=== PATIENT | female | born 1985 | race Caucasian/White ===

== ENCOUNTER 2017-05-03 11:55 | Emergency (ER) | payer MEDICAID ==
--- NOTE | 2017-05-03 12:57 | EDM.PDOC ---
ED HPI GENERAL MEDICAL PROBLEM - General Chief Complaint: ENT Problem Stated Complaint: ABCESS TOOTH Time Seen by Provider: 05/03/17 13:02 Source of Information: Reports: Patient History Limitations: Reports: No Limitations - History of Present Illness INITIAL COMMENTS - FREE TEXT/NARRATIVE: pt arrived with facial swelling and a probable abcessd tooth. She has a fair amount of discomfort and she has used more of her pain meds then she should. Onset: Gradual, Other ( last 2-3 days. ) Duration: Hour(s):, Getting Worse Location: Reports: Face Associated Symptoms: Reports: Headaches, Other (pt has a history of migraine headaCHES. sHE DOES HAVE A UPCOMING APPT WITH dR Schmidt.) Left Tooth/Teeth Pain Score (Numeric/FACES): 6 - Related Data Allergies Allergy/AdvReac Type Severity Reaction Status Date / Time No Known Allergies Allergy Verified 05/03/17 12:24 Home Meds: Home Meds ClonazePAM [KlonoPIN] 1 tab PO ASDIRECTED 05/03/17 [History] FLUoxetine HCl [Fluoxetine HCl] 1 tab PO DAILY 05/03/17 [History] Hydrocodone/Acetaminophen [Hydrocodon-Acetaminophen 5-325] 1 tab PO BID PRN [History] Meloxicam 1 tab PO DAILY 05/03/17 [History] OLANZapine [Olanzapine] 1 tab PO DAILY 05/03/17 [History] Prazosin [Minpress] 1 tab PO DAILY 05/03/17 [History] Past Medical History Cardiovascular History: Reports: Hypertension, Other (See Below) Other Cardiovascular History: "small heart", tachycardia Respiratory History: Reports: Other (See Below) Other Respiratory History: chest tube for collapsed lung 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 Musculoskeletal History: Reports: Fracture, Osteoarthritis, Other (See Below) Other Musculoskeletal History: degenerative osteoarthritis Neurological History: Reports: Head Trauma, Migraines Psychiatric History: Reports: Anxiety, Bipolar, Depression, PTSD Oncologic (Cancer) History: Reports: Cervix - Past Surgical History HEENT Surgical History: Reports: Myringotomy w Tube(s) GI Surgical History: Reports: Other (See Below) Other GI Surgeries/Procedures: "bowel surgery after pole went through side", Musculoskeletal Surgical History: Reports: Other (See Below) Other Musculoskeletal Surgeries/Procedures:: right foot and right elbow surgery for bone fragment removal Social & Family History - Tobacco Use Smoking Status *Q: Light Tobacco Smoker Years of Tobacco use: 17 Packs/Tins Daily: 0.4 - Recreational Drug Use Recreational Drug Use: No ED ROS ENT - Review of Systems Review Of Systems: See Below Constitutional: Reports: No Symptoms, Chills HEENT: Reports: No Symptoms, Dental Pain Respiratory: Reports: No Symptoms Cardiovascular: Reports: No Symptoms Endocrine: Reports: No Symptoms GI/Abdominal: Reports: No Symptoms : Reports: No Symptoms ED EXAM, ENT - Physical Exam Exam: See Below Text/Narrative:: T ARRIVED WITH INCREASED PAIN IN THE LEFT UPPER DENTALAREA. sHE HAS A HISTORY OF MULTIPLE CARRIOUS TEETH. Exam Limited By: No Limitations General Appearance: Alert, Anxious, Mild Distress Ears: Normal TMs Nose: Normal Inspection Mouth/Throat: Dental Pain, Dental Tenderness, Gum Swelling, Other (PT HAS LEFT FACIAL SWELLING. ) Head: Atraumatic Neck: Lymphadenopathy (L) Respiratory/Chest: No Respiratory Distress Cardiovascular: Regular Rate, Rhythm GI/Abdominal: Soft, Non-Tender Course - Vital Signs Last Recorded V/S: Last Vital Signs Temp 36.4 C 05/03/17 12:21 Pulse 105 H 05/03/17 12:21 Resp 16 05/03/17 12:21 BP 97/73 05/03/17 12:21 Pulse Ox 97 05/03/17 12:21 - Orders/Labs/Meds Meds: Medications Discontinued Medications Generic Name Dose Route Start Last Admin Trade Name Freq PRN Reason Stop Dose Admin Ceftriaxone Sodium 1 gm/ 0 gm 05/03/17 12:54 Lidocaine HCl 2.1 ml IM 05/03/17 12:55 ONETIME ONE - Re-Assessments/Exams Free Text/Narrative Re-Assessment/Exam: 05/03/17 13:12 PT WAS GIVEN ROCEPHEN 1 GM IM. a REFERAL FOR THE DENTAL CLINIC WAS SET UP FOR NEXT Sunday. Departure - Departure Time of Disposition: 12:54 Disposition: Home, Self-Care 01 Condition: Fair Clinical Impression: Dental abscess - Discharge Information Referrals: Nelida Holden MD [Primary Care Provider] - Forms: ED Department Discharge Care Plan Goals: push fluids, irrigate mouth with saline, clindomycin 300mg tid, norco 5/325 q6h prn for pain dental appt next sunday.
[2017-05-03] MEDS: cefTRIAXone 1 GM, Lidocaine 1% 2.1 ML IM ONE ×2 (13:20)
== END 2017-05-03 13:54 | disposition home or self-care (01) ==
LOC: JP.ED 11:55
DX: K04.7 Periapical abscess without sinus (principal); I10 Essential (primary) hypertension; F41.9 Anxiety disorder, unspecified; F32.9 Major depressive disorder, single episode, unspecified; F17.210 Nicotine dependence, cigarettes, uncomplicated; Z79.899 Other long term (current) drug therapy
CPT/HCPCS: 96372; 99283-25; J0696

== ENCOUNTER 2017-05-27 17:59 | Emergency (ER) | payer MEDICAID ==
[2017-05-27] MEDS ORDERED: Acetaminophen/oxyCODONE 325-10 MG Tab PO ONE (19:00)
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
== END 2017-05-27 19:32 | disposition home or self-care (01) ==
LOC: JP.ED 17:59
DX: G89.29 Other chronic pain (principal); M25.551 Pain in right hip; Z79.899 Other long term (current) drug therapy; F17.210 Nicotine dependence, cigarettes, uncomplicated
CPT/HCPCS: 99283; A9270

== ENCOUNTER 2018-08-24 16:27 | Emergency (ER) | payer MEDICAID ==
[2018-08-24] MEDS ORDERED: Ketorolac 30 MG/ML SDV IVPUSH ONE (17:35)
[2018-08-24] MEDS ORDERED: Ondansetron 4 MG/2 ML SDV IVPUSH ONE (17:36)
[2018-08-24] MEDS ORDERED: Morphine 2 MG/ML Syringe IVPUSH ONE (17:37)
[2018-08-24] MEDS ORDERED: Cyclobenzaprine 10 MG Tab PO ONE (17:38)
--- NOTE | 2018-08-24 17:44 | EDM.PDOC ---
ED HPI GENERAL MEDICAL PROBLEM - General Chief Complaint: Back Pain or Injury Stated Complaint: BACK PAIN Time Seen by Provider: 08/24/18 17:07 Source of Information: Reports: Patient History Limitations: Reports: No Limitations - History of Present Illness INITIAL COMMENTS - FREE TEXT/NARRATIVE: 32 yo female presents with radiating right sided lumbar back pain. She had a MRI 4 days ago and found L3-L4, L4-L5 protruding disc with impingement. radiating pain into right leg. She does have appt with neuro/surgery. She has been taking Gabapentin and methocarbamol, last took medication this AM. no new injury but she did note that this AM she was lifting cases of chicken. low back Pain Score (Numeric/FACES): 10 - Related Data Allergies Allergy/AdvReac Type Severity Reaction Status Date / Time No Known Allergies Allergy Verified 05/27/17 18:29 Home Meds: Home Meds OLANZapine [Olanzapine] 20 mg PO DAILY 05/03/17 [History] Dextroamphetamine/Amphetamine [Adderall 20 mg Tablet] 20 mg PO BID 08/24/18 [ History] Gabapentin [Neurontin] 300 mg PO BID 08/24/18 [History] Methocarbamol 500 mg PO TID PRN 08/24/18 [History] Omeprazole 40 mg PO ACBREAKFAST 08/24/18 [History] lamoTRIgine [Lamictal] 300 mg PO DAILY 08/24/18 [History] Past Medical History Cardiovascular History: Reports: Hypertension, Other (See Below) Other Cardiovascular History: "small heart", tachycardia Respiratory History: Reports: Other (See Below) Other Respiratory History: chest tube for collapsed lung Gastrointestinal History: Reports: GERD 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 Musculoskeletal History: Reports: Fracture, Osteoarthritis, Other (See Below) Other Musculoskeletal History: degenerative osteoarthritis Neurological History: Reports: Head Trauma, Migraines Psychiatric History: Reports: Anxiety, Bipolar, Depression, PTSD Oncologic (Cancer) History: Reports: Cervix - Past Surgical History HEENT Surgical History: Reports: Myringotomy w Tube(s) GI Surgical History: Reports: Other (See Below) Other GI Surgeries/Procedures: "bowel surgery after pole went through side", Musculoskeletal Surgical History: Reports: Hip Replacement, Other (See Below) Other Musculoskeletal Surgeries/Procedures:: right foot and right elbow surgery for bone fragment removal, right hip replacement Social & Family History - Tobacco Use Smoking Status *Q: Current Every Day Smoker Years of Tobacco use: 15 Packs/Tins Daily: 0.5 - Recreational Drug Use Recreational Drug Use: No ED ROS GENERAL - Review of Systems Review Of Systems: See Below Constitutional: Denies: Fever, Chills Respiratory: Denies: Shortness of Breath, Wheezing Cardiovascular: Denies: Chest Pain GI/Abdominal: Denies: Abdominal Pain ED EXAM,LOWER BACK PAIN/INJURY - Physical Exam Exam: See Below Exam Limited By: No Limitations General Appearance: Alert, WD/WN, No Apparent Distress Head: Atraumatic, Normocephalic Respiratory/Chest: No Respiratory Distress, Lungs Clear, Normal Breath Sounds, No Accessory Muscle Use, Chest Non-Tender. No: Crackles, Rhonchi, Wheezing Cardiovascular: Regular Rate, Rhythm, No Murmur Back Exam: Decreased Range of Motion (pain), Paraspinal Tenderness (right lumbar ). No: CVA Tenderness (R), CVA Tenderness (L) Neurological: Alert, Normal Mood/Affect Skin Exam: Warm, Dry, Intact Course - Vital Signs Last Recorded V/S: Last Vital Signs Temp 37.5 C 08/24/18 16:48 Pulse 60 08/24/18 18:38 Resp 12 08/24/18 18:38 BP 139/89 08/24/18 18:38 Pulse Ox 100 08/24/18 18:38 - Orders/Labs/Meds Meds: Medications Discontinued Medications Generic Name Dose Route Start Last Admin Trade Name Freq PRN Reason Stop Dose Admin Cyclobenzaprine HCl 10 mg 08/24/18 17:38 08/24/18 18:18 Flexeril PO 08/24/18 17:39 10 mg ONETIME ONE Administration Diphenhydramine HCl 25 mg 08/24/18 18:29 08/24/18 18:32 Benadryl IVPUSH 08/24/18 18:30 25 mg ONETIME ONE Administration Ketorolac Tromethamine 30 mg 08/24/18 17:35 08/24/18 18:24 Toradol IVPUSH 08/24/18 17:36 30 mg ONETIME ONE Administration Morphine Sulfate 1 mg 08/24/18 17:37 08/24/18 18:22 Morphine IVPUSH 08/24/18 17:38 1 mg ONETIME ONE Administration Ondansetron HCl 4 mg 08/24/18 17:36 08/24/18 18:19 Zofran IVPUSH 08/24/18 17:37 4 mg ONETIME ONE Administration Departure - Departure Time of Disposition: 18:57 Disposition: Home, Self-Care 01 Condition: Good Clinical Impression: Lumbar radicular pain - Discharge Information *PRESCRIPTION DRUG MONITORING PROGRAM REVIEWED*: Not Applicable *COPY OF PRESCRIPTION DRUG MONITORING REPORT IN PATIENT SAVANNA: Not Applicable Instructions: Muscle Strain, [id number] Referrals: Nelida Holden MD [Primary Care Provider] - Forms: ED Department Discharge Additional Instructions: prednisone burst - at the completion of the burst then naproxen (Aleve) twice daily until you see neurosurgery continue with your muscle relaxer as needed ice and heat alternating
[2018-08-24] MEDS ORDERED: diphenhydrAMINE 50 MG/ML SDV IVPUSH ONE (18:29)
== END 2018-08-24 19:29 | disposition home or self-care (01) ==
LOC: JP.ED 16:27
DX: M54.16 Radiculopathy, lumbar region (principal); I10 Essential (primary) hypertension; F41.9 Anxiety disorder, unspecified; F17.210 Nicotine dependence, cigarettes, uncomplicated; Z79.899 Other long term (current) drug therapy
CPT/HCPCS: 96374; 96375; 99283; A9270; J1200; J1885; J2270; J2405

== ENCOUNTER 2018-09-28 19:52 | Emergency (ER) | payer MEDICAID ==
[2018-09-28] MEDS ORDERED: LORazepam 1 MG Tab PO ONE (20:41)
[2018-09-28] MEDS ORDERED: Ketorolac 60 MG/2 ML SDV IM ONE (21:09)
--- NOTE | 2018-09-28 21:18 | EDM.PDOC ---
ED HPI GENERAL MEDICAL PROBLEM - General Chief Complaint: Neurological Problem Stated Complaint: DIZZY, CAN'T USE LEGS/FALLS Time Seen by Provider: 09/28/18 21:00 Source of Information: Reports: Patient, Old Records, RN History Limitations: Reports: No Limitations - History of Present Illness INITIAL COMMENTS - FREE TEXT/NARRATIVE: 32 yo female with known lumbar disc herniations presents with a hx of her legs giving out 3 times today. Has had this happen in the past. Was to the clinic for this recently and they didn't know what was wrong, her sx's had resolved then before she presented. Patient comes now to the ER due to the increasing frequency of this problem. No urinary or bowel incontinence. Had an MRI of her lumbar spine about 6 weeks ago and has seen a neurosurgeon. This neurosurgeon mentioned she may need an epidural injection in her low back. Fell in our waiting room due to her leg weakness and a concurrent panic attack that she also is prone to. Did take Ativan 1 mg po at home before arrival that didn't not resolve her attack. Onset: Today Onset Date: 09/28/18 Duration: Week(s):, Getting Worse, Intermittent Location: Reports: Lower Extremity, Left (Right leg is worse than L. ), Lower Extremity, Right Quality: Reports: Ache Severity: Moderate Improves with: Reports: Medication Worsens with: Reports: Other (? time) Context: Reports: Other (see HPI) Associated Symptoms: Reports: Headaches (has one now.), Weakness (both legs intermittently). Denies: Fever/Chills, Syncope Treatments DIRECTOR STRATEGY: Reports: Other (see below) (Usual meds + Ativan 1 mg po) low back Pain Score (Numeric/FACES): 7 - Related Data Allergies Allergy/AdvReac Type Severity Reaction Status Date / Time No Known Allergies Allergy Verified 09/28/18 20:48 Home Meds: Home Meds OLANZapine [Olanzapine] 20 mg PO BEDTIME 05/03/17 [History] Dextroamphetamine/Amphetamine [Adderall 20 mg Tablet] 20 mg PO BID 08/24/18 [ History] Gabapentin [Neurontin] 600 mg PO QID 08/24/18 [History] Methocarbamol 500 mg PO TID 08/24/18 [History] Omeprazole 40 mg PO ACBREAKFAST 08/24/18 [History] lamoTRIgine [Lamictal] 300 mg PO DAILY 08/24/18 [History] Albuterol [Ventolin HFA] 1 puff INH QID PRN 09/28/18 [History] Formoterol/Mometasone [Dulera 100 MCG/5 MCG] 2 puff INH BID 09/28/18 [History] LORazepam 1 mg PO QID 09/28/18 [History] busPIRone [Buspar] 10 mg PO TID 09/28/18 [History] carBAMazepine [Carbamazepine] 1 tab PO BEDTIME 09/28/18 [History] Past Medical History Cardiovascular History: Reports: Arrhythmia, Hypertension, Other (See Below) Other Cardiovascular History: "small heart", tachycardia Respiratory History: Reports: Asthma, Other (See Below) Other Respiratory History: chest tube for collapsed lung Gastrointestinal History: Reports: GERD 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 Musculoskeletal History: Reports: Fracture, Osteoarthritis, Other (See Below) Other Musculoskeletal History: degenerative osteoarthritis Neurological History: Reports: Brain Injury, Concussion, Head Trauma, Migraines Psychiatric History: Reports: Anxiety, Bipolar, Depression, PTSD Hematologic History: Reports: Blood Transfusion(s) Oncologic (Cancer) History: Reports: Cervix - Infectious Disease History Infectious Disease History: Reports: Chicken Pox - Past Surgical History HEENT Surgical History: Reports: Myringotomy w Tube(s) GI Surgical History: Reports: Colon, Small Bowel, Other (See Below) Other GI Surgeries/Procedures: "bowel surgery after pole went through side", Female Surgical History: Reports: Section, Cervical Cryotherapy, Tubal Ligation Musculoskeletal Surgical History: Reports: Hip Replacement, Other (See Below) Other Musculoskeletal Surgeries/Procedures:: right foot and right elbow surgery for bone fragment removal, right hip replacement Social & Family History - Tobacco Use Smoking Status *Q: Current Every Day Smoker Years of Tobacco use: 18 Packs/Tins Daily: 0.7 - Caffeine Use Caffeine Use: Reports: Coffee, Energy Drinks, Soda - Alcohol Use Days Per Week of Alcohol Use: 3 Number of Drinks Per Day: 2 Total Drinks Per Week: 6 - Recreational Drug Use Recreational Drug Use: No ED ROS GENERAL - Review of Systems Review Of Systems: See Below Constitutional: Reports: No Symptoms HEENT: Reports: No Symptoms Respiratory: Reports: No Symptoms Cardiovascular: Reports: No Symptoms GI/Abdominal: Reports: No Symptoms : Reports: No Symptoms. Denies: Incontinence Musculoskeletal: Reports: Back Pain (chronic) ED EXAM, NEURO - Physical Exam Exam: See Below Exam Limited By: No Limitations General Appearance: Alert, WD/WN, Mild Distress, Other (hyperventilating initially) Eye Exam: Bilateral Eye: Normal Inspection Ears: Normal External Exam, Normal Canal, Hearing Grossly Normal, Normal TMs Nose: Normal Inspection, No Blood Throat/Mouth: Normal Inspection, Normal Lips, Normal Oropharynx, Normal Voice, No Airway Compromise Head Exam: Atraumatic, Normocephalic Neck: Normal Inspection Respiratory/Chest: No Respiratory Distress, Lungs Clear, Normal Breath Sounds, No Accessory Muscle Use Cardiovascular: Regular Rate, Rhythm, No Edema GI/Abdominal: Normal Bowel Sounds, Soft, Non-Tender, No Distention Neurological: Alert, Normal Mood/Affect, Normal Dorsiflexion, CN II-XII Intact, Normal Plantar Flexion, No Motor/Sensory Deficits, Oriented x 3 DTR: 2+: Patella (R), Patella (L), Achilles (R), Achilles (L) Back Exam: Normal Inspection. No: CVA Tenderness (R), CVA Tenderness (L) Extremities: Normal Range of Motion, Non-Tender, No Pedal Edema Psychiatric: Normal Affect, Normal Mood Skin Exam: Warm, Dry, Normal Color, No Rash, Other (superficial abrasion R patellar area. ) Course - Vital Signs Last Recorded V/S: Last Vital Signs Temp 35.4 C 09/28/18 20:55 Pulse 83 09/28/18 21:42 Resp 18 09/28/18 21:42 BP 141/75 H 09/28/18 21:42 Pulse Ox 97 09/28/18 21:42 - Orders/Labs/Meds Meds: Medications Discontinued Medications Generic Name Dose Route Start Last Admin Trade Name Freq PRN Reason Stop Dose Admin Ketorolac Tromethamine 60 mg 09/28/18 21:09 09/28/18 21:23 Toradol IM 09/28/18 21:10 60 mg ONETIME ONE Administration Lorazepam 2 mg 09/28/18 20:41 09/28/18 20:52 Ativan PO 09/28/18 20:42 2 mg ONETIME ONE Administration Oxycodone/Acetaminophen 1 tab 09/28/18 21:56 09/28/18 22:01 Percocet 325-5 Mg PO 09/28/18 21:57 1 tab ONETIME ONE Administration Departure - Departure Time of Disposition: 22:30 Disposition: Home, Self-Care 01 Condition: Fair Clinical Impression: Lumbar disc disease with radiculopathy Headache Qualifiers: Headache type: unspecified Headache chronicity pattern: acute headache Intractability: not intractable Qualified Code(s): R51 - Headache - Discharge Information *PRESCRIPTION DRUG MONITORING PROGRAM REVIEWED*: No *COPY OF PRESCRIPTION DRUG MONITORING REPORT IN PATIENT SAVANNA: No Instructions: Herniated Disk, [id number] Referrals: Nelida Holden MD [Primary Care Provider] - Forms: ED Department Discharge Additional Instructions: F/U as discussed regarding your back issues. Consider using a walker to protect you from falls when your legs give out. Take Percocet as needed for pain.
[2018-09-28] MEDS ORDERED: Acetaminophen/oxyCODONE 325-5 MG Tab PO ONE (21:56)
== END 2018-09-28 22:33 | disposition home or self-care (01) ==
LOC: JP.ED 19:52
DX: S80.211A Abrasion, right knee, initial encounter (principal); M51.16 Intervertebral disc disorders with radiculopathy, lumbar region; R51 Headache; I10 Essential (primary) hypertension; J45.909 Unspecified asthma, uncomplicated; F31.9 Bipolar disorder, unspecified; F41.9 Anxiety disorder, unspecified; F17.210 Nicotine dependence, cigarettes, uncomplicated; Z79.899 Other long term (current) drug therapy; W18.39XA Other fall on same level, initial encounter
CPT/HCPCS: 96372; 99283; A9270; J1885

== ENCOUNTER 2018-11-07 17:56 | Emergency (ER) | payer MEDICAID ==
[2018-11-07] MEDS ORDERED: HYDROmorphone 1 MG/ML Syringe IM ONE (18:43)
--- NOTE | 2018-11-07 18:47 | EDM.PDOC ---
ED HPI GENERAL MEDICAL PROBLEM - General Chief Complaint: Lower Extremity Injury/Pain Stated Complaint: RIGHT HIP/RIGHT LEG PAIN Time Seen by Provider: 11/07/18 18:45 Source of Information: Reports: Patient History Limitations: Reports: No Limitations - History of Present Illness INITIAL COMMENTS - FREE TEXT/NARRATIVE: pt arrived with pain in the rt hip. She kessler not had a injuury. She has been much worse the last 2 days. She works on her feet alot in the [employer] at [employer]. Onset: Gradual, Other (last 2 days. ) Duration: Hour(s): Location: Reports: Lower Extremity, Right Associated Symptoms: Reports: Other ( severe rt hip pain. ) Right Hip Pain Score (Numeric/FACES): 10 - Related Data Allergies Allergy/AdvReac Type Severity Reaction Status Date / Time No Known Allergies Allergy Verified 11/07/18 18:29 Home Meds: Home Meds OLANZapine [Olanzapine] 20 mg PO BEDTIME 05/03/17 [History] Dextroamphetamine/Amphetamine [Adderall 20 mg Tablet] 20 mg PO TID 08/24/18 [ History] Gabapentin [Neurontin] 600 mg PO QID 08/24/18 [History] Omeprazole 40 mg PO ACBREAKFAST 08/24/18 [History] lamoTRIgine [Lamictal] 300 mg PO DAILY 08/24/18 [History] Albuterol [Ventolin HFA] 1 puff INH QID PRN 09/28/18 [History] Formoterol/Mometasone [Dulera 100 MCG/5 MCG] 2 puff INH BID 09/28/18 [History] busPIRone [Buspar] 10 mg PO TID 09/28/18 [History] carBAMazepine [Carbamazepine] 1 tab PO BEDTIME 09/28/18 [History] ALPRAZolam [Alprazolam] 1 tab PO QID PRN 11/07/18 [History] Cyproheptadine HCl 1 - 2 tab PO BEDTIME 11/07/18 [History] tiZANidine [Zanaflex] 1 tab PO DAILY 11/07/18 [History] Past Medical History HEENT History: Reports: Impaired Vision Cardiovascular History: Reports: Arrhythmia, Hypertension, Other (See Below) Other Cardiovascular History: "small heart", tachycardia Respiratory History: Reports: Asthma, Other (See Below) Other Respiratory History: chest tube for collapsed lung Gastrointestinal History: Reports: GERD PERIPHERAL VASCULAR TECH History: Reports: , Other (See Below) Other PERIPHERAL VASCULAR TECH 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 Musculoskeletal History: Reports: Fracture, Osteoarthritis, Other (See Below) Other Musculoskeletal History: degenerative osteoarthritis Neurological History: Reports: Brain Injury, Concussion, Head Trauma, Migraines Psychiatric History: Reports: Anxiety, Bipolar, Depression, PTSD Hematologic History: Reports: Blood Transfusion(s) Oncologic (Cancer) History: Reports: Cervix - Infectious Disease History Infectious Disease History: Reports: Chicken Pox - Past Surgical History HEENT Surgical History: Reports: Myringotomy w Tube(s) GI Surgical History: Reports: Colon, Small Bowel, Other (See Below) Other GI Surgeries/Procedures: "bowel surgery after pole went through side", Female Surgical History: Reports: Section, Cervical Cryotherapy, Tubal Ligation Musculoskeletal Surgical History: Reports: Hip Replacement, Other (See Below) Other Musculoskeletal Surgeries/Procedures:: right foot and right elbow surgery for bone fragment removal, right hip replacement Social & Family History - Tobacco Use Smoking Status *Q: Heavy Tobacco Smoker Years of Tobacco use: 15 Packs/Tins Daily: 1 - Caffeine Use Caffeine Use: Reports: Coffee, Energy Drinks, Soda - Recreational Drug Use Recreational Drug Use: No Review of Systems - Review of Systems Review Of Systems: See Below Constitutional: Reports: No Symptoms Eyes: Reports: No Symptoms Ears: Reports: No Symptoms Nose: Reports: No Symptoms Mouth/Throat: Reports: No Symptoms Respiratory: Reports: No Symptoms Cardiovascular: Reports: No Symptoms GI/Abdominal: Reports: No Symptoms Genitourinary: Reports: No Symptoms Musculoskeletal: Reports: Other (pain in the rt hip) Skin: Reports: No Symptoms ED EXAM, GENERAL - Physical Exam Exam: See Below Free Text/Narrative:: pt arrived with alot of pain in her hip. She is not having pain going down the back of her leg. Exam Limited By: No Limitations General Appearance: Alert, Anxious, Moderate Distress Ears: Normal TMs Nose: Normal Inspection Throat/Mouth: Normal Inspection Head: Atraumatic Neck: Normal Inspection Respiratory/Chest: No Respiratory Distress Cardiovascular: Normal Peripheral Pulses GI/Abdominal: Soft, Non-Tender (Female) Exam: Deferred Rectal (Female) Exam: Deferred Back Exam: Normal Inspection Extremities: Other (ptis having severe pain in the rt hip. She is very tender to palpate. ) Neurological: Alert, Oriented, Normal Cognition Course - Vital Signs Last Recorded V/S: Last Vital Signs Temp 36.7 C 11/07/18 18:25 Pulse 119 H 11/07/18 18:25 Resp 18 11/07/18 18:25 BP 154/90 H 11/07/18 18:25 Pulse Ox 97 11/07/18 18:25 - Orders/Labs/Meds Meds: Medications Discontinued Medications Generic Name Dose Route Start Last Admin Trade Name Freq PRN Reason Stop Dose Admin Hydromorphone HCl 1 mg 11/07/18 18:43 11/07/18 18:47 Dilaudid IM 11/07/18 18:44 1 mg ONETIME ONE Administration - Re-Assessments/Exams Free Text/Narrative Re-Assessment/Exam: 11/07/18 19:59 xray does not show a dislocation or any changes on the total hip. Departure - Departure Time of Disposition: 20:00 Disposition: Home, Self-Care 01 Condition: Fair Clinical Impression: Hip pain, right - Discharge Information Referrals: Nelida Holden MD [Primary Care Provider] - Forms: ED Department Discharge Care Plan Goals: cool pack to the rt hip. percocet 5/325 q6h prn for pain, minimal wt bearing, ortho appt at [facility] tomorrow.
--- NOTE | 2018-11-07 19:54 | CRLCR ---
INDICATION: Pain without injury. TECHNIQUE: AP and frog-leg lateral projections. FINDINGS: No acute fractures or dislocations identified. Ossified densities are seen projecting along the proximal superior aspect of the arthroplasty which may represent heterotopic bone or old posttraumatic changes. Enthesophyte or postsurgical change at the right iliac wing. Metallic coils of the right lower quadrant may be related to prior herniorrhaphy. IMPRESSION: Intact right hip arthroplasty with no definite acute osseous finding. Dictated by Mark Abdullahi MD @ Nov 07 2018 7:52PM Signed by Dr. Mark Abdullahi @ Nov 07 2018 7:53PM
== END 2018-11-07 20:11 | disposition home or self-care (01) ==
LOC: JP.ED 17:56
DX: M25.551 Pain in right hip (principal); I10 Essential (primary) hypertension; J45.909 Unspecified asthma, uncomplicated; K21.9 Gastro-esophageal reflux disease without esophagitis; F41.9 Anxiety disorder, unspecified; F32.9 Major depressive disorder, single episode, unspecified; Z98.51 Tubal ligation status; F17.210 Nicotine dependence, cigarettes, uncomplicated; Z79.899 Other long term (current) drug therapy
CPT/HCPCS: 73502; 96372; 99283; J1170

== ENCOUNTER 2018-11-16 19:33 | Emergency (ER) | payer MEDICAID ==
[2018-11-16] MEDS ORDERED: diphenhydrAMINE 50 MG/ML SDV IVPUSH ONE (20:22)
[2018-11-16] MEDS ORDERED: Ketorolac 30 MG/ML SDV IVPUSH ONE (20:22)
[2018-11-16] MEDS ORDERED: Prochlorperazine 10 MG/2 ML SDV IVPUSH ONE ×2 (20:22→22:38)
[2018-11-16] MEDS ORDERED: Sodium Chloride 0.9% 1,000 ML IV SCH (20:30)
--- NOTE | 2018-11-16 21:03 | EDM.PDOC ---
ED HPI GENERAL MEDICAL PROBLEM - General Chief Complaint: Abdominal Pain Stated Complaint: NAUSEA,VOMITING Time Seen by Provider: 11/16/18 20:40 Source of Information: Reports: Patient, Family (signficiant other) History Limitations: Reports: No Limitations - History of Present Illness INITIAL COMMENTS - FREE TEXT/NARRATIVE: Alert 33 year old female present to ER with vomiting and dry heaving for the last 4 days. Patient started vomiting on and attempted to use ODT Zofran she had at home with minimal improvement of her symptoms. Patient took Zofran yesterday am and dry heaved. Patient last ate around 5 pm yesterday. She attempted to try Zofran again today but dry heaving within 30 minutes which has continued all day. Patient was evaluated in the clinic and given IM Zofran with minimal improvement of nausea and dry heaving. Patient has diffuse abdominal pain which started the last 2 days. Patient believe abdominal pain is due to forceful vomiting. Patient is adamant she is not due to tubal ligation and significant other had vasectomy. Patient does not recall her last period. Patient had looser brown stool this am. No others at home are ill. Patient denies illegal or illicit drug use or marijuana use. Patient has a slight headache but not severe enough to take medications. She has a history of migraine headaches but not this week. She denies sore throat cough or URI symptoms. No urinary symptoms. No rashes or sore to skin. abd Pain Score (Numeric/FACES): 5 - Related Data Allergies Allergy/AdvReac Type Severity Reaction Status Date / Time No Known Allergies Allergy Verified 11/07/18 18:29 Home Meds: Home Meds OLANZapine [Olanzapine] 20 mg PO BEDTIME 05/03/17 [History] Dextroamphetamine/Amphetamine [Adderall 20 mg Tablet] 20 mg PO TID 08/24/18 [ History] Gabapentin [Neurontin] 600 mg PO QID 08/24/18 [History] Omeprazole 40 mg PO ACBREAKFAST 08/24/18 [History] lamoTRIgine [Lamictal] 300 mg PO DAILY 08/24/18 [History] Albuterol [Ventolin HFA] 1 puff INH QID PRN 09/28/18 [History] Formoterol/Mometasone [Dulera 100 MCG/5 MCG] 2 puff INH BID 09/28/18 [History] busPIRone [Buspar] 10 mg PO TID 09/28/18 [History] carBAMazepine [Carbamazepine] 1 tab PO BEDTIME 09/28/18 [History] ALPRAZolam [Alprazolam] 1 tab PO QID PRN 11/07/18 [History] Cyproheptadine HCl 1 - 2 tab PO BEDTIME 11/07/18 [History] tiZANidine [Zanaflex] 1 tab PO DAILY 11/07/18 [History] Metoclopramide HCl [Reglan] 10 mg PO TIDAC 5 Days #20 tablet 11/16/18 [Rx] Promethazine HCl [Phenergan] 12.5 mg RC BID PRN 5 Days #5 supp.rect 11/16/18 [Rx ] diphenhydrAMINE [Diphenhist] 50 mg PO Q6HR PRN 5 Days #1 bottle 11/16/18 [Rx] Past Medical History HEENT History: Reports: Impaired Vision Cardiovascular History: Reports: Arrhythmia, Hypertension, Other (See Below) Other Cardiovascular History: "small heart", tachycardia Respiratory History: Reports: Asthma, Other (See Below) Other Respiratory History: chest tube for collapsed lung Gastrointestinal History: Reports: GERD MEDIA SENIOR RECRUITER History: Reports: , Other (See Below) Other MEDIA SENIOR RECRUITER 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 Musculoskeletal History: Reports: Fracture, Osteoarthritis, Other (See Below) Other Musculoskeletal History: degenerative osteoarthritis Neurological History: Reports: Brain Injury, Concussion, Head Trauma, Migraines Psychiatric History: Reports: Anxiety, Bipolar, Depression, PTSD Hematologic History: Reports: Blood Transfusion(s) Oncologic (Cancer) History: Reports: Cervix - Infectious Disease History Infectious Disease History: Reports: Chicken Pox - Past Surgical History HEENT Surgical History: Reports: Myringotomy w Tube(s) GI Surgical History: Reports: Colon, Small Bowel, Other (See Below) Other GI Surgeries/Procedures: "bowel surgery after pole went through side", Female Surgical History: Reports: Section, Cervical Cryotherapy, Tubal Ligation Musculoskeletal Surgical History: Reports: Hip Replacement, Other (See Below) Other Musculoskeletal Surgeries/Procedures:: right foot and right elbow surgery for bone fragment removal, right hip replacement Social & Family History - Family History Family Medical History: Noncontributory - Tobacco Use Smoking Status *Q: Current Every Day Smoker Years of Tobacco use: 20 Packs/Tins Daily: 1 - Caffeine Use Caffeine Use: Reports: Coffee, Energy Drinks, Soda Caffeine Use Comment: 2 cups of coffee per day, 1 monster energy drink daily, a pepsi a day. - Alcohol Use Days Per Week of Alcohol Use: 3 Number of Drinks Per Day: 2 Total Drinks Per Week: 6 - Recreational Drug Use Recreational Drug Use: No ED ROS GENERAL - Review of Systems Review Of Systems: ROS reveals no pertinent complaints other than HPI. ED EXAM, GI/ABD - Physical Exam Exam: See Below Exam Limited By: No Limitations General Appearance: Alert, WD/WN, Moderate Distress Eyes: Bilateral: Normal Appearance, EOMI Ears: Normal External Exam, Normal Canal, Hearing Grossly Normal Nose: Normal Inspection, Normal Mucosa, Other (nose rings/piercings) Throat/Mouth: Normal Inspection, Normal Lips, Normal Teeth, Normal Voice, Other (mutiple mouth/lip piercings) Head: Normocephalic Neck: Normal Inspection, Supple, Non-Tender, Full Range of Motion Respiratory/Chest: No Respiratory Distress, Lungs Clear, Normal Breath Sounds, No Accessory Muscle Use, Chest Non-Tender Cardiovascular: Normal Peripheral Pulses, Regular Rate, Rhythm, No Edema, No Gallop, No JVD, No Murmur, No Rub GI/Abdominal Exam: Normal Bowel Sounds, Soft, No Distention, No Abnormal Bruit, Tender (periumbilical msucel pain worse with muscle contraction and palpation), Other (obvious vetricle midline abdomina incision). No: Distended, Guarding, Rigid, Rebound Course - Vital Signs Last Recorded V/S: Last Vital Signs Temp 37.4 C 11/16/18 20:08 Pulse 93 11/16/18 22:38 Resp 16 11/16/18 20:08 BP 113/81 11/16/18 22:38 Pulse Ox 96 11/16/18 22:38 - Orders/Labs/Meds Orders: Active Orders 24 hr Category Date Time Status Vital Signs [RC] PFP Care 11/16/18 22:48 Active Sodium Chloride 0.9% [Normal Saline] 1,000 ml Med 11/16/18 20:30 Active IV ASDIRECTED Medication Orders Sodium Chloride (Normal Saline) 1,000 mls @ 500 mls/hr IV ASDIRECTED JAY Last Admin: 11/16/18 20:51 Dose: 500 mls/hr Labs: Laboratory Tests 11/16/18 11/16/18 11/16/18 Range/Units 20:25 20:25 20:45 WBC 8.0 (4.5-11.0) K/uL RBC 4.37 (3.30-5.50) M/uL Hgb 13.8 (12.0-15.0) g/dL Hct 41.1 (36.0-48.0) % MCV 94 (80-98) fL MCH 32 H (27-31) pg MCHC 34 (32-36) % Plt Count 404 H (150-400) K/uL Neut % (Auto) 50 (36-66) % Lymph % (Auto) 38 (24-44) % [place] % (Auto) 9 H (2-6) % Eos % (Auto) 2 (2-4) % Baso % (Auto) 1 (0-1) % Sodium (140-148) mmol/L Potassium (3.6-5.2) mmol/L Chloride (100-108) mmol/L Carbon Dioxide (21-32) mmol/L Anion Gap (5.0-14.0) mmol/L BUN (7-18) mg/dL Creatinine (0.6-1.0) mg/dL Est Cr Clr Drug Dosing mL/min Estimated GFR (MDRD) (>60) Glucose (74-106) mg/dL Calcium (8.5-10.1) mg/dL Magnesium (1.8-2.4) mg/dL Total Bilirubin (0.2-1.0) mg/dL Direct Bilirubin (0.0-0.2) mg/dL Indirect Bilirubin AST (15-37) U/L ALT (12-78) U/L Alkaline Phosphatase (46-116) U/L Total Protein (6.4-8.2) g/dL Albumin (3.4-5.0) g/dL Globulin (2.3-3.5) g/dL Albumin/Globulin Ratio (1.2-2.2) Lipase (73-393) U/L HCG, Qual Urine Color Yellow (YELLOW) Urine Appearance Clear (CLEAR) Urine pH 8.5 H (5.0-8.0) Ur Specific Salome 1.020 (1.008-1.030) Urine Protein Negative (NEGATIVE) mg/dL Urine Glucose (UA) Negative (NEGATIVE) mg/dL Urine Ketones Negative (NEGATIVE) mg/dL Urine Occult Blood Trace-intact H (NEGATIVE) Urine Nitrite Negative (NEGATIVE) Urine Bilirubin Negative (NEGATIVE) Urine Urobilinogen 2.0 H (0.2-1.0) EU/dL Ur Leukocyte Esterase Negative (NEGATIVE) Urine RBC 10-20 H (0-5) Urine WBC 0-5 (0-5) Ur Epithelial Cells Many Amorphous Sediment Few Urine Bacteria Few Urine Mucus Not seen Urine HCG, Qual Negative 11/16/18 11/16/18 11/16/18 Range/Units 20:45 20:45 20:45 WBC (4.5-11.0) K/uL RBC (3.30-5.50) M/uL Hgb (12.0-15.0) g/dL Hct (36.0-48.0) % MCV (80-98) fL MCH (27-31) pg MCHC (32-36) % Plt Count (150-400) K/uL Neut % (Auto) (36-66) % Lymph % (Auto) (24-44) % [place] % (Auto) (2-6) % Eos % (Auto) (2-4) % Baso % (Auto) (0-1) % Sodium 134 L (140-148) mmol/L Potassium 3.8 (3.6-5.2) mmol/L Chloride 98 L (100-108) mmol/L Carbon Dioxide 27 (21-32) mmol/L Anion Gap 12.8 (5.0-14.0) mmol/L BUN 6 L (7-18) mg/dL Creatinine 0.7 (0.6-1.0) mg/dL Est Cr Clr Drug Dosing 94.83 mL/min Estimated GFR (MDRD) > 60 (>60) Glucose 87 (74-106) mg/dL Calcium 9.1 (8.5-10.1) mg/dL Magnesium 1.8 (1.8-2.4) mg/dL Total Bilirubin 0.3 (0.2-1.0) mg/dL Direct Bilirubin 0.11 (0.0-0.2) mg/dL Indirect Bilirubin 0.19 AST 15 (15-37) U/L ALT 16 (12-78) U/L Alkaline Phosphatase 90 (46-116) U/L Total Protein 7.5 (6.4-8.2) g/dL Albumin 3.6 (3.4-5.0) g/dL Globulin 3.9 H (2.3-3.5) g/dL Albumin/Globulin Ratio 0.9 L (1.2-2.2) Lipase 85 (73-393) U/L HCG, Qual Negative Urine Color (YELLOW) Urine Appearance (CLEAR) Urine pH (5.0-8.0) Ur Specific Sal[place] (1.008-1.030) Urine Protein (NEGATIVE) mg/dL Urine Glucose (UA) (NEGATIVE) mg/dL Urine Ketones (NEGATIVE) mg/dL Urine Occult Blood (NEGATIVE) Urine Nitrite (NEGATIVE) Urine Bilirubin (NEGATIVE) Urine Urobilinogen (0.2-1.0) EU/dL Ur Leukocyte Esterase (NEGATIVE) Urine RBC (0-5) Urine WBC (0-5) Ur Epithelial Cells Amorphous Sediment Urine Bacteria Urine Mucus Urine HCG, Qual Meds: Medications Generic Name Dose Route Start Last Admin Trade Name Freq PRN Reason Stop Dose Admin Sodium Chloride 1,000 mls @ 500 mls/hr 11/16/18 20:30 11/16/18 20:51 Normal Saline IV 500 mls/hr ASDIRECTED JAY Administration Discontinued Medications Generic Name Dose Route Start Last Admin Trade Name Freq PRN Reason Stop Dose Admin Diphenhydramine HCl 50 mg 11/16/18 20:22 11/16/18 20:53 Benadryl IVPUSH 11/16/18 20:23 50 mg ONETIME ONE Administration Ketorolac Tromethamine 30 mg 11/16/18 20:22 11/16/18 21:28 Toradol IVPUSH 11/16/18 20:23 30 mg ONETIME ONE Administration Prochlorperazine Edisylate 5 mg 11/16/18 20:22 11/16/18 21:29 Compazine IVPUSH 11/16/18 20:23 5 mg ONETIME ONE Administration Prochlorperazine Edisylate 5 mg 11/16/18 22:38 11/16/18 23:15 Compazine IVPUSH 11/16/18 22:39 5 mg ONETIME ONE Administration - Re-Assessments/Exams Free Text/Narrative Re-Assessment/Exam: IVF infusing and nausea is improving after Benadryl, Compazine and Toradol Blood work shows no acute concerning findings. Urine is contaminated but not obvious signs of infection. IVF infusion is slow due to small vein in right forearm was the only accessible site. Patient is will given repeat dose of Compazine 5 mg and attempt to eat. Patient will be prescribed numerous medication to help control nausea and dry heaving and recommend she take for the next 48 hours to ensure to nausea under control. 11/16/18 22:51 Patient feeling improved but not 100% and was able to eat a few bites of her [employer] but the last three bites was too much. Patient is anxious to go to sleep at home. Patient would like the IVF stopped and head home at this time. 11/16/18 23:50 Departure - Departure Time of Disposition: 23:52 Disposition: Home, Self-Care 01 Clinical Impression: Nausea & vomiting, Dehydration - Discharge Information Prescriptions: diphenhydrAMINE [Diphenhist] 50 mg PO Q6HR PRN 5 Days #1 bottle PRN Reason: Nausea Metoclopramide HCl [Reglan] 10 mg PO TIDAC 5 Days #20 tablet Promethazine HCl [Phenergan] 12.5 mg RC BID PRN 5 Days #5 supp.rect PRN Reason: Vomiting Instructions: Nausea, Adult, Tardive Dyskinesia, Dehydration, Adult Referrals: Nelida Holden MD [Primary Care Provider] - 3 Days (recheck with PCP if not improving) Forms: ED Department Discharge Additional Instructions: 1. Increase fluid intake. 2. Continue zofran ODT as needed for nausea and vomiting First 3. Take 3 time tomorrow then as needed Reglan 5-10 mg 30 minutes before meals to help control nausea. Caution use with mental health medications. 4. Take Benadryl 25-50mg at night to help with continued nausea and sleep. 5. Phenergan 12.5 rectal suppository if needed for severe nausea and dry heaving. Caution with mental health medications. 6. Call PCP on Sunday for recheck this week if symptoms not improving or nearly completely resolved. 7. Return to ER if new worsening symptoms or concerns. Caution with nausea medications and mental health medication with tardive dyskinesia. - Problem List & Annotations (1) Dehydration SNOMED Code(s): 51168891 Code(s): E86.0 - DEHYDRATION Status: Acute Current Visit: Yes (2) Nausea & vomiting SNOMED Code(s): 49216760 Code(s): R11.2 - NAUSEA WITH VOMITING, UNSPECIFIED Status: Acute Current Visit: Yes - My Orders Last 24 Hours: My Active Orders 11/16/18 20:30 Sodium Chloride 0.9% [Normal Saline] 1,000 ml IV ASDIRECTED 11/16/18 22:48 Vital Signs [RC] PFP - Assessment/Plan Last 24 Hours: My Active Orders 11/16/18 20:30 Sodium Chloride 0.9% [Normal Saline] 1,000 ml IV ASDIRECTED 11/16/18 22:48 Vital Signs [RC] PFP
== END 2018-11-17 00:01 | disposition home or self-care (01) ==
LOC: JP.ED 19:33
DX: E86.0 Dehydration (principal); R11.2 Nausea with vomiting, unspecified; I10 Essential (primary) hypertension; J45.909 Unspecified asthma, uncomplicated; K21.9 Gastro-esophageal reflux disease without esophagitis; F41.9 Anxiety disorder, unspecified; F17.210 Nicotine dependence, cigarettes, uncomplicated; Z79.899 Other long term (current) drug therapy
CPT/HCPCS: 36415; 80048; 80076; 81001; 81025; 83690; 83735; 84703; 85025; 96361; 96374; 96375; 96376; 99284; J0780; J1200; J1885; J7030

== ENCOUNTER 2018-12-05 15:11 | Emergency (ER) | payer MEDICAID ==
--- NOTE | 2018-12-05 16:10 | EDM.PDOC ---
ED HPI GENERAL MEDICAL PROBLEM - General Chief Complaint: Neurological Problem Stated Complaint: POSSIBLE STROKE Time Seen by Provider: 12/05/18 15:36 Source of Information: Reports: Patient - History of Present Illness INITIAL COMMENTS - FREE TEXT/NARRATIVE: Patient presents for evaluation of a recent 2 episodes of dizziness and generalized weakness in the context of being up and around. She was at work this morning and shortly after arriving at work felt dizzy and then felt as though she was having trouble getting words out of her mouth. She knew what she wanted to say but she felt as though she couldn't produce the words. She felt that her right leg was weak and that she might not be able to stand up. 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 Symptoms continued through the day and she contacted her doctor's office. After describing symptoms , they contacted the patient's as the patient was not answering her phone while working, and told him that she should be brought to the emergency department. He eventually arrived at work and brought her for further evaluation. She states that yesterday, Sunday, 04 December, she was walking down some stairs at home and felt dizzy and then both legs "gave out." She had no loss of consciousness. She has no concerning injuries from that episode that in its overall nature it was similar to the one today. She states that these episodes always happen in the morning. She was seen in this department several months ago but her symptoms were not felt to be related to anything in the brain at that time. At some point, an MRI of the brain was ordered earlier this year and that was reported to her as being normal, meaning no evidence of mass or circulation/ischemic change. She is on multiple medications and this summer was started on alprazolam which she takes 4 times a day. She otherwise has had no adjustments to other medications. In addition to symptoms described above, she feels some tightness to her chest although no trouble breathing. Her legs feel as though they are back to normal. She is not dizzy at this time but still feels as though she is having trouble getting thoughts out. Onset: Today Duration: Minutes: (20) Location: Reports: Generalized (Dizzy and not herself) Improves with: Reports: None Worsens with: Reports: None Associated Symptoms: Reports: Other (Maybe trouble getting words out.) Chest Pain Score (Numeric/FACES): 1 - Related Data Allergies Allergy/AdvReac Type Severity Reaction Status Date / Time No Known Allergies Allergy Verified 12/05/18 15:33 Home Meds: Home Meds OLANZapine [Olanzapine] 20 mg PO BEDTIME 05/03/17 [History] Dextroamphetamine/Amphetamine [Adderall 20 mg Tablet] 60 mg PO TID 08/24/18 [ History] Gabapentin [Neurontin] 600 mg PO QID 08/24/18 [History] Omeprazole 40 mg PO ACBREAKFAST 08/24/18 [History] lamoTRIgine [Lamictal] 300 mg PO DAILY 08/24/18 [History] Albuterol [Ventolin HFA] 1 puff INH QID PRN 09/28/18 [History] Formoterol/Mometasone [Dulera 100 MCG/5 MCG] 2 puff INH BID 09/28/18 [History] carBAMazepine [Carbamazepine] 1 tab PO BEDTIME 09/28/18 [History] ALPRAZolam [Alprazolam] 1 tab PO QID 11/07/18 [History] Cyproheptadine HCl 1 - 2 tab PO BEDTIME 11/07/18 [History] Metoclopramide HCl [Reglan] 10 mg PO TIDAC 5 Days #20 tablet 11/16/18 [Rx] Promethazine HCl [Phenergan] 12.5 mg RC BID PRN 5 Days #5 supp.rect 11/16/18 [Rx ] diphenhydrAMINE [Diphenhist] 50 mg PO Q6HR PRN 5 Days #1 bottle 11/16/18 [Rx] Past Medical History HEENT History: Reports: Impaired Vision Cardiovascular History: Reports: Arrhythmia, Hypertension, Other (See Below) Other Cardiovascular History: "small heart", tachycardia Respiratory History: Reports: Asthma, Other (See Below) Other Respiratory History: chest tube for collapsed lung Gastrointestinal History: Reports: GERD Genitourinary History: Reports: None 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 Musculoskeletal History: Reports: Fracture, Osteoarthritis, Other (See Below) Other Musculoskeletal History: degenerative osteoarthritis Neurological History: Reports: Brain Injury, Concussion, Head Trauma, Migraines Psychiatric History: Reports: Anxiety, Bipolar, Depression, PTSD Hematologic History: Reports: Blood Transfusion(s) Oncologic (Cancer) History: Reports: Cervix - Infectious Disease History Infectious Disease History: Reports: Chicken Pox - Past Surgical History Head Surgeries/Procedures: Reports: None HEENT Surgical History: Reports: Myringotomy w Tube(s) Cardiovascular Surgical History: Reports: None Respiratory Surgical History: Reports: None GI Surgical History: Reports: Colon, Small Bowel, Other (See Below) Other GI Surgeries/Procedures: "bowel surgery after pole went through side", Female Surgical History: Reports: Section, Cervical Cryotherapy, Tubal Ligation Neurological Surgical History: Reports: None Musculoskeletal Surgical History: Reports: Hip Replacement, Other (See Below) Other Musculoskeletal Surgeries/Procedures:: right foot and right elbow surgery for bone fragment removal, right hip replacement Oncologic Surgical History: Reports: None Dermatological Surgical History: Reports: None Social & Family History - Family History Family Medical History: Noncontributory - Tobacco Use Smoking Status *Q: Current Every Day Smoker Years of Tobacco use: 15 Packs/Tins Daily: 1 Used Tobacco, but Quit: No - Caffeine Use Caffeine Use: Reports: Coffee, Energy Drinks, Soda Caffeine Use Comment: 2 cups of coffee per day, 1 monster energy drink daily, a pepsi a day. - Recreational Drug Use Recreational Drug Use: No ED ROS GENERAL - Review of Systems Review Of Systems: See Below - Physical Exam Exam: See Below Exam Limited By: No Limitations Course - Vital Signs Last Recorded V/S: Last Vital Signs Temp 35.9 C 12/05/18 15:38 Pulse 102 H 12/05/18 18:26 Resp 18 12/05/18 15:38 BP 120/73 12/05/18 18:26 Pulse Ox 96 12/05/18 18:26 - Orders/Labs/Meds Orders: Active Orders 24 hr Category Date Time Status EKG Documentation Completion [RC] ASDIRECTED Care 12/05/18 16:22 Active EKG 12 Lead [EK] Routine Ther 12/05/18 16:21 Ordered Labs: Laboratory Tests 12/05/18 12/05/18 12/05/18 Range/Units 16:29 16:29 16:29 WBC 8.5 (4.5-11.0) K/uL RBC 3.73 (3.30-5.50) M/uL Hgb 11.9 L (12.0-15.0) g/dL Hct 35.1 L (36.0-48.0) % MCV 94 (80-98) fL MCH 32 H (27-31) pg MCHC 34 (32-36) % Plt Count 349 (150-400) K/uL Neut % (Auto) 60 (36-66) % Lymph % (Auto) 31 (24-44) % [place] % (Auto) 8 H (2-6) % Eos % (Auto) 2 (2-4) % Baso % (Auto) 0 (0-1) % Sodium 129 L (140-148) mmol/L Potassium 3.6 (3.6-5.2) mmol/L Chloride 93 L (100-108) mmol/L Carbon Dioxide 26 (21-32) mmol/L Anion Gap 13.6 (5.0-14.0) mmol/L BUN 3 L (7-18) mg/dL Creatinine 0.7 (0.6-1.0) mg/dL Est Cr Clr Drug Dosing 94.83 mL/min Estimated GFR (MDRD) > 60 (>60) Glucose 77 (74-106) mg/dL Calcium 8.2 L (8.5-10.1) mg/dL Total Bilirubin 0.2 (0.2-1.0) mg/dL AST 14 L (15-37) U/L ALT 14 (12-78) U/L Alkaline Phosphatase 84 (46-116) U/L Total Protein 6.6 (6.4-8.2) g/dL Albumin 3.2 L (3.4-5.0) g/dL Globulin 3.4 (2.3-3.5) g/dL Albumin/Globulin Ratio 0.9 L (1.2-2.2) HCG, Qual Negative - Re-Assessments/Exams Free Text/Narrative Re-Assessment/Exam: 12/05/18 16:28 I discussed with the patient that sudden changes in dizziness and off-balance feelings are often cardiovascular in nature. The fact that she had a normal MRI earlier this summer and had had these episodes previously is reassuring. Given the medications she currently takes and the fact that many of them are dosed in the morning, she may be feeling off from the combination of medicines getting into her system first thing in the morning. She states she does not eat breakfast and never has. She does not understand why if this is related to medication that it doesn't happen every day. 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 Departure - Departure Time of Disposition: 18:41 Disposition: Home, Self-Care 01 Condition: Good Clinical Impression: Dizziness, Vasovagal near-syncope - Discharge Information *PRESCRIPTION DRUG MONITORING PROGRAM REVIEWED*: Not Applicable *COPY OF PRESCRIPTION DRUG MONITORING REPORT IN PATIENT SAVANNA: Not Applicable Instructions: Dizziness Referrals: Treva Painter PA-C [Primary Care Provider] - Forms: ED Department Discharge Additional Instructions: Avoid sudden changes in position. Continue current medications but I am concerned that you're taking too many medicines that could affect your alertness and balance, in particular the Xanax. Coordinate medications and dosing and any other investigations with your primary care as it sounds like you 've had quite a bit of testing performed already. I do not see anything new tonight that looks or sounds like stroke. - My Orders Last 24 Hours: My Active Orders 12/05/18 16:21 EKG 12 Lead [EK] Routine 12/05/18 16:22 EKG Documentation Completion [RC] ASDIRECTED - Assessment/Plan Last 24 Hours: My Active Orders 12/05/18 16:21 EKG 12 Lead [EK] Routine 12/05/18 16:22 EKG Documentation Completion [RC] ASDIRECTED
--- NOTE | 2018-12-05 17:11 | CRLCT ---
INDICATION: Dizziness, loss of coordination TECHNIQUE: CT head without contrast. COMPARISON: MR brain October 09, 2018. FINDINGS: CSF spaces: Within normal limits for age. Brain parenchyma: The valencia-white differentiation is normal. No sign of mass, hemorrhage, or midline shift. Skull base and calvarium: The visualized paranasal sinuses and mastoid air cells demonstrate no acute or significant findings. The visualized orbits are grossly unremarkable. No skull fractures. IMPRESSION: Unremarkable noncontrast head CT. Please note that all CT scans at this facility use dose modulation, iterative reconstruction, and/or weight-based dosing when appropriate to reduce radiation dose to as low as reasonably achievable. Dictated by Latisha Christian MD @ Dec 05 2018 5:09PM Signed by Dr. Latisha Christian @ Dec 05 2018 5:11PM
== END 2018-12-05 18:48 | disposition home or self-care (01) ==
LOC: JP.ED 15:11
DX: R42 Dizziness and giddiness (principal); R55 Syncope and collapse; I10 Essential (primary) hypertension; K21.9 Gastro-esophageal reflux disease without esophagitis; F41.9 Anxiety disorder, unspecified; F31.9 Bipolar disorder, unspecified; F17.210 Nicotine dependence, cigarettes, uncomplicated; J45.909 Unspecified asthma, uncomplicated; Z79.899 Other long term (current) drug therapy; Z79.51 Long term (current) use of inhaled steroids
CPT/HCPCS: 36415; 70450; 80053; 84703; 85025; 93005; 99285-25

== ENCOUNTER 2018-12-06 07:38 | Emergency (ER) | payer MEDICAID ==
--- NOTE | 2018-12-06 08:48 | EDM.PDOCBH ---
ED HPI GENERAL MEDICAL PROBLEM - General Chief Complaint: Neurological Problem Stated Complaint: TALKING NOT CLEAR Time Seen by Provider: 12/06/18 08:10 Source of Information: Reports: Patient, Family History Limitations: Reports: No Limitations - History of Present Illness INITIAL COMMENTS - FREE TEXT/NARRATIVE: 33-year-old female presents with one half hour of dysarthria. She presented with similar symptoms yesterday, CT of the head was negative. It was felt that she likely is having some type of medication side effect. She has no headache. No peripheral symptoms, however earlier this year she had several episodes of sudden paralysis of her lower extremities. She has had a brain MRI, head CT, cervical spine MRI, lumbar MRI, hip x-ray with bone scan and orthopedic consultation. Onset: Sudden Duration: Hour(s): (1 hour ago) Associated Symptoms: Reports: No Other Symptoms - Related Data Allergies Allergy/AdvReac Type Severity Reaction Status Date / Time No Known Allergies Allergy Verified 12/06/18 07:50 Home Meds: Home Meds OLANZapine [Olanzapine] 20 mg PO BEDTIME 05/03/17 [History] Dextroamphetamine/Amphetamine [Adderall 20 mg Tablet] 60 mg PO TID 08/24/18 [ History] Gabapentin [Neurontin] 600 mg PO QID 08/24/18 [History] Omeprazole 40 mg PO ACBREAKFAST 08/24/18 [History] lamoTRIgine [Lamictal] 300 mg PO DAILY 08/24/18 [History] Albuterol [Ventolin HFA] 1 puff INH QID PRN 09/28/18 [History] Formoterol/Mometasone [Dulera 100 MCG/5 MCG] 2 puff INH BID 09/28/18 [History] carBAMazepine [Carbamazepine] 1 tab PO BEDTIME 09/28/18 [History] ALPRAZolam [Alprazolam] 1 tab PO QID 11/07/18 [History] Cyproheptadine HCl 1 - 2 tab PO BEDTIME 11/07/18 [History] Metoclopramide HCl [Reglan] 10 mg PO TIDAC 5 Days #20 tablet 11/16/18 [Rx] Promethazine HCl [Phenergan] 12.5 mg RC BID PRN 5 Days #5 supp.rect 11/16/18 [Rx ] diphenhydrAMINE [Diphenhist] 50 mg PO Q6HR PRN 5 Days #1 bottle 11/16/18 [Rx] Past Medical History HEENT History: Reports: Impaired Vision Cardiovascular History: Reports: Arrhythmia, Hypertension, Other (See Below) Other Cardiovascular History: "small heart", tachycardia Respiratory History: Reports: Asthma, Other (See Below) Other Respiratory History: chest tube for collapsed lung Gastrointestinal History: Reports: GERD Genitourinary History: Reports: None 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 Musculoskeletal History: Reports: Fracture, Osteoarthritis, Other (See Below) Other Musculoskeletal History: degenerative osteoarthritis Neurological History: Reports: Brain Injury, Concussion, Head Trauma, Migraines Psychiatric History: Reports: Anxiety, Bipolar, Depression, PTSD Hematologic History: Reports: Blood Transfusion(s) Oncologic (Cancer) History: Reports: Cervix - Infectious Disease History Infectious Disease History: Reports: Chicken Pox - Past Surgical History Head Surgeries/Procedures: Reports: None HEENT Surgical History: Reports: Myringotomy w Tube(s) Cardiovascular Surgical History: Reports: None Respiratory Surgical History: Reports: None GI Surgical History: Reports: Colon, Small Bowel, Other (See Below) Other GI Surgeries/Procedures: "bowel surgery after pole went through side", Female Surgical History: Reports: Section, Cervical Cryotherapy, Tubal Ligation Neurological Surgical History: Reports: None Musculoskeletal Surgical History: Reports: Hip Replacement, Other (See Below) Other Musculoskeletal Surgeries/Procedures:: right foot and right elbow surgery for bone fragment removal, right hip replacement Oncologic Surgical History: Reports: None Social & Family History - Family History Family Medical History: Noncontributory - Tobacco Use Smoking Status *Q: Current Every Day Smoker Years of Tobacco use: 17 Packs/Tins Daily: 1 - Caffeine Use Caffeine Use: Reports: Coffee, Energy Drinks, Soda Caffeine Use Comment: 2 cups of coffee per day, 1 monster energy drink daily, a pepsi a day. - Alcohol Use Days Per Week of Alcohol Use: 7 Number of Drinks Per Day: 2 Total Drinks Per Week: 14 Date of Last Drink: 12/04/18 - Recreational Drug Use Recreational Drug Use: No ED ROS GENERAL - Review of Systems Review Of Systems: See Below Constitutional: Denies: Fever, Chills, Malaise HEENT: Denies: Vision Change Respiratory: Denies: Shortness of Breath, Cough Cardiovascular: Denies: Chest Pain GI/Abdominal: Denies: Nausea, Vomiting Skin: Reports: No Symptoms Neurological: Denies: Dizziness, Headache ED EXAM, BEHAVIORAL HEALTH - Physical Exam Exam: See Below Exam Limited By: No Limitations General Appearance: Alert, No Apparent Distress (Appears concerned but not distressed) Eye Exam: Bilateral Eye: Normal Inspection Throat/Mouth: Normal Inspection Head: Atraumatic Respiratory/Chest: No Respiratory Distress, Lungs Clear Cardiovascular: Regular Rate, Rhythm Neurological: Other (Other than the objective dysarthria and slow speech which is intermittent and waxing and waning, this patient has no objective neurologic deficits. She is texting on her phone normally and efficiently with both hands, ambulates without difficulty) COURSE, BEHAVIORAL HEALTH COMP - Course Vital Signs: Last Vital Signs Temp 98.0 F 12/06/18 07:58 Pulse 113 H 12/06/18 07:58 Resp 24 H 12/06/18 07:58 BP 149/93 H 12/06/18 07:58 Pulse Ox 97 12/06/18 07:58 Re-Assessment/Re-Exam: I read through the last 6 months of physical findings, testing, and consults. It 's very obvious that this patient is having some kind of psychiatric reaction to stress like conversion disorder. It's also compounded possibly by her many medications. They would like a second opinion on her treatment for her conditions, this was set up through [facility] here in [facility] but she is also going to contact her primary psychiatric provider and discuss any medication changes possible in the near future. Departure - Departure Time of Disposition: 09:01 Disposition: Home, Self-Care 01 Clinical Impression: Dysarthria, Conversion disorder - Discharge Information Instructions: Conversion Disorder Referrals: Nelida Holden MD [Primary Care Provider] - Forms: ED Department Discharge Additional Instructions: Appointment on December 30, 2018 at 3:00 pm at [facility]. Appointment on January 13, 2019 at 10:00 am at [facility]. Care Plan Goals: Call your primary psychiatric provider today for any near-term changes possible or other advice. Otherwise keep your new consultation with [facility] psychiatry as scheduled, possibly sooner if on a work in list. No work today. Increase activity as tolerated.
== END 2018-12-06 09:01 | disposition home or self-care (01) ==
LOC: JP.ED 07:38
DX: R47.1 Dysarthria and anarthria (principal); I10 Essential (primary) hypertension; J45.909 Unspecified asthma, uncomplicated; F41.9 Anxiety disorder, unspecified; F32.9 Major depressive disorder, single episode, unspecified; F17.210 Nicotine dependence, cigarettes, uncomplicated; Z79.899 Other long term (current) drug therapy; Z79.51 Long term (current) use of inhaled steroids
CPT/HCPCS: 99284

== ENCOUNTER 2019-04-13 13:29 | Emergency (ER) | payer MEDICAID ==
--- NOTE | 2019-04-13 13:59 | EDM.PDOC ---
ED HPI GENERAL MEDICAL PROBLEM - General Chief Complaint: Laceration Stated Complaint: CUT LT MIDDLE FINGER Time Seen by Provider: 04/13/19 13:59 Source of Information: Reports: RN Notes Reviewed - History of Present Illness INITIAL COMMENTS - FREE TEXT/NARRATIVE: 33 years old female patient presented with chief complaint of cut of her left middle finger. She was cutting some meat and injured her finger. Started losing blood. No other injury. And she is up-to-date for her tetanus. - Related Data Allergies Allergy/AdvReac Type Severity Reaction Status Date / Time No Known Allergies Allergy Verified 04/13/19 13:50 Home Meds: Home Meds OLANZapine [Olanzapine] 20 mg PO BEDTIME 05/03/17 [History] Dextroamphetamine/Amphetamine [Adderall 20 mg Tablet] 60 mg PO TID 08/24/18 [ History] Gabapentin [Neurontin] 600 mg PO QID 08/24/18 [History] Omeprazole 40 mg PO ACBREAKFAST 08/24/18 [History] lamoTRIgine [Lamictal] 300 mg PO DAILY 08/24/18 [History] Albuterol [Ventolin HFA] 1 puff INH QID PRN 09/28/18 [History] Formoterol/Mometasone [Dulera 100 MCG/5 MCG] 2 puff INH BID 09/28/18 [History] carBAMazepine [Carbamazepine] 1 tab PO BEDTIME 09/28/18 [History] ALPRAZolam [Alprazolam] 1 tab PO QID 11/07/18 [History] Cyproheptadine HCl 1 - 2 tab PO BEDTIME 11/07/18 [History] Metoclopramide HCl [Reglan] 10 mg PO TIDAC 5 Days #20 tablet 11/16/18 [Rx] Promethazine HCl [Phenergan] 12.5 mg RC BID PRN 5 Days #5 supp.rect 11/16/18 [Rx ] diphenhydrAMINE [Diphenhist] 50 mg PO Q6HR PRN 5 Days #1 bottle 11/16/18 [Rx] Past Medical History HEENT History: Reports: Impaired Vision Cardiovascular History: Reports: Arrhythmia, Hypertension, Other (See Below) Other Cardiovascular History: "small heart", tachycardia Respiratory History: Reports: Asthma, Other (See Below) Other Respiratory History: chest tube for collapsed lung Gastrointestinal History: Reports: GERD Genitourinary History: Reports: None 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 Musculoskeletal History: Reports: Fracture, Osteoarthritis, Other (See Below) Other Musculoskeletal History: degenerative osteoarthritis Neurological History: Reports: Brain Injury, Concussion, Head Trauma, Migraines Psychiatric History: Reports: Anxiety, Bipolar, Depression, PTSD Endocrine/Metabolic History: Reports: None Hematologic History: Reports: Blood Transfusion(s) Immunologic History: Reports: None Oncologic (Cancer) History: Reports: Cervix Dermatologic History: Reports: None - Infectious Disease History Infectious Disease History: Reports: Chicken Pox - Past Surgical History Head Surgeries/Procedures: Reports: None HEENT Surgical History: Reports: Myringotomy w Tube(s) Cardiovascular Surgical History: Reports: None Respiratory Surgical History: Reports: None GI Surgical History: Reports: Colon, Small Bowel, Other (See Below) Other GI Surgeries/Procedures: "bowel surgery after pole went through side", Female Surgical History: Reports: Section, Cervical Cryotherapy, Tubal Ligation Neurological Surgical History: Reports: None Musculoskeletal Surgical History: Reports: Hip Replacement, Other (See Below) Other Musculoskeletal Surgeries/Procedures:: right foot and right elbow surgery for bone fragment removal, right hip replacement Oncologic Surgical History: Reports: None Dermatological Surgical History: Reports: None Social & Family History - Family History Family Medical History: Noncontributory - Caffeine Use Caffeine Use: Reports: None Caffeine Use Comment: 2 cups of coffee per day, 1 monster energy drink daily, a pepsi a day. ED ROS GENERAL - Review of Systems Review Of Systems: See Below ED EXAM, SKIN/RASH Exam: See Below Exam Limited By: No Limitations General Appearance: Alert, WD/WN, No Apparent Distress Head: Atraumatic, Normocephalic Neck: Normal Inspection, Supple, Non-Tender, Full Range of Motion Respiratory/Chest: No Respiratory Distress, Lungs Clear, Normal Breath Sounds, No Accessory Muscle Use, Chest Non-Tender Cardiovascular: Normal Peripheral Pulses, Regular Rate, Rhythm, No Edema, No Gallop, No JVD, No Murmur, No Rub GI/Abdominal: Normal Bowel Sounds, Soft, Non-Tender, No Organomegaly, No Distention, No Abnormal Bruit, No Mass Extremities: Normal Inspection, Normal Range of Motion, Non-Tender, No Pedal Edema, Normal Capillary Refill, Other (Skin tear of the palmar surface of the left middle finger distal phalanx. Very superficial minimal oozing. CMS intact. No foreign body) Course - Vital Signs Last Recorded V/S: Last Vital Signs Temp 36.9 C 04/13/19 13:49 Pulse 97 04/13/19 13:49 Resp 16 04/13/19 13:49 BP 142/87 H 04/13/19 13:49 Pulse Ox 98 04/13/19 13:49 - Re-Assessments/Exams Free Text/Narrative Re-Assessment/Exam: 04/13/19 14:02 Patient was seen and examined shortly after arrival. Stable. She is up-to-date for her tetanus. Very superficial skin tear. Washed and irrigated with normal saline. Bacitracin applied and pressure dressing. No need for stitches at this point. Advised to keep it dry and clean, daily bacitracin, dressing changes, close follow-up with PCP in one week, sooner if symptom worsen. Come back for any concern or any worsening symptom. Patient agrees with the plan. Stable for discharge. Departure - Departure Time of Disposition: 14:04 Disposition: Home, Self-Care 01 Condition: Good Clinical Impression: Skin tear - Discharge Information *PRESCRIPTION DRUG MONITORING PROGRAM REVIEWED*: Not Applicable *COPY OF PRESCRIPTION DRUG MONITORING REPORT IN PATIENT SAVANNA: Not Applicable Instructions: Skin Tear Care, Laceration Care, Adult, [id number] Referrals: PCP,None [Primary Care Provider] - Additional Instructions: Advised to keep it dry and clean, daily bacitracin, dressing changes, close follow-up with PCP in one week, sooner if symptom worsen. Come back for any concern or any worsening symptom Sepsis Event Note - Focused Exam Vital Signs: Vital Signs Temp Pulse Resp BP Pulse Ox 04/13/19 13:49 36.9 C 97 16 142/87 H 98 Date Exam was Performed: 04/13/19 Time Exam was Performed: 13:52 - Assessment/Plan Plan: Advised to keep it dry and clean, daily bacitracin, dressing changes, close follow-up with PCP in one week, sooner if symptom worsen. Come back for any concern or any worsening symptom
[2019-04-13] MEDS ORDERED: Bacitracin Oint 1 GM U/D Packet ONE (14:00)
[2019-04-13] MEDS ORDERED: Bacitracin Oint 1 GM U/D Packet TOP SCH (14:15)
[2019-04-13] MEDS ORDERED: Bacitracin Oint 28.35 GM Tube TOP SCH (21:00)
== END 2019-04-13 14:15 | disposition home or self-care (01) ==
LOC: JP.ED 13:29
DX: S61.213A Laceration without foreign body of left middle finger without damage to nail, initial encounter (principal); I10 Essential (primary) hypertension; Z79.899 Other long term (current) drug therapy; W26.0XXA Contact with knife, initial encounter
CPT/HCPCS: 99282

== ENCOUNTER 2019-05-07 05:50 | Inpatient (IN) | payer MEDICAID ==
[~2019-05-07 05:50] MED LIST: Lactated Ringers 1,000 ML IV SCH
[2019-05-07] MEDS ORDERED: Nozin Nasal Sanitizer NASBOTH SCH (06:20)
[2019-05-07] MEDS ORDERED: Povidone-Iodine 10% Soln 118.25 ML Bottle ONE (06:39)
[2019-05-07] MEDS ORDERED: ceFAZolin 2 GM in Premix Bag 1 BAG IV ONE (06:44)
[2019-05-07] MEDS ORDERED: Midazolam 1 MG/ML 2 ML SDV ONE ×2 (07:27→07:59)
[2019-05-07] MEDS ORDERED: fentaNYL 100 MCG/2 ML SDV ONE ×2 (07:27→09:29)
[2019-05-07] MEDS ORDERED: Propofol 200 MG/20 ML SDV ONE ×5 (07:28→09:34)
[2019-05-07] MEDS ORDERED: SODIUM CHLORIDE 0.9% IV ONE (07:45)
[2019-05-07] MEDS ORDERED: TRANEXAMIC ACID IV ONE (07:45)
[2019-05-07] MEDS ORDERED: Lactated Ringers 1,000 ML ONE (08:43)
[2019-05-07] MEDS ORDERED: SODIUM CHLORIDE 0.9% IV PRN (09:45)
[2019-05-07] MEDS ORDERED: TRANEXAMIC ACID IV PRN (09:45)
[2019-05-07] MEDS ORDERED: Acetaminophen 325 MG Tab PO PRN (10:19)
[2019-05-07] MEDS ORDERED: Magnesium Hydroxide 400 MG/5 ML Susp 30 ML Cup PO PRN ×2 (10:19→11:19)
[2019-05-07] MEDS ORDERED: Morphine 2 MG/ML SYRINGE IVPUSH PRN (10:19)
[2019-05-07] MEDS ORDERED: Ondansetron 4 MG Tab.DIS PO PRN ×2 (10:19→11:19)
[2019-05-07] MEDS ORDERED: Albuterol 8 GM Inhaler INH PRN (10:29)
--- NOTE | 2019-05-07 11:09 | CR ---
Hip Min 1V Rt CLINICAL HISTORY: Postop FINDINGS: Single AP view of the right hip shows a revised right total hip arthroplasty in place.. There is subcutaneous and intra-articular air. IMPRESSION: Postop right hip arthroplasty revision
[2019-05-07] MEDS: Sodium Chloride 0.9% 1,000 ML IV SCH ×2 (12:04→19:47)
[2019-05-07] MEDS: Morphine 2 MG/ML SYRINGE IVPUSH PRN ×5 (12:19→21:53)
[2019-05-07] MEDS: Acetaminophen/oxyCODONE 325-5 MG Tab PO PRN ×2 (12:50→23:38)
[2019-05-07] MEDS: busPIRone 10 MG Tab PO SCH ×2 (14:00→20:10)
[2019-05-07] MEDS ORDERED: busPIRone 10 MG Tab PO SCH (14:00)
[2019-05-07] MEDS: Amphetamine/Dextroamphetamine Salts 10 MG Tab PO SCH ×2 (14:00→16:37)
[2019-05-07] MEDS: ceFAZolin 1 GM in Premix Bag 1 BAG IV SCH ×2 (15:16→21:51)
[2019-05-07] MEDS: Gabapentin 300 MG Cap PO SCH ×2 (15:17→21:51)
[2019-05-07] MEDS: ALPRAZolam 0.5 MG Tab PO SCH ×2 (15:17→21:51)
[2019-05-07] MEDS ORDERED: ALPRAZOLAM PO SCH (16:00)
[2019-05-07] MEDS ORDERED: Gabapentin 300 MG Cap PO SCH (16:00)
[2019-05-07] MEDS: Acetaminophen/HYDROcodone 325-5 MG Tab PO PRN ×2 (16:38→20:27)
[2019-05-07] MEDS ORDERED: Calcium Carbonate 500 MG Tab.Chew PO PRN (16:53)
[2019-05-07] MEDS: Nozin Nasal Sanitizer NASBOTH SCH (20:09)
[2019-05-07] MEDS: Docusate Sodium 100 MG Cap PO SCH (20:10)
[2019-05-07] MEDS: CYPROHEPTADINE HCL 4 MG PO SCH (20:11)
[2019-05-07] MEDS: carBAMazepine 200 MG Tab PO SCH (20:11)
[2019-05-07] MEDS: OLANZapine 5 MG Tab PO SCH (20:12)
[2019-05-07] MEDS ORDERED: Non-Formulary Medication 1 Each (Olanzapine [Olanzapine] 20 MG) PO SCH (21:00)
[2019-05-07] MEDS ORDERED: carBAMazepine 200 MG Tab PO SCH (21:00)
[2019-05-07] MEDS ORDERED: Docusate Sodium 100 MG Cap PO SCH (21:00)
[2019-05-07] MEDS ORDERED: CYPROHEPTADINE HCL PO SCH (21:00)
[2019-05-08] MEDS: Acetaminophen/oxyCODONE 325-5 MG Tab PO PRN ×4 (03:49→19:53)
[2019-05-08] MEDS: ceFAZolin 1 GM in Premix Bag 1 BAG IV SCH (05:34)
[2019-05-08] MEDS: Gabapentin 300 MG Cap PO SCH ×4 (05:34→21:46)
[2019-05-08] MEDS: ALPRAZolam 0.5 MG Tab PO SCH ×4 (05:34→21:53)
[2019-05-08] MEDS ORDERED: Non-Formulary Medication 1 Each (Omeprazole [Omeprazole] 40 MG) PO SCH (07:30)
[2019-05-08] MEDS: Amphetamine/Dextroamphetamine Salts 10 MG Tab PO SCH ×4 (07:56→15:43)
[2019-05-08] MEDS: Pantoprazole 40 MG Tab.CR PO SCH (07:57)
[2019-05-08] MEDS: busPIRone 10 MG Tab PO SCH ×3 (07:59→21:45)
[2019-05-08] MEDS: Nozin Nasal Sanitizer NASBOTH SCH ×2 (08:00→21:43)
[2019-05-08] MEDS: Docusate Sodium 100 MG Cap PO SCH ×2 (08:00→21:45)
[2019-05-08] MEDS: lamoTRIgine 300 MG, lamoTRIgine 50 MG PO SCH ×2 (08:00)
[2019-05-08] MEDS ORDERED: lamoTRIgine 100 MG Tab PO SCH ×2 (09:00)
[2019-05-08] MEDS: Acetaminophen/HYDROcodone 325-5 MG Tab PO PRN (18:02)
[2019-05-08] MEDS: CYPROHEPTADINE HCL 4 MG PO SCH (21:45)
[2019-05-08] MEDS: carBAMazepine 200 MG Tab PO SCH (21:45)
[2019-05-08] MEDS: OLANZapine 5 MG Tab PO SCH (21:46)
[2019-05-09] MEDS: Acetaminophen/oxyCODONE 325-5 MG Tab PO PRN ×3 (01:34→10:07)
[2019-05-09] MEDS: ALPRAZolam 0.5 MG Tab PO SCH (05:45)
[2019-05-09] MEDS: Gabapentin 300 MG Cap PO SCH (05:45)
[2019-05-09] MEDS: lamoTRIgine 300 MG, lamoTRIgine 50 MG PO SCH ×2 (08:05)
[2019-05-09] MEDS: Amphetamine/Dextroamphetamine Salts 10 MG Tab PO SCH (08:05)
[2019-05-09] MEDS: Docusate Sodium 100 MG Cap PO SCH (08:05)
[2019-05-09] MEDS: Pantoprazole 40 MG Tab.CR PO SCH (08:05)
[2019-05-09] MEDS: busPIRone 10 MG Tab PO SCH (08:05)
[2019-05-09] MEDS: Nozin Nasal Sanitizer NASBOTH SCH (08:07)
--- NOTE | 2019-05-09 10:24 | PCM.SURGPN ---
- General Info Date of Service: 05/08/19 Date of Surgery/Procedure: 05/07/19 POD#: 1 Functional Status: Reports: Pain Controlled, Tolerating Diet, Ambulating, Urinating - Review of Systems General: Reports: No Symptoms HEENT: Reports: No Symptoms Pulmonary: Reports: No Symptoms Cardiovascular: Reports: No Symptoms Gastrointestinal: Reports: No Symptoms Genitourinary: Reports: No Symptoms Musculoskeletal: Reports: Leg Pain Skin: Reports: No Symptoms Neurological: Reports: No Symptoms Psychiatric: Reports: No Symptoms - Patient Data Vitals - Most Recent: Last Vital Signs Temp 36.8 C 05/09/19 08:53 Pulse 111 H 05/09/19 08:53 Resp 16 05/09/19 08:53 BP 118/72 05/09/19 08:53 Pulse Ox 96 05/09/19 08:53 Weight - Most Recent: 69.264 kg I&O - Last 24 Hours: Intake & Output 05/08/19 05/09/19 05/09/19 22:59 06:59 14:59 Intake Total 480 Output Total 900 500 Balance -420 -500 Miguel Results Last 24 Hrs: Microbiology 05/07/19 08:23 Anaerobic Culture - Preliminary Hip, Right NO GROWTH AFTER 2 DAYS 05/07/19 08:23 Gram Stain - Final Hip, Right Wound Culture - Preliminary NO GROWTH AFTER 2 DAYS Med Orders - Current: Current Medications Acetaminophen (Tylenol) 650 mg PO Q4H PRN PRN Reason: Pain/Fever Hydrocodone Bitart/Acetaminophen ([place] 325-5 Mg) 2 tab PO Q3H PRN PRN Reason: Pain (mild 1-3) Last Admin: 05/08/19 18:02 Dose: 1 tab Albuterol (Ventolin Hfa) 0 gm INH QID PRN PRN Reason: Wheezing Alprazolam (Xanax) 1 mg PO QID [facility] Last Admin: 05/09/19 05:45 Dose: 1 mg Amphetamine/Dextroamphetamine (Adderall) 15 mg PO 0700,1000,1300,1600 [facility] Last Admin: 05/09/19 08:05 Dose: 15 mg Bandage/Support Products ( Nasal Buffing Wheel Former Machine) 1 applic NASBOTH BID [facility] Stop: 05/14/19 21:01 Last Admin: 05/09/19 08:07 Dose: 1 dose Buspirone HCl (Buspar) 10 mg PO TID [facility] Last Admin: 05/09/19 08:05 Dose: 10 mg Calcium Carbonate/Glycine (Tums) 1,000 mg PO Q2H PRN PRN Reason: Indigestion Last Admin: 05/07/19 18:17 Dose: 1,000 mg Carbamazepine (Tegretol Tab) 400 mg PO BEDTIME [facility] Last Admin: 05/08/19 21:45 Dose: 400 mg Docusate Sodium (Colace) 100 mg PO BID [facility] Last Admin: 05/09/19 08:05 Dose: 100 mg Gabapentin (Neurontin) 600 mg PO QID [facility] Last Admin: 05/09/19 05:45 Dose: 600 mg Sodium Chloride (Normal Saline) 1,000 mls @ 125 mls/hr IV ASDIRECTED [facility] Last Admin: 05/07/19 19:47 Dose: 125 mls/hr Lamotrigine 300 mg/ (Lamotrigine 50 mg) 350 mg PO DAILY [facility] Last Admin: 05/09/19 08:05 Dose: 350 mg Magnesium Hydroxide (Milk Of Magnesia) 30 ml PO Q6H PRN PRN Reason: Stool Softener Morphine Sulfate (Morphine) 2 mg IVPUSH Q1H PRN PRN Reason: Breakthrough Pain Last Admin: 05/07/19 21:53 Dose: 2 mg Cyproheptadine Hcl (4mg *Pom*) 1 tab PO BEDTIME [facility] Last Admin: 05/08/19 21:45 Dose: 2 tab Olanzapine (Zyprexa) 20 mg PO BEDTIME [facility] Last Admin: 05/08/19 21:46 Dose: 20 mg Ondansetron HCl (Zofran Odt) 4 mg PO Q6H PRN PRN Reason: Nausea/Vomiting Oxycodone/Acetaminophen (Percocet 325-5 Mg) 0 tab PO Q4H PRN PRN Reason: Pain (moderate 4-6) Last Admin: 05/09/19 10:07 Dose: 2 tab Pantoprazole Sodium (Protonix) 40 mg PO ACBREAKFAST [facility] Last Admin: 05/09/19 08:05 Dose: 40 mg Discontinued Medications Bandage/Support Products ( Nasal Buffing Wheel Former Machine) 1 applic NASBOTH BID [facility] Last Admin: 05/07/19 06:12 Dose: 1 applic Buspirone HCl (Buspar) 10 mg PO TID [facility] Carbamazepine (Tegretol Tab) 400 mg PO BEDTIME [facility] Docusate Sodium (Colace) 100 mg PO BID [facility] Fentanyl (Sublimaze) Confirm Administered Dose 100 mcg .ROUTE .STK-MED ONE Stop: 05/07/19 07:28 Fentanyl (Sublimaze) Confirm Administered Dose 100 mcg .ROUTE .STK-MED ONE Stop: 05/07/19 09:30 Gabapentin (Neurontin) 600 mg PO QID [facility] Cefazolin Sodium/Dextrose 2 gm (/ Premix) 50 mls @ 100 mls/hr IV ONETIME ONE Stop: 05/07/19 07:13 Last Admin: 05/07/19 08:29 Dose: 100 mls/hr Lactated Ringer's (Ringers, Lactated) 1,000 mls @ 75 mls/hr IV ASDIRECTED [facility] Last Admin: 05/07/19 06:11 Dose: 75 mls/hr Tranexamic Acid 710 mg/ Sodium (Chloride) 57.1 mls @ 228.4 mls/hr IV ONETIME ONE Stop: 05/07/19 07:59 Last Admin: 05/07/19 12:22 Dose: 228.4 mls/hr Tranexamic Acid 710 mg/ Sodium (Chloride) 57.1 mls @ 228.4 mls/hr IV ONETIME PRN PRN Reason: 2ND DOSE IF PROVIDER REQUESTS Last Admin: 05/07/19 08:29 Dose: 228.4 mls/hr Lactated Ringer's (Ringers, Lactated) Confirm Administered Dose 1,000 mls @ as directed .ROUTE .STK-MED ONE Stop: 05/07/19 08:44 Cefazolin Sodium/Dextrose 1 gm (/ Premix) 50 mls @ 200 mls/hr IV Q8H [facility] Stop: 05/08/19 06:14 Last Admin: 05/08/19 05:34 Dose: 200 mls/hr Lamotrigine (Lamotrigine) 350 mg PO DAILY [facility] Lamotrigine (Lamotrigine) 350 mg PO DAILY [facility] Magnesium Hydroxide (Milk Of Magnesia) 30 ml PO Q6H PRN PRN Reason: Stool Softener Midazolam HCl (Versed 1 Mg/Ml) Confirm Administered Dose 2 mg .ROUTE .STK-MED ONE Stop: 05/07/19 07:28 Midazolam HCl (Versed 1 Mg/Ml) Confirm Administered Dose 2 mg .ROUTE .STK-MED ONE Stop: 05/07/19 08:00 Morphine Sulfate (Morphine) 2 mg IVPUSH Q1H PRN PRN Reason: Breakthrough Pain Non-Formulary Medication (Alprazolam [Alprazolam]) 1 tab PO QID [facility] Non-Formulary Medication (Cyproheptadine Hcl [Cyproheptadine Hcl]) 1 tab PO BEDTIME [facility] Non-Formulary Medication (Dextroamphetamine/Amphetamine [Adderall 20 Mg Tablet] ) 15 mg PO ASDIRECTED [facility] Non-Formulary Medication (Olanzapine [Olanzapine]) 20 mg PO BEDTIME [facility] Non-Formulary Medication (Omeprazole [Omeprazole]) 40 mg PO ACBREAKFAST [facility] Non-Formulary Medication (Dextroamphetamine/Amphetamine [Adderall 20 Mg Tablet] ) 15 mg PO ASDIRECTED [facility] Ondansetron HCl (Zofran Odt) 4 mg PO Q6H PRN PRN Reason: Nausea/Vomiting Povidone Iodine (Betadine 10% Soln) Confirm Administered Dose 1 ml .ROUTE .STK- MED ONE Stop: 05/07/19 06:40 Last Admin: 05/07/19 09:50 Dose: 25 ml Propofol (Diprivan 20 Ml) Confirm Administered Dose 200 mg .ROUTE .STK-MED ONE Stop: 05/07/19 07:29 Propofol (Diprivan 20 Ml) Confirm Administered Dose 200 mg .ROUTE .STK-MED ONE Stop: 05/07/19 08:10 Propofol (Diprivan 20 Ml) Confirm Administered Dose 200 mg .ROUTE .STK-MED ONE Stop: 05/07/19 08:36 Propofol (Diprivan 20 Ml) Confirm Administered Dose 200 mg .ROUTE .STK-MED ONE Stop: 05/07/19 09:04 Propofol (Diprivan 20 Ml) Confirm Administered Dose 200 mg .ROUTE .STK-MED ONE Stop: 05/07/19 09:35 - Exam Wound/Incisions: Dressing Dry and Intact, No Drainage General: Alert, Oriented HEENT: Pupils Equal Neck: Supple Lungs: Clear to Auscultation, Normal Respiratory Effort Cardiovascular: Regular Rate, Regular Rhythm GI/Abdominal Exam: Normal Bowel Sounds, Soft, Non-Tender, No Distention Extremities: Limited Range of Motion Skin: Warm, Dry Neurological: No New Focal Deficit Psy/Mental Status: Alert, Normal Affect, Normal Mood Sepsis Event Note - Evaluation Sepsis Screening Result: No Definite Risk - Focused Exam Vital Signs: Vital Signs Temp Temp Pulse Resp BP Pulse Ox 05/09/19 08:53 36.8 C 111 H 16 118/72 96 05/09/19 04:28 37 C 95 18 120/72 95 05/08/19 22:40 37.3 C 108 H 18 125/73 94 L Date Exam was Performed: 05/09/19 Time Exam was Performed: 10:19 - Problem List & Annotations (1) S/P revision of total hip SNOMED Code(s): 903236966, 709579963, 031120060, 511728086 Code(s): Z96.649 - PRESENCE OF UNSPECIFIED ARTIFICIAL HIP JOINT Status: Acute Current Visit: Yes (2) Aseptic loosening of prosthetic hip SNOMED Code(s): 250708074 Code(s): T84.038A - MECHANICAL LOOSENING OF OTH INTERNAL PROSTHETIC JOINT, INIT; Z96.649 - PRESENCE OF UNSPECIFIED ARTIFICIAL HIP JOINT Status: Acute Current Visit: No Qualifiers: Encounter type: sequela Qualified Code(s): T84.038S - Mechanical loosening of other internal prosthetic joint, sequela; Z96.649 - Presence of unspecified artificial hip joint (3) Heterotopic calcification, postoperative SNOMED Code(s): 11678372 Code(s): M96.89 - OTH INTRAOP AND POSTPROC COMP AND DISORDERS OF THE MS SYS; M61.40 - OTHER CALCIFICATION OF MUSCLE, UNSPECIFIED SITE Status: Acute Current Visit: No (4) S/P total hip arthroplasty SNOMED Code(s): 465436488678, 820132830186 Code(s): Z96.649 - PRESENCE OF UNSPECIFIED ARTIFICIAL HIP JOINT Status: Acute Current Visit: No Qualifiers: Laterality: right - Problem List Review Problem List Initiated/Reviewed/Updated: Yes - My Orders Last 24 Hours: Active Orders 24 hr Category Date Time Status Ready for Discharge [RC] PER UNIT ROUTINE Care 05/09/19 10:18 Ordered Medication Orders Acetaminophen (Tylenol) 650 mg PO Q4H PRN PRN Reason: Pain/Fever Hydrocodone Bitart/Acetaminophen ([place] 325-5 Mg) 2 tab PO Q3H PRN PRN Reason: Pain (mild 1-3) Last Admin: 05/08/19 18:02 Dose: 1 tab Admin: 05/07/19 20:27 Dose: 2 tab Admin: 05/07/19 16:38 Dose: 2 tab Albuterol (Ventolin Hfa) 0 gm INH QID PRN PRN Reason: Wheezing Alprazolam (Xanax) 1 mg PO QID [facility] Last Admin: 05/09/19 05:45 Dose: 1 mg Admin: 05/08/19 21:53 Dose: 1 mg Admin: 05/08/19 15:43 Dose: 1 mg Admin: 05/08/19 10:17 Dose: 1 mg Admin: 05/08/19 05:34 Dose: 1 mg Admin: 05/07/19 21:51 Dose: 1 mg Admin: 05/07/19 15:17 Dose: 1 mg Amphetamine/Dextroamphetamine (Adderall) 15 mg PO 0700,1000,1300,1600 [facility] Last Admin: 05/09/19 08:05 Dose: 15 mg Admin: 05/08/19 15:43 Dose: 15 mg Admin: 05/08/19 14:00 Dose: 15 mg Admin: 05/08/19 10:11 Dose: 15 mg Admin: 05/08/19 07:56 Dose: 15 mg Admin: 05/07/19 16:37 Dose: 15 mg Admin: 05/07/19 14:00 Dose: 15 mg Bandage/Support Products ( Nasal Buffing Wheel Former Machine) 1 applic NASBOTH BID [facility] Stop: 05/14/19 21:01 Last Admin: 05/09/19 08:07 Dose: 1 dose Admin: 05/08/19 21:43 Dose: 1 dose Admin: 05/08/19 08:00 Dose: 1 dose Admin: 05/07/19 20:09 Dose: 1 dose Buspirone HCl (Buspar) 10 mg PO TID [facility] Last Admin: 05/09/19 08:05 Dose: 10 mg Admin: 05/08/19 21:45 Dose: 10 mg Admin: 05/08/19 14:00 Dose: 10 mg Admin: 05/08/19 07:59 Dose: 10 mg Admin: 05/07/19 20:10 Dose: 10 mg Admin: 05/07/19 14:00 Dose: 10 mg Calcium Carbonate/Glycine (Tums) 1,000 mg PO Q2H PRN PRN Reason: Indigestion Last Admin: 05/07/19 18:17 Dose: 1,000 mg Carbamazepine (Tegretol Tab) 400 mg PO BEDTIME [facility] Last Admin: 05/08/19 21:45 Dose: 400 mg Admin: 05/07/19 20:11 Dose: 400 mg Docusate Sodium (Colace) 100 mg PO BID [facility] Last Admin: 05/09/19 08:05 Dose: 100 mg Admin: 05/08/19 21:45 Dose: 100 mg Admin: 05/08/19 08:00 Dose: 100 mg Admin: 05/07/19 20:10 Dose: 100 mg Gabapentin (Neurontin) 600 mg PO QID [facility] Last Admin: 05/09/19 05:45 Dose: 600 mg Admin: 05/08/19 21:46 Dose: 600 mg Admin: 05/08/19 15:44 Dose: 600 mg Admin: 05/08/19 10:12 Dose: 600 mg Admin: 05/08/19 05:34 Dose: 600 mg Admin: 05/07/19 21:51 Dose: 600 mg Admin: 05/07/19 15:17 Dose: 600 mg Sodium Chloride (Normal Saline) 1,000 mls @ 125 mls/hr IV ASDIRECTED [facility] Last Admin: 05/07/19 19:47 Dose: 125 mls/hr Infusion: 05/07/19 19:47 Dose: 125 mls/hr Admin: 05/07/19 12:04 Dose: 125 mls/hr Lamotrigine 300 mg/ (Lamotrigine 50 mg) 350 mg PO DAILY [facility] Last Admin: 05/09/19 08:05 Dose: 350 mg Admin: 05/08/19 08:00 Dose: 350 mg Magnesium Hydroxide (Milk Of Magnesia) 30 ml PO Q6H PRN PRN Reason: Stool Softener Morphine Sulfate (Morphine) 2 mg IVPUSH Q1H PRN PRN Reason: Breakthrough Pain Last Admin: 05/07/19 21:53 Dose: 2 mg Admin: 05/07/19 20:06 Dose: 2 mg Admin: 05/07/19 18:11 Dose: 2 mg Admin: 05/07/19 14:59 Dose: 2 mg Admin: 05/07/19 12:19 Dose: 2 mg Cyproheptadine Hcl (4mg *Pom*) 1 tab PO BEDTIME [facility] Last Admin: 05/08/19 21:45 Dose: 2 tab Admin: 05/07/19 20:11 Dose: 1 tab Olanzapine (Zyprexa) 20 mg PO BEDTIME [facility] Last Admin: 05/08/19 21:46 Dose: 20 mg Admin: 05/07/19 20:12 Dose: 20 mg Ondansetron HCl (Zofran Odt) 4 mg PO Q6H PRN PRN Reason: Nausea/Vomiting Oxycodone/Acetaminophen (Percocet 325-5 Mg) 0 tab PO Q4H PRN PRN Reason: Pain (moderate 4-6) Last Admin: 05/09/19 10:07 Dose: 2 tab Admin: 05/09/19 05:52 Dose: 2 tab Admin: 05/09/19 01:34 Dose: 2 tab Admin: 05/08/19 19:53 Dose: 2 tab Admin: 05/08/19 15:42 Dose: 2 tab Admin: 05/08/19 10:12 Dose: 2 tab Admin: 05/08/19 03:49 Dose: 2 tab Admin: 05/07/19 23:38 Dose: 2 tab Admin: 05/07/19 12:50 Dose: 2 tab Pantoprazole Sodium (Protonix) 40 mg PO ACBREAKFAST [facility] Last Admin: 05/09/19 08:05 Dose: 40 mg Admin: 05/08/19 07:57 Dose: 40 mg - Assessment Assessment (Free Text/Narrative):: Tolerated surgery without complication, was up out of bed yesterday, doing better today with transfers but not independent, no swelling in operative lower leg, tolerating po meds - Plan Plan (Free Text/Narrative):: Continue current care, saline iv, continue PT. With current progress anticipate discharge to home tomorrow
--- NOTE | 2019-05-09 10:31 | PCM.DCSUM1 ---
Discharge Summary - Hospital Course Free Text/Narrative:: 33 year old with history of hip dysplasia underwent right total hip approx 2 years ago. Has had persistent pain which can be debilitating. Admitted for revision of right acetabular cup. Diagnosis: Stroke: No Modified Glades Scale: No Symptoms at All Modified Glades Scale Score: 0 - Discharge Data Discharge Date: 05/09/19 Discharge Disposition: Home, Self-Care 01 Condition: Good - Referral to Home Health Date of Face to Face Encounter: 05/09/19 Primary Care Physician: PCP None - Discharge Diagnosis/Problem(s) (1) S/P revision of total hip SNOMED Code(s): 819101950, [id number], [id number], 370622132 ICD Code: Z96.649 - PRESENCE OF UNSPECIFIED ARTIFICIAL HIP JOINT Status: Acute Current Visit: Yes (2) Aseptic loosening of prosthetic hip SNOMED Code(s): 697689315 ICD Code: T84.038A - MECHANICAL LOOSENING OF OTH INTERNAL PROSTHETIC JOINT, INIT; Z96.649 - PRESENCE OF UNSPECIFIED ARTIFICIAL HIP JOINT Status: Acute Current Visit: No Qualifiers: Encounter type: sequela Qualified Code(s): T84.038S - Mechanical loosening of other internal prosthetic joint, sequela; Z96.649 - Presence of unspecified artificial hip joint (3) Heterotopic calcification, postoperative SNOMED Code(s): 77384241 ICD Code: M96.89 - OTH INTRAOP AND POSTPROC COMP AND DISORDERS OF THE MS SYS ; M61.40 - OTHER CALCIFICATION OF MUSCLE, UNSPECIFIED SITE Status: Acute Current Visit: No (4) S/P total hip arthroplasty SNOMED Code(s): 293316777797, 195863258055 ICD Code: Z96.649 - PRESENCE OF UNSPECIFIED ARTIFICIAL HIP JOINT Status: Acute Current Visit: No Qualifiers: Laterality: right - Patient Summary/Data Operative Procedure(s) Performed: Revision of right hip acetabular cup and exchange of femoral head Consults: Consultations 05/07/19 10:19 Consult to Case Management/Meal Attendant [CONS] Routine Comment: Physician Instructions: Discharge placement post hip surgery Service(s) to be Consulted: Case Management PT Evaluation and Treatment [CONS] Routine Please Evaluate and Treat. PT Reason for Consult: Ambulation Discharge Disposition: Home w Home Health Special Instructions: posterior hip precautions, WBAT This query below is only for informational purposes and is not editable. PT Evaluation and Treatment [CONS] Routine Please Evaluate and Treat. PT Reason for Consult: Post op Ortho Surgery Hip Pending Discharge: Yes, 2- -3 days Special Instructions: Schedule first outpatient P.T. appointment 3 - 5 days post discharge This query below is only for informational purposes and is not editable. 05/07/19 10:26 OT Evaluation and Treatment [CONS] Routine Please Evaluate and Treat. OT Reason for Consult: ADL's Special Instructions: Status post Hip Surgery This query below is only for informational purposes and is not editable. Hospital Course: Underwent revision without a problem. Was up and tolerating PT well by POD#1 but needed a little work on transfers in and out of bed and chairs. Progressed well with PT. Dressing removed and incision looks great. Plan home today, ASA a day for DVT prophylaxis. Follow up in 2 weeks. - Patient Instructions Diet: Usual Diet as Tolerated Activity: As Tolerated Activity, Other: posterior hip precations Driving: Do Not Drive Showering/Bathing: May Shower Wound/Incision Care: Keep Operative Site/Wound Site Clean and Dry Notify Provider of: Fever, Increased Pain, Swelling and Redness, Drainage, Nausea and/or Vomiting Other/Special Instructions: Aspirin 325 mg daily - Discharge Plan *PRESCRIPTION DRUG MONITORING PROGRAM REVIEWED*: No *COPY OF PRESCRIPTION DRUG MONITORING REPORT IN PATIENT SAVANNA: No Prescriptions/Med Rec: oxyCODONE HCl/Acetaminophen [Percocet 5-325 mg Tablet] 2 each PO Q6HR PRN #50 tablet PRN Reason: Pain Home Medications: Home Meds OLANZapine [Olanzapine] 20 mg PO BEDTIME 05/03/17 [History] Dextroamphetamine/Amphetamine [Adderall 20 mg Tablet] 15 mg PO ASDIRECTED [History] Gabapentin [Neurontin] 600 mg PO QID 08/24/18 [History] Omeprazole 40 mg PO ACBREAKFAST 08/24/18 [History] lamoTRIgine [Lamictal] 350 mg PO DAILY 08/24/18 [History] Albuterol [Ventolin HFA] 1 puff INH QID PRN 09/28/18 [History] carBAMazepine [Carbamazepine] 2 tab PO BEDTIME 09/28/18 [History] ALPRAZolam [Alprazolam] 1 tab PO QID 11/07/18 [History] Cyproheptadine HCl 1 - 2 tab PO BEDTIME 11/07/18 [History] busPIRone [Buspar] 10 mg PO TID 05/07/19 [History] oxyCODONE HCl/Acetaminophen [Percocet 5-325 mg Tablet] 2 each PO Q6HR PRN #50 tablet 05/09/19 [Rx] Oxygen Therapy Mode: Room Air Referrals: Pio Morris MD [Physician] - 05/22/19 11:15 am (Please arrive 15 minutes early to register for your appointment.) - Discharge Summary/Plan Comment DC Time >30 min.: No - General Info Functional Status: Reports: Pain Controlled, Tolerating Diet, Ambulating, Urinating - Review of Systems General: Reports: No Symptoms HEENT: Reports: No Symptoms Pulmonary: Reports: No Symptoms Cardiovascular: Reports: No Symptoms Gastrointestinal: Reports: No Symptoms Genitourinary: Reports: No Symptoms Musculoskeletal: Reports: Leg Pain Skin: Reports: No Symptoms Neurological: Reports: No Symptoms Psychiatric: Reports: No Symptoms - Patient Data Vitals - Most Recent: Last Vital Signs Temp 36.8 C 05/09/19 08:53 Pulse 111 H 05/09/19 08:53 Resp 16 05/09/19 08:53 BP 118/72 05/09/19 08:53 Pulse Ox 96 05/09/19 08:53 Weight - Most Recent: 69.264 kg I&O - Last 24 hours: Intake & Output 05/08/19 05/09/19 05/09/19 22:59 06:59 14:59 Intake Total 480 Output Total 900 500 Balance -420 -500 YOCASTA Results - Last 24 hrs: Microbiology 05/07/19 08:23 Anaerobic Culture - Preliminary Hip, Right NO GROWTH AFTER 2 DAYS 05/07/19 08:23 Gram Stain - Final Hip, Right Wound Culture - Preliminary NO GROWTH AFTER 2 DAYS Med Orders - Current: Current Medications Acetaminophen (Tylenol) 650 mg PO Q4H PRN PRN Reason: Pain/Fever Hydrocodone Bitart/Acetaminophen ([place] 325-5 Mg) 2 tab PO Q3H PRN PRN Reason: Pain (mild 1-3) Last Admin: 05/08/19 18:02 Dose: 1 tab Albuterol (Ventolin Hfa) 0 gm INH QID PRN PRN Reason: Wheezing Alprazolam (Xanax) 1 mg PO QID [facility] Last Admin: 05/09/19 05:45 Dose: 1 mg Amphetamine/Dextroamphetamine (Adderall) 15 mg PO 0700,1000,1300,1600 [facility] Last Admin: 05/09/19 08:05 Dose: 15 mg Bandage/Support Products ( Nasal Web Architect) 1 applic NASBOTH BID [facility] Stop: 05/14/19 21:01 Last Admin: 05/09/19 08:07 Dose: 1 dose Buspirone HCl (Buspar) 10 mg PO TID [facility] Last Admin: 05/09/19 08:05 Dose: 10 mg Calcium Carbonate/Glycine (Tums) 1,000 mg PO Q2H PRN PRN Reason: Indigestion Last Admin: 05/07/19 18:17 Dose: 1,000 mg Carbamazepine (Tegretol Tab) 400 mg PO BEDTIME [facility] Last Admin: 05/08/19 21:45 Dose: 400 mg Docusate Sodium (Colace) 100 mg PO BID [facility] Last Admin: 05/09/19 08:05 Dose: 100 mg Gabapentin (Neurontin) 600 mg PO QID [facility] Last Admin: 05/09/19 05:45 Dose: 600 mg Sodium Chloride (Normal Saline) 1,000 mls @ 125 mls/hr IV ASDIRECTED [facility] Last Admin: 05/07/19 19:47 Dose: 125 mls/hr Lamotrigine 300 mg/ (Lamotrigine 50 mg) 350 mg PO DAILY [facility] Last Admin: 05/09/19 08:05 Dose: 350 mg Magnesium Hydroxide (Milk Of Magnesia) 30 ml PO Q6H PRN PRN Reason: Stool Softener Morphine Sulfate (Morphine) 2 mg IVPUSH Q1H PRN PRN Reason: Breakthrough Pain Last Admin: 05/07/19 21:53 Dose: 2 mg Cyproheptadine Hcl (4mg *Pom*) 1 tab PO BEDTIME [facility] Last Admin: 05/08/19 21:45 Dose: 2 tab Olanzapine (Zyprexa) 20 mg PO BEDTIME [facility] Last Admin: 05/08/19 21:46 Dose: 20 mg Ondansetron HCl (Zofran Odt) 4 mg PO Q6H PRN PRN Reason: Nausea/Vomiting Oxycodone/Acetaminophen (Percocet 325-5 Mg) 0 tab PO Q4H PRN PRN Reason: Pain (moderate 4-6) Last Admin: 05/09/19 10:07 Dose: 2 tab Pantoprazole Sodium (Protonix) 40 mg PO ACBREAKFAST [facility] Last Admin: 05/09/19 08:05 Dose: 40 mg Discontinued Medications Bandage/Support Products ( Nasal Web Architect) 1 applic NASBOTH BID [facility] Last Admin: 05/07/19 06:12 Dose: 1 applic Buspirone HCl (Buspar) 10 mg PO TID [facility] Carbamazepine (Tegretol Tab) 400 mg PO BEDTIME [facility] Docusate Sodium (Colace) 100 mg PO BID [facility] Fentanyl (Sublimaze) Confirm Administered Dose 100 mcg .ROUTE .STK-MED ONE Stop: 05/07/19 07:28 Fentanyl (Sublimaze) Confirm Administered Dose 100 mcg .ROUTE .STK-MED ONE Stop: 05/07/19 09:30 Gabapentin (Neurontin) 600 mg PO QID [facility] Cefazolin Sodium/Dextrose 2 gm (/ Premix) 50 mls @ 100 mls/hr IV ONETIME ONE Stop: 05/07/19 07:13 Last Admin: 05/07/19 08:29 Dose: 100 mls/hr Lactated Ringer's (Ringers, Lactated) 1,000 mls @ 75 mls/hr IV ASDIRECTED [facility] Last Admin: 05/07/19 06:11 Dose: 75 mls/hr Tranexamic Acid 710 mg/ Sodium (Chloride) 57.1 mls @ 228.4 mls/hr IV ONETIME ONE Stop: 05/07/19 07:59 Last Admin: 05/07/19 12:22 Dose: 228.4 mls/hr Tranexamic Acid 710 mg/ Sodium (Chloride) 57.1 mls @ 228.4 mls/hr IV ONETIME PRN PRN Reason: 2ND DOSE IF PROVIDER REQUESTS Last Admin: 05/07/19 08:29 Dose: 228.4 mls/hr Lactated Ringer's (Ringers, Lactated) Confirm Administered Dose 1,000 mls @ as directed .ROUTE .STK-MED ONE Stop: 05/07/19 08:44 Cefazolin Sodium/Dextrose 1 gm (/ Premix) 50 mls @ 200 mls/hr IV Q8H [facility] Stop: 05/08/19 06:14 Last Admin: 05/08/19 05:34 Dose: 200 mls/hr Lamotrigine (Lamotrigine) 350 mg PO DAILY [facility] Lamotrigine (Lamotrigine) 350 mg PO DAILY [facility] Magnesium Hydroxide (Milk Of Magnesia) 30 ml PO Q6H PRN PRN Reason: Stool Softener Midazolam HCl (Versed 1 Mg/Ml) Confirm Administered Dose 2 mg .ROUTE .STK-MED ONE Stop: 05/07/19 07:28 Midazolam HCl (Versed 1 Mg/Ml) Confirm Administered Dose 2 mg .ROUTE .STK-MED ONE Stop: 05/07/19 08:00 Morphine Sulfate (Morphine) 2 mg IVPUSH Q1H PRN PRN Reason: Breakthrough Pain Non-Formulary Medication (Alprazolam [Alprazolam]) 1 tab PO QID [facility] Non-Formulary Medication (Cyproheptadine Hcl [Cyproheptadine Hcl]) 1 tab PO BEDTIME [facility] Non-Formulary Medication (Dextroamphetamine/Amphetamine [Adderall 20 Mg Tablet] ) 15 mg PO ASDIRECTED [facility] Non-Formulary Medication (Olanzapine [Olanzapine]) 20 mg PO BEDTIME [facility] Non-Formulary Medication (Omeprazole [Omeprazole]) 40 mg PO ACBREAKFAST [facility] Non-Formulary Medication (Dextroamphetamine/Amphetamine [Adderall 20 Mg Tablet] ) 15 mg PO ASDIRECTED [facility] Ondansetron HCl (Zofran Odt) 4 mg PO Q6H PRN PRN Reason: Nausea/Vomiting Povidone Iodine (Betadine 10% Soln) Confirm Administered Dose 1 ml .ROUTE .STK- MED ONE Stop: 05/07/19 06:40 Last Admin: 05/07/19 09:50 Dose: 25 ml Propofol (Diprivan 20 Ml) Confirm Administered Dose 200 mg .ROUTE .STK-MED ONE Stop: 05/07/19 07:29 Propofol (Diprivan 20 Ml) Confirm Administered Dose 200 mg .ROUTE .STK-MED ONE Stop: 05/07/19 08:10 Propofol (Diprivan 20 Ml) Confirm Administered Dose 200 mg .ROUTE .STK-MED ONE Stop: 05/07/19 08:36 Propofol (Diprivan 20 Ml) Confirm Administered Dose 200 mg .ROUTE .STK-MED ONE Stop: 05/07/19 09:04 Propofol (Diprivan 20 Ml) Confirm Administered Dose 200 mg .ROUTE .STK-MED ONE Stop: 05/07/19 09:35 - Exam HEENT: Reports: Pupils Equal, Pupils Reactive, EOMI, Mucous Membr. Moist/[place] Neck: Reports: Supple Lungs: Reports: Clear to Auscultation, Normal Respiratory Effort Cardiovascular: Reports: Regular Rate, Regular Rhythm GI/Abdominal Exam: Normal Bowel Sounds, Soft, Non-Tender, No Distention (Female) Exam: Deferred Rectal (Female) Exam: Deferred Back Exam: Reports: Normal Inspection Extremities: Limited Range of Motion Skin: Reports: Warm, Dry Wound/Incisions: Reports: Healing Well, No Drainage Neurological: Reports: No New Focal Deficit Psy/Mental Status: Reports: Alert, Normal Affect, Normal Mood
--- NOTE | 2019-05-09 14:42 | OR ---
DATE OF PROCEDURE: 05/07/2019 SURGEON: Pio Morris MD PREOPERATIVE DIAGNOSES: 1. Aseptic loosening, acetabular component, right hip. 2. Mild heterotopic ossification, right hip. POSTOPERATIVE DIAGNOSES: 1. Aseptic loosening, acetabular component, right hip. 2. Mild heterotopic ossification, right hip. 3. Synovitis, right hip. PROCEDURES: 1. Revision of acetabular component, right total hip. 2. Synovectomy, right hip. 3. Exchange of femoral head of the femoral component. ANESTHESIA: Spinal with sedation. INDICATION: Roslyn is a 33-year-old female who underwent a right total hip arthroplasty at another facility approximately 2 years ago due to degenerative changes from hip dysplasia. She has had persistent and progressive pain over the last year. Workup has included x-rays and bone scan as well as injection. It is my opinion that she has aseptic loosening of the right total hip acetabular component or at most, a very small area of bony ingrowth resulting in persistent pain. She now presents for revision of the right acetabular cup. Risks, benefits, and potential complications of the procedure were discussed. DESCRIPTION OF PROCEDURE: After adequate anesthesia was obtained, the patient was placed in a lateral decubitus position and secured with the hip positioner. The right hip was then prepped and draped in a sterile fashion. Previous incision was utilized and extended slightly proximally and distally. This was carried through the subcutaneous tissues with electrocautery. Tensor fascia was then divided in line with its fibers and a Charnley retractor was placed. Moderate amount of scarring was present between the tensor fascia and the greater trochanter, which was freed up, allowing placement of the retractor. Dissection was then carried out along the posterior aspect of the greater trochanter. Previously placed sutures were identified, cut and removed. Dissection was then carried down to the hip capsule. More fluid was noted than was typical with total hip arthroplasty. Did not appear cloudy or purulent. Cultures were taken and sent for evaluation. On further dissection of the capsule off the acetabular cup and neck of the femur, a hypertrophic mass of synovium was noted at the head-neck junction. This was fairly proliferative and frondlike. It was a potential source of impingement in the dual mobility cup. This was excised. Dissection was then carried out further around the acetabular cup allowing visualization around the rim. The femoral head was dislocated from the cup and the dual mobility portion of the head was removed from the stem. Attention was then turned to removing the metal liner from the cup. Using a combination of osteotomes and chisel device, the edge of the liner was from the cup to allow gripping this with a large needle otr tanker truck driver. While placing traction on this, the edge of the cup was struck with a bone tamp, loosening the liner after several attempts. Acetabular screw was identified, and this was removed. Leone elevator was used to place pressure against the edge of the acetabular liner and the interface between the cup and the underlying acetabular bone was evaluated and a small amount of motion was identified. A trial liner was placed inside the cup and a size 50 small-blade explant instrument was utilized first. There was fairly significant soft tissue ingrowth around the prosthesis, particularly superior and lateral, where it overhung the acetabulum somewhat. This had to be cleared with a combination of electrocautery and a Leone elevator. A small blade was then worked around the cup. Once this had been accomplished, the longer blade was utilized. It should be noted that this advanced up around the superior and lateral aspects of the cup without difficulty. Progress was impeded actually more by soft tissue ingrowth medially and anterior, than by apparent bony ingrowth. Once the explant device could be moved circumferentially around the cup, the edge of the cup was struck with a bone tamp and it from the acetabulum without significant difficulty. A Leone elevator was then used to further strip soft tissues. The cup was evaluated and showed a small area of bony ingrowth around the screw hole that was utilized in an area approximately the size of a postage stamp or slightly larger. No other bony ingrowth was noted. Evaluation of the acetabulum revealed a layer of soft tissue, particularly in a small recess more medially, and this area was approximately 2 mm thick. Good bone was present superior, posterior, and inferior. Medial wall was quite thin. Using a combination of Leone elevator, curette, and a Bovie electrocautery , all the soft tissue was removed from the acetabulum and the rim. With the retractors appropriately placed, the acetabulum was then reamed beginning with a 48-mm reamer and working up to 53 mm. Bleeding bone was accomplished around the periphery. The very central portion of the medial wall had just a very thin layer of bone present. The defect, which was mentioned above, more medial and inferior, was still present. It was felt that trying to ream up to an additional size to completely incorporate this, would risk penetrating the medial wall. Acetabulum was irrigated. The area of defect medially was then roughened with a curette. A trial cup was placed and good bony contact was noted on approximately 75% of the cup. The trial was removed. Reamings from the acetabulum were then utilized as bone graft, and these were packed into the acetabulum, particularly in the medial defect. The cup was then tapped into position with good press-fit of a 54-mm cup. Additional fixation was obtained with 3 acetabular screws, all of which had excellent purchase. Standard liner was then impacted into place. Hip was then reduced with the trial heads with a +7 mm neck length appearing to recreate limb length. It was possible that this was just a couple of millimeters longer than she had, but certainly was not excessively lengthened. It showed excellent stability in flexion, adduction, and internal rotation easily to 45 degrees and beyond. Hip was then irrigated and trial was removed. A ceramic 36 mm diameter head with a +7 neck length was tapped onto the trunnion, and the hip was reduced. It was taken through range of motion, again found to be stable and had full extension and apparent recreation of limb length. It was irrigated once again including dilute solution of Betadine, which was left in place for 2.5 minutes. This was irrigated a final time, and the tensor fascia and fascia nick were then closed in a running fashion with #2 Ethibond. The skin was closed with 2-0 Vicryl and a running 3-0 Monocryl, taking care to reapproximate the lines of the patient's tattoo on the right hip. Steri-Strips were then placed and a sterile dressing was applied. The patient tolerated the procedure well. There were no complications. She was taken from the operating room in stable condition. iPo Morris MD /[id number] RADHA
== END 2019-05-09 11:55 | disposition home or self-care (01) | DRG 467 ==
LOC: JP.SDSSCHI 05:50 → JP.SDS 05:50 → EDSTATUS 07:30 → JP.MS 10:19
PROVIDERS: ADMIT Specialist; ATTEND Specialist
PROC: 0SRR0JZ Replacement of Right Hip Joint, Femoral Surface with Synthetic Substitute, Open Approach (ICD-10-PCS; principal; 2019-05-07)
PROC: 0SPR0JZ Removal of Synthetic Substitute from Right Hip Joint, Femoral Surface, Open Approach (ICD-10-PCS; 2019-05-07)
PROC: 0SB90ZZ Excision of Right Hip Joint, Open Approach (ICD-10-PCS; 2019-05-07)
DX: T84.038A Mechanical loosening of other internal prosthetic joint, initial encounter (principal); M96.89 Other intraoperative and postprocedural complications and disorders of the musculoskeletal system; G40.909 Epilepsy, unspecified, not intractable, without status epilepticus; F17.200 Nicotine dependence, unspecified, uncomplicated; G89.29 Other chronic pain; M54.5 Low back pain; F43.10 Post-traumatic stress disorder, unspecified; I10 Essential (primary) hypertension; M65.9 Synovitis and tenosynovitis, unspecified; F41.8 Other specified anxiety disorders; F90.9 Attention-deficit hyperactivity disorder, unspecified type; Z85.41 Personal history of malignant neoplasm of cervix uteri; Z79.899 Other long term (current) drug therapy
CPT/HCPCS: 36415; 73501-26-RT; 73501-RT; 80053; 81025; 85027; 86850; 86900; 86901; 87070; 87075; 87205; 97110-GP; 97162-GP; 97165-GO; 97530-GP; A9270-GY; C1713; C1776; J0690; J2250; J2270; J2704; J3010; J7030; J7050; J7120

== ENCOUNTER 2019-06-29 12:47 | Emergency (ER) | payer MEDICAID ==
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
[2019-06-29] MEDS ORDERED: LORazepam 1 MG Tab PO ONE (13:38)
[2019-06-29] MEDS ORDERED: oxyCODONE 5 MG Tab PO ONE (14:06)
[2019-06-29] MEDS ORDERED: Lidocaine/EPINEPHrine/Tetracaine Soln 5 ML Each TOP ONE (14:31)
== END 2019-06-29 15:19 | disposition home or self-care (01) ==
LOC: JP.ED 12:47
DX: G40.409 Other generalized epilepsy and epileptic syndromes, not intractable, without status epilepticus (principal); S01.21XA Laceration without foreign body of nose, initial encounter; I10 Essential (primary) hypertension; J45.909 Unspecified asthma, uncomplicated; K21.9 Gastro-esophageal reflux disease without esophagitis; F41.9 Anxiety disorder, unspecified; F31.9 Bipolar disorder, unspecified; F17.210 Nicotine dependence, cigarettes, uncomplicated; Z79.899 Other long term (current) drug therapy; W19.XXXA Unspecified fall, initial encounter
CPT/HCPCS: 12011; 99283; A9270

== ENCOUNTER 2019-07-18 14:23 | Emergency (ER) | payer MEDICAID ==
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
--- NOTE | 2019-07-18 16:08 | CRLCT ---
INDICATION: Concussion TECHNIQUE: CT Head without contrast. COMPARISON: MR brain 06/18/2019. CT 12/05/2018 FINDINGS: CSF spaces: Within normal limits for age. No hydrocephalus. Brain parenchyma: The valencia-white differentiation is normal. No sign of mass, hemorrhage, or midline shift. No extra-axial fluid collection. Skull base and calvarium: No skull fracture. Moderate mucosal thickening with patchy opacification of the left ethmoid air cells. The remainder of the visualized paranasal sinuses and mastoid air cells are clear. IMPRESSION: No acute intracranial abnormality. Dictated by Nikhil Ha MD @ 07/18/2019 4:06:45 PM Please note that all CT scans at this facility use dose modulation, iterative reconstruction, and/or weight-based dosing when appropriate to reduce radiation dose to as low as reasonably achievable. Dictated by: Nikhil Ha MD @ 07/18/2019 16:06:54 (Electronically Signed)
== END 2019-07-18 16:30 | disposition home or self-care (01) ==
LOC: JP.ED 14:23
DX: S06.0X9A Concussion with loss of consciousness of unspecified duration, initial encounter (principal); I10 Essential (primary) hypertension; J45.909 Unspecified asthma, uncomplicated; K21.9 Gastro-esophageal reflux disease without esophagitis; F31.9 Bipolar disorder, unspecified; F17.210 Nicotine dependence, cigarettes, uncomplicated; W22.8XXA Striking against or struck by other objects, initial encounter
CPT/HCPCS: 70450; 99284-25

== ENCOUNTER 2019-08-13 08:46 | Day surgery (SDC) | payer MEDICAID ==
[~2019-08-13 08:46] MED LIST changes: -Lactated Ringers 1,000 ML IV SCH; +Povidone-Iodine 10% Soln 118.25 ML Bottle ONE
[2019-08-13] MEDS ORDERED: Propofol 200 MG/20 ML SDV ONE ×2 (09:10→13:02)
[2019-08-13] MEDS ORDERED: Glycopyrrolate 0.2 MG/ML 5 ML MDV ONE (09:10)
[2019-08-13] MEDS ORDERED: Ondansetron 4 MG/2 ML SDV ONE (09:10)
[2019-08-13] MEDS ORDERED: Rocuronium 50 MG/5 ML Vial ONE (09:10)
[2019-08-13] MEDS ORDERED: Dexamethasone 4 MG/ML SDV ONE (09:10)
[2019-08-13] MEDS ORDERED: Neostigmine Methylsulfate 1 MG/ML 5 ML Syringe ONE (09:10)
[2019-08-13] MEDS ORDERED: fentaNYL 250 MCG/5 ML SDV ONE (09:12)
[2019-08-13] MEDS ORDERED: Lactated Ringers 1,000 ML IV SCH (09:15)
[2019-08-13] MEDS ORDERED: Nozin Nasal Sanitizer NASBOTH ONE (09:30)
[2019-08-13] MEDS ORDERED: ceFAZolin 2 GM in Premix Bag 1 BAG IV ONE (10:00)
[2019-08-13] MEDS ORDERED: Midazolam 1 MG/ML 2 ML SDV ONE ×2 (10:34→13:05)
[2019-08-13] MEDS: Bupivacaine 0.5% 30 ML SDV ONE ×2 (13:44→13:46)
[2019-08-13] MEDS ORDERED: Morphine 2 MG/ML SYRINGE IV PRN (13:57)
[2019-08-13] MEDS ORDERED: Acetaminophen 325 MG Tab PO PRN (13:57)
[2019-08-13] MEDS ORDERED: Magnesium Hydroxide 400 MG/5 ML Susp 30 ML Cup PO PRN (13:57)
[2019-08-13] MEDS ORDERED: Ondansetron 4 MG Tab.DIS PO PRN (13:57)
[2019-08-13] MEDS ORDERED: Albuterol 8 GM Inhaler INH PRN (14:06)
[2019-08-13] MEDS ORDERED: Fluticasone-Salmeterol 55-14 MCG Powder Inhalent INH PRN (14:38)
[2019-08-13] MEDS: Gabapentin 300 MG Cap PO SCH ×2 (15:33→21:13)
[2019-08-13] MEDS: Amphetamine/Dextroamphetamine Salts 10 MG Tab PO SCH ×2 (15:33→17:53)
[2019-08-13] MEDS: ALPRAZolam 0.5 MG Tab PO SCH ×2 (15:34→21:13)
[2019-08-13] MEDS: Ketorolac 30 MG/ML SDV IVPUSH SCH ×2 (15:34→21:15)
[2019-08-13] MEDS: Sodium Chloride 0.9% 1,000 ML IV SCH (16:06)
[2019-08-13] MEDS: ceFAZolin 1 GM in Premix Bag 1 BAG IV SCH (20:11)
[2019-08-13] MEDS: busPIRone 10 MG Tab PO SCH (20:16)
[2019-08-13] MEDS ORDERED: OLANZapine 5 MG Tab PO SCH (21:00)
[2019-08-13] MEDS ORDERED: CYPROHEPTADINE 4 MG PO SCH (21:00)
[2019-08-13] MEDS ORDERED: carBAMazepine 200 MG Tab PO SCH (21:00)
[2019-08-13] MEDS: Acetaminophen/HYDROcodone 325-7.5 MG Tab PO PRN (21:13)
[2019-08-14] MEDS: Sodium Chloride 0.9% 1,000 ML IV SCH (00:54)
[2019-08-14] MEDS: Nozin Nasal Sanitizer NASBOTH SCH ×2 (03:18→08:52)
[2019-08-14] MEDS: Ketorolac 30 MG/ML SDV IVPUSH SCH ×2 (03:26→10:27)
[2019-08-14] MEDS: ceFAZolin 1 GM in Premix Bag 1 BAG IV SCH (03:34)
[2019-08-14] MEDS: ALPRAZolam 0.5 MG Tab PO SCH (05:38)
[2019-08-14] MEDS: Gabapentin 300 MG Cap PO SCH ×2 (05:38→10:23)
[2019-08-14] MEDS ORDERED: Pantoprazole 40 MG Tab.CR PO SCH (07:30)
[2019-08-14] MEDS: Amphetamine/Dextroamphetamine Salts 10 MG Tab PO SCH (08:51)
[2019-08-14] MEDS: busPIRone 10 MG Tab PO SCH (08:52)
[2019-08-14] MEDS ORDERED: Docusate Sodium 100 MG Cap PO SCH (09:00)
[2019-08-14] MEDS: Acetaminophen/HYDROcodone 325-7.5 MG Tab PO PRN (10:23)
--- NOTE | 2019-09-01 08:07 | OR ---
DATE OF PROCEDURE: 08/13/2019 SURGEON: Pio Morris MD PREOPERATIVE DIAGNOSIS: Suspected rupture of iliotibial band from previous revision total hip arthroplasty. POSTOPERATIVE DIAGNOSIS: Adhesions of iliotibial band and tensor fascia to greater trochanter and vastus lateralis, right hip. PROCEDURE: Release of adhesions, iliotibial band and tensor fascia, right hip, with repair of tensor fascia and iliotibial band. ANESTHESIA: General. INDICATIONS: Roslyn is a 33-year-old female who had previously undergone a right total hip arthroplasty and unfortunately had aseptic loosening of the acetabular cup. She underwent revision of the cup a few months ago. She has sustained several falls due to a seizure disorder. She has been having increasing pain and popping over the lateral aspect of the right hip and becoming progressively more disabled by this. This is contributing to additional falls. Popping was suspected to be due to rupture of the suture line of the IT band and tensor fascia incision. She is therefore taken to the operating room for exploration of this and repair as needed. Risks, benefits, potential complications of procedure were discussed. DESCRIPTION OF PROCEDURE: After adequate anesthesia was obtained, the patient was placed in the lateral decubitus position and secured with a hip positioner. Right hip and leg were then prepped and draped in a sterile fashion. Leg was taken through range of motion in this position, and no definitive IT band snapping could be visualized or palpated. Her previous incision was utilized, carried down through the subcutaneous tissues, and hemostasis was obtained with electrocautery. Dissection was taken down carefully to the tensor fascia and IT band. This was actually found to be intact. A small incision was made along the suture line in order to explore just deep to this, and significant adhesions were noted between the tensor fascia, IT band, and the underlying greater trochanter, abductor muscles, and vastus lateralis. Incision was extended to allow further access to this. Using a combination of Bovie electrocautery and a Leone elevator, the plane between the tensor fascia and the abductors and the greater tuberosity was freed superiorly and between the IT band and the greater trochanter and the vastus lateralis distally. Once this was thoroughly mobilized, bleeding was controlled with electrocautery and the tensor fascia IT band was then repaired in a [id number] fashion with good tissue and solid repair. The skin was then closed with 2-0 Vicryl and a running 3-0 Monocryl, and Steri-Strips were applied. Wound was infiltrated with Marcaine prior to application of sterile dressing. The patient tolerated the procedure very well. There were no complications. Taken from the operating room in stable condition. Pio Morris MD /[id number] MTDD
== END 2019-08-14 11:28 | disposition home or self-care (01) ==
LOC: JP.SDS 08:46 → JP.MS 13:57 → JP.SDS 08-14 11:28
PROVIDERS: ATTEND Specialist
DX: M76.31 Iliotibial band syndrome, right leg (principal); I10 Essential (primary) hypertension; R29.6 Repeated falls; G40.909 Epilepsy, unspecified, not intractable, without status epilepticus; Z96.641 Presence of right artificial hip joint
CPT/HCPCS: 27305; 36415; 80053; 81025; 85027; A9270; J0690; J1885; J2250; J2704; J3010; J3490; J7030; J7120; 27025; 27299; J1100; J2405; J2710

== ENCOUNTER 2019-08-21 10:30 | Emergency (ER) | payer MEDICAID ==
[2019-08-21] MEDS ORDERED: Sodium Chloride 0.9% 1,000 ML IV SCH (10:45)
[2019-08-21] MEDS ORDERED: Metoprolol Succinate 25 MG Tab.ER PO ONE (10:51)
--- NOTE | 2019-08-21 10:54 | EDM.PDOC ---
ED HPI GENERAL MEDICAL PROBLEM - General Chief Complaint: Neurological Problem Stated Complaint: SEIZURES Time Seen by Provider: 08/21/19 10:53 Source of Information: Reports: Patient History Limitations: Reports: No Limitations - History of Present Illness INITIAL COMMENTS - FREE TEXT/NARRATIVE: pt arrived after she passed out in the waiting room at the clinic. When she was seen at the [facility] because of her issue she was cleatrly hyperventilating. Onset: Today, Sudden Duration: Hour(s):, Other (ppt is having possible puedoseizures and believes she has had 4 today. Each time there is hyperventilation connected top the episode. ) Location: Reports: Generalized Associated Symptoms: Reports: Shortness of Breath, Other (pt is hyperventilating. ) Bilateral Leg Pain Score (Numeric/FACES): 7 Chest Pain Score (Numeric/FACES): 10 - Related Data Allergies Allergy/AdvReac Type Severity Reaction Status Date / Time No Known Allergies Allergy Verified 08/13/19 09:13 Home Meds: Home Meds OLANZapine [Olanzapine] 20 mg PO BEDTIME 05/03/17 [History] Gabapentin [Neurontin] 600 mg PO QID 08/24/18 [History] Omeprazole 40 mg PO ACBREAKFAST 08/24/18 [History] lamoTRIgine [Lamictal] 350 mg PO DAILY 08/24/18 [History] carBAMazepine [Carbamazepine] 400 mg PO BEDTIME 09/28/18 [History] Cyproheptadine HCl 2 tab PO BEDTIME 11/07/18 [History] ALPRAZolam [Xanax] 1 mg PO QID 08/12/19 [History] Dextroamphetamine/Amphetamine [Adderall 20 mg Tablet] 15 mg PO QID 08/12/19 [History] busPIRone [Buspar] 10 mg PO TID 08/12/19 [History] Indomethacin [Indocin] 75 mg PO BID 30 Days #60 cap 08/14/19 [Rx] oxyCODONE HCl/Acetaminophen [Percocet 5-325 mg Tablet] 1 - 2 each PO Q4HR PRN #50 tablet 08/14/19 [Rx] Past Medical History HEENT History: Reports: Impaired Vision Cardiovascular History: Reports: Arrhythmia, Hypertension, Other (See Below) Other Cardiovascular History: "small heart", tachycardia Respiratory History: Reports: Asthma, Other (See Below) Other Respiratory History: chest tube for collapsed lung Gastrointestinal History: Reports: GERD Genitourinary History: Reports: None MEDICAL ADMINISTRATIVE ASSISTANT History: Reports: , Other (See Below) Other MEDICAL ADMINISTRATIVE ASSISTANT 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 Musculoskeletal History: Reports: Other (See Below) Other Musculoskeletal History: right hip pain Neurological History: Reports: Brain Injury, Concussion, Head Trauma, Migraines, Seizure Psychiatric History: Reports: Anxiety, Bipolar, Depression, PTSD Endocrine/Metabolic History: Reports: None Hematologic History: Reports: Blood Transfusion(s) Immunologic History: Reports: None Oncologic (Cancer) History: Reports: Cervix Dermatologic History: Reports: None - Infectious Disease History Infectious Disease History: Reports: Chicken Pox - Past Surgical History Head Surgeries/Procedures: Reports: None HEENT Surgical History: Reports: Myringotomy w Tube(s), Other (See Below) Other HEENT Surgeries/Procedures: has dentures Cardiovascular Surgical History: Reports: None Respiratory Surgical History: Reports: None GI Surgical History: Reports: Colon, Small Bowel, Other (See Below) Other GI Surgeries/Procedures: "bowel surgery after pole went through side", Female Surgical History: Reports: Section, Cervical Cryotherapy, Tubal Ligation Neurological Surgical History: Reports: None Musculoskeletal Surgical History: Reports: Hip Replacement Other Musculoskeletal Surgeries/Procedures:: right total hip revision 04/17/19 Oncologic Surgical History: Reports: None Social & Family History - Family History Family Medical History: Noncontributory - Caffeine Use Caffeine Use: Reports: Energy Drinks Caffeine Use Comment: 2 cups of coffee per day, 1 monster energy drink daily, a pepsi a day. - Living Situation & Occupation Living situation: Reports: ED ROS GENERAL - Review of Systems Review Of Systems: See Below Constitutional: Reports: Weakness HEENT: Reports: No Symptoms Respiratory: Reports: Shortness of Breath, Other (hyperventilating. ) Cardiovascular: Reports: No Symptoms Endocrine: Reports: No Symptoms GI/Abdominal: Reports: No Symptoms : Reports: No Symptoms Musculoskeletal: Reports: Other (pt is having significant pain in the legs. Her legs have been very swollen. ) Skin: Reports: No Symptoms ED EXAM, NEURO - Physical Exam Exam: See Below Text/Narrative:: pt arrived after passing out in the waiting room. On arrival the pt was clearly hyperventlating. Exam Limited By: No Limitations General Appearance: Alert, Anxious, Moderate Distress, Other (pupils are equal and reactive. ) Ears: Normal TMs Nose: Normal Inspection Throat/Mouth: Normal Inspection Head Exam: Atraumatic Neck: Normal Inspection Respiratory/Chest: Other (pt has a clear sounding chest. Pt is having periods of marked hyperventilation. ) Cardiovascular: Regular Rate, Rhythm, Tachycardia, Other (pt did see cardilogy and felt her rapid sinus rhythm was relaated to the adderal. ) GI/Abdominal: Soft, Non-Tender (Female) Exam: Deferred Rectal (Female) Exam: Deferred Neurological: Alert, Oriented x 3 Extremities: Pedal Edema Psychiatric: Anxious Course - Vital Signs Last Recorded V/S: Last Vital Signs Temp 37.2 C 08/21/19 10:40 Pulse 88 08/21/19 13:11 Resp 15 08/21/19 13:11 BP 125/81 08/21/19 13:11 Pulse Ox 99 08/21/19 13:11 Orthostatic Blood Pressure [ 125/82 Standing] Orthostatic Blood Pressure [ 142/98 Sitting] Orthostatic Blood Pressure [ 144/91 Supine] - Orders/Labs/Meds Orders: Active Orders 24 hr Category Date Time Status Orthostatic Vital Signs [RC] ASDIRECTED Care 08/21/19 11:00 Active GIOVANNA W/REFLEX Stat Lab 08/21/19 11:53 Received CARBAMAZEPINE(TEGRETOL),S Stat Lab 08/21/19 11:53 Received Sodium Chloride 0.9% [Normal Saline] 1,000 ml Med 08/21/19 10:45 Active IV ASDIRECTED Medication Orders Sodium Chloride (Normal Saline) 1,000 mls @ 150 mls/hr IV ASDIRECTED JAY Last Admin: 08/21/19 11:07 Dose: 150 mls/hr Documented by: PREILOR Labs: Laboratory Tests 08/21/19 08/21/19 08/21/19 Range/Units 10:43 10:43 10:43 WBC 8.3 (4.5-11.0) K/uL RBC 3.67 (3.30-5.50) M/uL Hgb 11.5 L (12.0-15.0) g/dL Hct 34.3 L (36.0-48.0) % MCV 94 (80-98) fL MCH 31 (27-31) pg MCHC 34 (32-36) % Plt Count 470 H (150-400) K/uL Neut % (Auto) 60 (36-66) % Lymph % (Auto) 29 (24-44) % Miller % (Auto) 9 H (2-6) % Eos % (Auto) 1 L (2-4) % Baso % (Auto) 1 (0-1) % Puncture Site ABG pH (7.350-7.450) ABG pCO2 (35.0-42.0) mmHg ABG pO2 (75.0-100.0) mmHg ABG HCO3 (22.0-26.0) mmol/L ABG Total CO2 (21.0-25.0) mmol/L ABG O2 Saturation (95.0-98.0) % ABG O2 Content (15.0-23.0) %vol ABG Base Excess mm/L ABG Hemoglobin (12.0-16.0) g/dL ABG Oxyhemoglobin % ABG Carboxyhemoglobin (0.0-1.6) % ABG Methemoglobin % Georgi Test O2 Delivery Device Sodium 134 L (140-148) mmol/L Potassium 4.1 (3.6-5.2) mmol/L Chloride 100 (100-108) mmol/L Carbon Dioxide 23 (21-32) mmol/L Anion Gap 15.1 H (5.0-14.0) mmol/L BUN 9 (7-18) mg/dL Creatinine 0.8 (0.6-1.0) mg/dL Est Cr Clr Drug Dosing 82.97 mL/min Estimated GFR (MDRD) > 60 (>60) Glucose 115 H (74-106) mg/dL Calcium 8.4 L (8.5-10.1) mg/dL Total Bilirubin 0.2 (0.2-1.0) mg/dL AST 16 (15-37) U/L ALT 19 (12-78) U/L Alkaline Phosphatase 118 H (46-116) U/L C-Reactive Protein 1.91 H (0.0-0.3) mg/dL NT-Pro-B Natriuret Pep 265 H (5-125) pg/mL Total Protein 6.3 L (6.4-8.2) g/dL Albumin 2.9 L (3.4-5.0) g/dL Globulin 3.4 (2.3-3.5) g/dL Albumin/Globulin Ratio 0.9 L (1.2-2.2) TSH, Ultra Sensitive (0.358-3.740) uIU/mL Urine Color (YELLOW) Urine Appearance (CLEAR) Urine pH (5.0-8.0) Ur Specific [place] (1.008-1.030) Urine Protein (NEGATIVE) mg/dL Urine Glucose (UA) (NEGATIVE) mg/dL Urine Ketones (NEGATIVE) mg/dL Urine Occult Blood (NEGATIVE) Urine Nitrite (NEGATIVE) Urine Bilirubin (NEGATIVE) Urine Urobilinogen (0.2-1.0) EU/dL Ur Leukocyte Esterase (NEGATIVE) Urine RBC (0-5) Urine WBC (0-5) Ur Epithelial Cells Amorphous Sediment Urine Bacteria Urine Mucus Urine Opiates Screen (NEGATIVE) Ur Oxycodone Screen (NEGATIVE) Urine Methadone Screen (NEGATIVE) Ur Propoxyphene Screen (NEGATIVE) Ur Barbiturates Screen (NEGATIVE) Ur Tricyclics Screen (NEGATIVE) Ur Phencyclidine Scrn (NEGATIVE) Ur Amphetamine Screen (NEGATIVE) U Methamphetamines Scrn (NEGATIVE) Urine MDMA Screen (NEGATIVE) U Benzodiazepines Scrn (NEGATIVE) U Cocaine Metab Screen (NEGATIVE) U Marijuana (THC) Screen (NEGATIVE) 08/21/19 08/21/19 08/21/19 Range/Units 10:45 10:48 11:35 WBC (4.5-11.0) K/uL RBC (3.30-5.50) M/uL Hgb (12.0-15.0) g/dL Hct (36.0-48.0) % MCV (80-98) fL MCH (27-31) pg MCHC (32-36) % Plt Count (150-400) K/uL Neut % (Auto) (36-66) % Lymph % (Auto) (24-44) % Miller % (Auto) (2-6) % Eos % (Auto) (2-4) % Baso % (Auto) (0-1) % Puncture Site Lt radial ABG pH 7.538 H (7.350-7.450) ABG pCO2 27.5 L (35.0-42.0) mmHg ABG pO2 56.5 L (75.0-100.0) mmHg ABG HCO3 23.3 (22.0-26.0) mmol/L ABG Total CO2 20.8 L (21.0-25.0) mmol/L ABG O2 Saturation 92.4 L (95.0-98.0) % ABG O2 Content 13.3 L (15.0-23.0) %vol ABG Base Excess 1.7 mm/L ABG Hemoglobin 11.4 L (12.0-16.0) g/dL ABG Oxyhemoglobin 83.3 % ABG Carboxyhemoglobin 8.7 H (0.0-1.6) % ABG Methemoglobin 1.2 % Georgi Test Pass O2 Delivery Device Room air Sodium (140-148) mmol/L Potassium (3.6-5.2) mmol/L Chloride (100-108) mmol/L Carbon Dioxide (21-32) mmol/L Anion Gap (5.0-14.0) mmol/L BUN (7-18) mg/dL Creatinine (0.6-1.0) mg/dL Est Cr Clr Drug Dosing mL/min Estimated GFR (MDRD) (>60) Glucose (74-106) mg/dL Calcium (8.5-10.1) mg/dL Total Bilirubin (0.2-1.0) mg/dL AST (15-37) U/L ALT (12-78) U/L Alkaline Phosphatase (46-116) U/L C-Reactive Protein (0.0-0.3) mg/dL NT-Pro-B Natriuret Pep (5-125) pg/mL Total Protein (6.4-8.2) g/dL Albumin (3.4-5.0) g/dL Globulin (2.3-3.5) g/dL Albumin/Globulin Ratio (1.2-2.2) TSH, Ultra Sensitive 2.809 (0.358-3.740) uIU/mL Urine Color Yellow (YELLOW) Urine Appearance Slightly cloudy A (CLEAR) Urine pH 7.5 (5.0-8.0) Ur Specific [place] 1.025 (1.008-1.030) Urine Protein Negative (NEGATIVE) mg/dL Urine Glucose (UA) Negative (NEGATIVE) mg/dL Urine Ketones Negative (NEGATIVE) mg/dL Urine Occult Blood Negative (NEGATIVE) Urine Nitrite Negative (NEGATIVE) Urine Bilirubin Negative (NEGATIVE) Urine Urobilinogen 0.2 (0.2-1.0) EU/dL Ur Leukocyte Esterase Negative (NEGATIVE) Urine RBC Not seen (0-5) Urine WBC 0-5 (0-5) Ur Epithelial Cells Rare Amorphous Sediment Rare Urine Bacteria Not seen Urine Mucus Not seen Urine Opiates Screen (NEGATIVE) Ur Oxycodone Screen (NEGATIVE) Urine Methadone Screen (NEGATIVE) Ur Propoxyphene Screen (NEGATIVE) Ur Barbiturates Screen (NEGATIVE) Ur Tricyclics Screen (NEGATIVE) Ur Phencyclidine Scrn (NEGATIVE) Ur Amphetamine Screen (NEGATIVE) U Methamphetamines Scrn (NEGATIVE) Urine MDMA Screen (NEGATIVE) U Benzodiazepines Scrn (NEGATIVE) U Cocaine Metab Screen (NEGATIVE) U Marijuana (THC) Screen (NEGATIVE) 08/21/19 Range/Units 11:35 WBC (4.5-11.0) K/uL RBC (3.30-5.50) M/uL Hgb (12.0-15.0) g/dL Hct (36.0-48.0) % MCV (80-98) fL MCH (27-31) pg MCHC (32-36) % Plt Count (150-400) K/uL Neut % (Auto) (36-66) % Lymph % (Auto) (24-44) % Miller % (Auto) (2-6) % Eos % (Auto) (2-4) % Baso % (Auto) (0-1) % Puncture Site ABG pH (7.350-7.450) ABG pCO2 (35.0-42.0) mmHg ABG pO2 (75.0-100.0) mmHg ABG HCO3 (22.0-26.0) mmol/L ABG Total CO2 (21.0-25.0) mmol/L ABG O2 Saturation (95.0-98.0) % ABG O2 Content (15.0-23.0) %vol ABG Base Excess mm/L ABG Hemoglobin (12.0-16.0) g/dL ABG Oxyhemoglobin % ABG Carboxyhemoglobin (0.0-1.6) % ABG Methemoglobin % Georgi Test O2 Delivery Device Sodium (140-148) mmol/L Potassium (3.6-5.2) mmol/L Chloride (100-108) mmol/L Carbon Dioxide (21-32) mmol/L Anion Gap (5.0-14.0) mmol/L BUN (7-18) mg/dL Creatinine (0.6-1.0) mg/dL Est Cr Clr Drug Dosing mL/min Estimated GFR (MDRD) (>60) Glucose (74-106) mg/dL Calcium (8.5-10.1) mg/dL Total Bilirubin (0.2-1.0) mg/dL AST (15-37) U/L ALT (12-78) U/L Alkaline Phosphatase (46-116) U/L C-Reactive Protein (0.0-0.3) mg/dL NT-Pro-B Natriuret Pep (5-125) pg/mL Total Protein (6.4-8.2) g/dL Albumin (3.4-5.0) g/dL Globulin (2.3-3.5) g/dL Albumin/Globulin Ratio (1.2-2.2) TSH, Ultra Sensitive (0.358-3.740) uIU/mL Urine Color (YELLOW) Urine Appearance (CLEAR) Urine pH (5.0-8.0) Ur Specific [place] (1.008-1.030) Urine Protein (NEGATIVE) mg/dL Urine Glucose (UA) (NEGATIVE) mg/dL Urine Ketones (NEGATIVE) mg/dL Urine Occult Blood (NEGATIVE) Urine Nitrite (NEGATIVE) Urine Bilirubin (NEGATIVE) Urine Urobilinogen (0.2-1.0) EU/dL Ur Leukocyte Esterase (NEGATIVE) Urine RBC (0-5) Urine WBC (0-5) Ur Epithelial Cells Amorphous Sediment Urine Bacteria Urine Mucus Urine Opiates Screen Negative (NEGATIVE) Ur Oxycodone Screen Presumptive positive H (NEGATIVE) Urine Methadone Screen Negative (NEGATIVE) Ur Propoxyphene Screen Negative (NEGATIVE) Ur Barbiturates Screen Negative (NEGATIVE) Ur Tricyclics Screen Negative (NEGATIVE) Ur Phencyclidine Scrn Negative (NEGATIVE) Ur Amphetamine Screen Presumptive positive H (NEGATIVE) U Methamphetamines Scrn Negative (NEGATIVE) Urine MDMA Screen Negative (NEGATIVE) U Benzodiazepines Scrn Presumptive positive H (NEGATIVE) U Cocaine Metab Screen Negative (NEGATIVE) U Marijuana (THC) Screen Negative (NEGATIVE) Meds: Medications Generic Name Dose Route Start Last Admin Trade Name Freq PRN Reason Stop Dose Admin Sodium Chloride 1,000 mls @ 150 mls/hr 08/21/19 10:45 08/21/19 11:07 Normal Saline IV 150 mls/hr ASDIRECTED JAY Administration Discontinued Medications Generic Name Dose Route Start Last Admin Trade Name Jacobo PRN Reason Stop Dose Admin Furosemide 40 mg 08/21/19 11:40 08/21/19 11:52 Lasix IVPUSH 08/21/19 11:41 40 mg ONETIME ONE Administration Ketorolac Tromethamine 30 mg 08/21/19 11:59 08/21/19 12:04 Toradol IVPUSH 08/21/19 12:00 30 mg ONETIME ONE Administration Lorazepam 0.5 mg 08/21/19 11:26 08/21/19 11:52 Ativan PO 08/21/19 11:27 0.5 mg ONETIME ONE Administration Metoprolol Succinate 25 mg 08/21/19 10:51 08/21/19 11:08 Toprol Xl PO 08/21/19 10:52 25 mg ONETIME ONE Administration - Re-Assessments/Exams Free Text/Narrative Re-Assessment/Exam: 08/21/19 14:00 pt was given lasix 40 mg iv and as he has put out about 1200 cc. She is feeling better. Her bereathing is better with the use of ativan .5. Pt has an up coming appt with [facility] for evaliuation. Departure - Departure Time of Disposition: 14:02 Disposition: Home, Self-Care 01 Condition: Fair Clinical Impression: Pedal edema, Hyperventilation - Discharge Information Referrals: PCP,None [Primary Care Provider] - Forms: ED Department Discharge Care Plan Goals: lasix 20 mg dialy for the next 6 days, use xanax regularly, continue other meds, keep appt at [facility]. Appt with regular Dr in 4-5 days. Sepsis Event Note (ED) - Evaluation Sepsis Screening Result: No Definite Risk - Focused Exam Vital Signs: Vital Signs Temp Pulse Pulse Resp BP BP Pulse Ox 08/21/19 13:11 88 15 125/81 99 08/21/19 12:41 88 19 133/90 97 08/21/19 12:11 88 20 137/95 H 96 08/21/19 11:22 105 H 28 H 125/82 93 L 08/21/19 11:08 99 136/93 H 08/21/19 10:40 37.2 C 124 H 21 H 138/99 H 18 L - My Orders Last 24 Hours: My Active Orders 08/21/19 10:45 Sodium Chloride 0.9% [Normal Saline] 1,000 ml IV ASDIRECTED 08/21/19 11:00 Orthostatic Vital Signs [RC] ASDIRECTED 08/21/19 11:53 GIOVANNA W/REFLEX Stat CARBAMAZEPINE(TEGRETOL),S Stat - Assessment/Plan Last 24 Hours: My Active Orders 08/21/19 10:45 Sodium Chloride 0.9% [Normal Saline] 1,000 ml IV ASDIRECTED 08/21/19 11:00 Orthostatic Vital Signs [RC] ASDIRECTED 08/21/19 11:53 GIOVANNA W/REFLEX Stat CARBAMAZEPINE(TEGRETOL),S Stat
[2019-08-21] MEDS ORDERED: LORazepam 0.5 MG Tab PO ONE (11:26)
[2019-08-21] MEDS ORDERED: Furosemide 40 MG/4 ML VIAL IVPUSH ONE (11:40)
[2019-08-21] MEDS ORDERED: Ketorolac 30 MG/ML SDV IVPUSH ONE (11:59)
== END 2019-08-21 14:10 | disposition home or self-care (01) ==
LOC: JP.ED 10:30
DX: R60.0 Localized edema (principal); R06.4 Hyperventilation; I10 Essential (primary) hypertension; J45.909 Unspecified asthma, uncomplicated; K21.9 Gastro-esophageal reflux disease without esophagitis; F31.9 Bipolar disorder, unspecified; F41.9 Anxiety disorder, unspecified; Z79.899 Other long term (current) drug therapy
CPT/HCPCS: 36415; 80053; 80156; 80305; 81001; 82803; 83880; 84443; 85025; 86140; 96374; 96375; 99285; A9270; J1885; J1940; J7030

== ENCOUNTER 2019-08-31 23:03 | Emergency (ER) | payer MEDICAID ==
[2019-09-01] MEDS ORDERED: Potassium Chloride 20 MEQ Tab.ER PO ONE (00:42)
[2019-09-01] MEDS ORDERED: Ketorolac 60 MG/2 ML SDV IM ONE (01:47)
--- NOTE | 2019-09-01 01:53 | EDM.PDOC ---
ED HPI GENERAL MEDICAL PROBLEM - General Chief Complaint: Chest Pain Stated Complaint: CHEST PAIN, SOB Time Seen by Provider: 09/01/19 01:48 Source of Information: Reports: Patient History Limitations: Reports: No Limitations - History of Present Illness INITIAL COMMENTS - FREE TEXT/NARRATIVE: pt arrived breathing rapidly and complainin of chest pain. She is having episodes like this and after breathing rapidly she will pass out. She has an appt at [facility] for a generalized workup for the possible seizure activity. Onset: Today, Sudden, Other (pt had had a good day otherwise. ) Duration: Hour(s): Location: Reports: Chest, Other (pt had discomfort in her chest. ) Associated Symptoms: Reports: Chest Pain, Shortness of Breath, Other (pt was hyperventilating at first. ) Treatments GALLERY OR MUSEUM GUIDE: Reports: Aspirin Left Chest Pain Score (Numeric/FACES): 8 - Related Data Allergies Allergy/AdvReac Type Severity Reaction Status Date / Time No Known Allergies Allergy Verified 08/31/19 23:19 Home Meds: Home Meds OLANZapine [Olanzapine] 20 mg PO BEDTIME 05/03/17 [History] Gabapentin [Neurontin] 600 mg PO QID 08/24/18 [History] Omeprazole 40 mg PO ACBREAKFAST 08/24/18 [History] lamoTRIgine [Lamictal] 350 mg PO DAILY 08/24/18 [History] carBAMazepine [Carbamazepine] 400 mg PO BEDTIME 09/28/18 [History] Cyproheptadine HCl 2 tab PO BEDTIME 11/07/18 [History] ALPRAZolam [Xanax] 1 mg PO QID 08/12/19 [History] busPIRone [Buspar] 10 mg PO TID 08/12/19 [History] Dextroamphetamine/Amphetamine [Adderall 30 mg Tablet] 15 mg PO QID 08/31/19 [History] Metoprolol Succinate 25 mg PO BEDTIME 08/31/19 [History] Past Medical History HEENT History: Reports: Impaired Vision Cardiovascular History: Reports: Arrhythmia, Hypertension, Other (See Below) Other Cardiovascular History: "small heart", tachycardia Respiratory History: Reports: Asthma, Other (See Below) Other Respiratory History: chest tube for collapsed lung Gastrointestinal History: Reports: GERD Genitourinary History: Reports: None FICTION AND NONFICTION AUTHOR History: Reports: , Other (See Below) Other FICTION AND NONFICTION AUTHOR 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 Musculoskeletal History: Reports: Other (See Below) Other Musculoskeletal History: right hip pain Neurological History: Reports: Seizure Other Neuro History: 11 seizures this month. Psychiatric History: Reports: Anxiety, Bipolar, Depression, PTSD Endocrine/Metabolic History: Reports: None Hematologic History: Reports: Blood Transfusion(s) Immunologic History: Reports: None Oncologic (Cancer) History: Reports: Cervix Dermatologic History: Reports: None - Infectious Disease History Infectious Disease History: Reports: Chicken Pox - Past Surgical History HEENT Surgical History: Reports: Myringotomy w Tube(s), Other (See Below) Other HEENT Surgeries/Procedures: has dentures Cardiovascular Surgical History: Reports: None Respiratory Surgical History: Reports: None GI Surgical History: Reports: Colon, Small Bowel, Other (See Below) Other GI Surgeries/Procedures: "bowel surgery after pole went through side", Female Surgical History: Reports: Section, Cervical Cryotherapy, Tubal Ligation Other Neurological Surgeries/Procedures: craineotomy 14 years ago Musculoskeletal Surgical History: Reports: Hip Replacement Other Musculoskeletal Surgeries/Procedures:: right total hip revision 04/17/19 hip rvision May 06August 12 had muscle surgery on hip r. Other Oncologic Surgeries/Procedures: partial cervix removal Social & Family History - Family History Family Medical History: Noncontributory - Tobacco Use Smoking Status *Q: Current Every Day Smoker Years of Tobacco use: 15 Packs/Tins Daily: 0.5 Used Tobacco, but Quit: No Second Hand Smoke Exposure: Yes - Caffeine Use Caffeine Use: Reports: Coffee, Energy Drinks, Soda Caffeine Use Comment: 2 cups of coffee per day, 1 monster energy drink daily, a pepsi a day. - Alcohol Use Days Per Week of Alcohol Use: 0 - Recreational Drug Use Recreational Drug Use: No - Living Situation & Occupation Living situation: Reports: ED ROS GENERAL - Review of Systems Review Of Systems: See Below Constitutional: Reports: Weakness HEENT: Reports: No Symptoms Respiratory: Reports: Shortness of Breath Cardiovascular: Reports: Chest Pain Endocrine: Reports: No Symptoms GI/Abdominal: Reports: No Symptoms : Reports: No Symptoms Skin: Reports: No Symptoms Neurological: Reports: Other (pt had one episode while here when she did not repond to her sig other. ) Psychiatric: Reports: Anxiety ED EXAM, GENERAL - Physical Exam Exam: See Below Free Text/Narrative:: pt arrived with a history of having a acute onset of chest pain this afternoon. She had sewn all day otherwise. Exam Limited By: No Limitations General Appearance: Alert, Anxious, Mild Distress, Other (pupils equal and reactive. She had a ekg which shoed a sinus tach. ) Ears: Normal TMs Nose: Normal Inspection Throat/Mouth: Normal Inspection Head: Atraumatic Neck: Normal Inspection Respiratory/Chest: No Respiratory Distress, Other (pt was breathing shallow and rapid on arrival. ) Cardiovascular: Regular Rate, Rhythm, Tachycardia GI/Abdominal: Soft, Non-Tender (Female) Exam: Deferred Rectal (Female) Exam: Deferred Back Exam: Normal Inspection Neurological: Alert, Oriented, Normal Cognition Psychiatric: Anxious Course - Vital Signs Last Recorded V/S: Last Vital Signs Temp 36.3 C 09/01/19 00:57 Pulse 80 09/01/19 00:57 Resp 16 09/01/19 00:57 BP 145/87 H 09/01/19 00:57 Pulse Ox 100 09/01/19 00:57 - Orders/Labs/Meds Orders: Active Orders 24 hr Category Date Time Status Ketorolac [Toradol] Med 09/01/19 01:47 Once 60 mg IM ONETIME ONE Labs: Laboratory Tests 08/31/19 08/31/19 08/31/19 Range/Units 23:50 23:59 23:59 WBC 10.2 (4.5-11.0) K/uL RBC 3.92 (3.30-5.50) M/uL Hgb 12.7 (12.0-15.0) g/dL Hct 36.8 (36.0-48.0) % MCV 94 (80-98) fL MCH 32 H (27-31) pg MCHC 35 (32-36) % Plt Count 401 H (150-400) K/uL Neut % (Auto) 43 (36-66) % Lymph % (Auto) 45 H (24-44) % Burt % (Auto) 9 H (2-6) % Eos % (Auto) 2 (2-4) % Baso % (Auto) 1 (0-1) % VBG pH (7.350-7.450) Sodium 131 L (140-148) mmol/L Potassium 3.1 L (3.6-5.2) mmol/L Chloride 96 L (100-108) mmol/L Carbon Dioxide 27 (21-32) mmol/L Anion Gap 11.1 (5.0-14.0) mmol/L BUN 4 L D (7-18) mg/dL Creatinine 0.8 (0.6-1.0) mg/dL Est Cr Clr Drug Dosing 82.97 mL/min Estimated GFR (MDRD) > 60 (>60) Glucose 88 (74-106) mg/dL Calcium 8.2 L (8.5-10.1) mg/dL Total Bilirubin 0.2 (0.2-1.0) mg/dL AST 17 (15-37) U/L ALT 14 (12-78) U/L Alkaline Phosphatase 94 (46-116) U/L Troponin I < 0.017 (0.000-0.056) ng/mL Total Protein 6.8 (6.4-8.2) g/dL Albumin 3.3 L (3.4-5.0) g/dL Globulin 3.5 (2.3-3.5) g/dL Albumin/Globulin Ratio 0.9 L (1.2-2.2) Urine Color (YELLOW) Urine Appearance (CLEAR) Urine pH (5.0-8.0) Ur Specific [place] (1.008-1.030) Urine Protein (NEGATIVE) mg/dL Urine Glucose (UA) (NEGATIVE) mg/dL Urine Ketones (NEGATIVE) mg/dL Urine Occult Blood (NEGATIVE) Urine Nitrite (NEGATIVE) Urine Bilirubin (NEGATIVE) Urine Urobilinogen (0.2-1.0) EU/dL Ur Leukocyte Esterase (NEGATIVE) Urine RBC (0-5) Urine WBC (0-5) Ur Epithelial Cells Amorphous Sediment Urine Bacteria Urine Mucus 09/01/19 09/01/19 Range/Units 00:50 00:53 WBC (4.5-11.0) K/uL RBC (3.30-5.50) M/uL Hgb (12.0-15.0) g/dL Hct (36.0-48.0) % MCV (80-98) fL MCH (27-31) pg MCHC (32-36) % Plt Count (150-400) K/uL Neut % (Auto) (36-66) % Lymph % (Auto) (24-44) % Burt % (Auto) (2-6) % Eos % (Auto) (2-4) % Baso % (Auto) (0-1) % VBG pH 7.429 (7.350-7.450) Sodium (140-148) mmol/L Potassium (3.6-5.2) mmol/L Chloride (100-108) mmol/L Carbon Dioxide (21-32) mmol/L Anion Gap (5.0-14.0) mmol/L BUN (7-18) mg/dL Creatinine (0.6-1.0) mg/dL Est Cr Clr Drug Dosing mL/min Estimated GFR (MDRD) (>60) Glucose (74-106) mg/dL Calcium (8.5-10.1) mg/dL Total Bilirubin (0.2-1.0) mg/dL AST (15-37) U/L ALT (12-78) U/L Alkaline Phosphatase (46-116) U/L Troponin I (0.000-0.056) ng/mL Total Protein (6.4-8.2) g/dL Albumin (3.4-5.0) g/dL Globulin (2.3-3.5) g/dL Albumin/Globulin Ratio (1.2-2.2) Urine Color Yellow (YELLOW) Urine Appearance Clear (CLEAR) Urine pH 6.0 (5.0-8.0) Ur Specific [place] 1.010 (1.008-1.030) Urine Protein Negative (NEGATIVE) mg/dL Urine Glucose (UA) Negative (NEGATIVE) mg/dL Urine Ketones Negative (NEGATIVE) mg/dL Urine Occult Blood Negative (NEGATIVE) Urine Nitrite Negative (NEGATIVE) Urine Bilirubin Negative (NEGATIVE) Urine Urobilinogen 0.2 (0.2-1.0) EU/dL Ur Leukocyte Esterase Negative (NEGATIVE) Urine RBC 0-5 (0-5) Urine WBC 0-5 (0-5) Ur Epithelial Cells Few Amorphous Sediment Not seen Urine Bacteria Few Urine Mucus Not seen Meds: Medications Discontinued Medications Generic Name Dose Route Start Last Admin Trade Name Freq PRN Reason Stop Dose Admin Potassium Chloride 20 meq 09/01/19 00:42 09/01/19 01:02 Klor-Con M20 PO 09/01/19 00:43 20 meq ONETIME ONE Administration - Re-Assessments/Exams Free Text/Narrative Re-Assessment/Exam: 09/01/19 01:53 pt had a normal appearing ekg-- sinus tach, her lab work is normal. She is oxggenating well. Pt does seem more relaxed then at arrival. She was given torodol 60 mg im for her chest wall pain. Departure - Departure Time of Disposition: 01:55 Disposition: Home, Self-Care 01 Condition: Fair Clinical Impression: Chest wall pain, Hyperventilation syndrome, Hypokalemia Referrals: Irina Arora PA-C [Primary Care Provider] - Care Plan Goals: high k foods, push fluids, keep appt at [place]. continue other meds. Sepsis Event Note (ED) - Evaluation Sepsis Screening Result: No Definite Risk - Focused Exam Vital Signs: Vital Signs Temp Pulse Resp BP Pulse Ox 09/01/19 00:57 36.3 C 80 16 145/87 H 100 08/31/19 23:16 36.3 C 102 H 24 H 137/91 H 97 - My Orders Last 24 Hours: My Active Orders 09/01/19 01:47 Ketorolac [Toradol] 60 mg IM ONETIME ONE - Assessment/Plan Last 24 Hours: My Active Orders 09/01/19 01:47 Ketorolac [Toradol] 60 mg IM ONETIME ONE
== END 2019-09-01 02:50 | disposition home or self-care (01) ==
LOC: JP.ED 23:03
DX: R07.89 Other chest pain (principal); E87.6 Hypokalemia; F45.8 Other somatoform disorders; R00.0 Tachycardia, unspecified; I10 Essential (primary) hypertension; K21.9 Gastro-esophageal reflux disease without esophagitis; F41.9 Anxiety disorder, unspecified; F31.9 Bipolar disorder, unspecified; R56.9 Unspecified convulsions; F17.210 Nicotine dependence, cigarettes, uncomplicated; Z79.899 Other long term (current) drug therapy
CPT/HCPCS: 36415; 80053; 81001; 82800; 84484; 85025; 93005; 93010; 96372; 99285; A9270; J1885; 99283

== ENCOUNTER 2019-10-20 13:42 | Emergency (ER) | payer MEDICAID ==
--- NOTE | 2019-10-20 14:50 | EDM.PDOC ---
ED HPI GENERAL MEDICAL PROBLEM - General Chief Complaint: Respiratory Problem Stated Complaint: COUGH / FEVER / RUNNY NOSE / SOB Time Seen by Provider: 10/20/19 14:15 Source of Information: Reports: Patient History Limitations: Reports: No Limitations - History of Present Illness INITIAL COMMENTS - FREE TEXT/NARRATIVE: 34 yo presents to the ER with sinus pressure cough and fever over the last 48 hours. fever max 103 per pt. last fever suppressing medication was 1 hour ago. denies SOB. She has had 2 COVID test over the last 2 months all negative. last was 2 weeks ago. fatigue. denies N/V/D. normal HR is very tachy per pt and she is drinking a monster on presentation today. 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 Chest Pain Score (Numeric/FACES): 5 - Related Data Allergies Allergy/AdvReac Type Severity Reaction Status Date / Time No Known Allergies Allergy Verified 10/20/19 14:08 Home Meds: Home Meds OLANZapine [Olanzapine] 20 mg PO BEDTIME 05/03/17 [History] Gabapentin [Neurontin] 600 mg PO QID 08/24/18 [History] Omeprazole 40 mg PO ACBREAKFAST 08/24/18 [History] lamoTRIgine [Lamictal] 350 mg PO DAILY 08/24/18 [History] carBAMazepine [Carbamazepine] 400 mg PO BEDTIME 09/28/18 [History] Cyproheptadine HCl 8 tab PO BEDTIME 11/07/18 [History] ALPRAZolam [Xanax] 1 mg PO QID 08/12/19 [History] busPIRone [Buspar] 10 mg PO TID 08/12/19 [History] Dextroamphetamine/Amphetamine [Adderall 30 mg Tablet] 15 mg PO QID 08/31/19 [His tory] Metoprolol Succinate 25 mg PO BEDTIME 08/31/19 [History] Calcium Carbonate/Vitamin D3 [Calcium 500 mg-Vit D3 600 Unit] 1 tab PO DAILY 10/02/19 [History] Multivitamin [Multi-Day Vitamins] 1 tab PO DAILY 10/02/19 [History] Past Medical History HEENT History: Reports: Impaired Vision Cardiovascular History: Reports: Arrhythmia, Hypertension, Other (See Below) Other Cardiovascular History: "small heart", tachycardia Respiratory History: Reports: Asthma, Other (See Below) Other Respiratory History: chest tube for collapsed lung Gastrointestinal History: Reports: GERD Genitourinary History: Reports: None TRICOT KNITTER History: Reports: , Other (See Below) Other TRICOT KNITTER 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 Musculoskeletal History: Reports: Other (See Below) Other Musculoskeletal History: states pain in R hip resolved. Walking without a device. left 5th finger FX 09/20/19 Neurological History: Reports: Seizure Other Neuro History: 11 seizures this month. Psychiatric History: Reports: Anxiety, Bipolar, Depression, PTSD Endocrine/Metabolic History: Reports: None Hematologic History: Reports: Blood Transfusion(s) Immunologic History: Reports: None Oncologic (Cancer) History: Reports: Cervix Dermatologic History: Reports: None - Infectious Disease History Infectious Disease History: Reports: Chicken Pox - Past Surgical History HEENT Surgical History: Reports: Myringotomy w Tube(s), Other (See Below) Other HEENT Surgeries/Procedures: has dentures Cardiovascular Surgical History: Reports: None Respiratory Surgical History: Reports: None GI Surgical History: Reports: Colon, Small Bowel, Other (See Below) Other GI Surgeries/Procedures: "bowel surgery after pole went through side", Female Surgical History: Reports: Section, Cervical Cryotherapy, Tubal Ligation Other Oncologic Surgeries/Procedures: partial cervix removal Social & Family History - Family History Family Medical History: Noncontributory - Tobacco Use Smoking Status *Q: Former Smoker Used Tobacco, but Quit: Yes Month/Year Tobacco Last Used: 09/14/2019 - Caffeine Use Caffeine Use: Reports: Energy Drinks Caffeine Use Comment: 2 cups of coffee per day, 1 monster energy drink daily, a pepsi a day. - Recreational Drug Use Recreational Drug Use: No - Living Situation & Occupation Living situation: Reports: ED ROS GENERAL - Review of Systems Review Of Systems: See Below Constitutional: Reports: Fever, Chills, Fatigue HEENT: Reports: Sinus Problem. Denies: Throat Pain Respiratory: Reports: Cough. Denies: Shortness of Breath, Wheezing Cardiovascular: Denies: No Symptoms, Chest Pain, Blood Pressure Problem GI/Abdominal: Denies: Abdominal Pain, Diarrhea, Nausea, Vomiting ED EXAM, GENERAL - Physical Exam Exam: See Below General Appearance: Alert, WD/WN, No Apparent Distress Ears: Normal External Exam, Normal Canal, Hearing Grossly Normal, Normal TMs Throat/Mouth: Normal Lips, Normal Teeth, Normal Gums, No Airway Compromise, Inflammation, Other (post nasal drip) Head: Atraumatic, Normocephalic Neck: Normal Inspection, Supple, Non-Tender, Full Range of Motion, Lymphadenopathy (R), Lymphadenopathy (L) Respiratory/Chest: No Respiratory Distress, Lungs Clear, Normal Breath Sounds, No Accessory Muscle Use, Chest Non-Tender. No: Crackles, Rhonchi, Wheezing Cardiovascular: No Murmur, Tachycardia GI/Abdominal: Soft, Non-Tender Neurological: Alert, Oriented Psychiatric: Normal Affect, Normal Mood Skin Exam: Warm, Dry, Intact, No Rash Course - Vital Signs Last Recorded V/S: Last Vital Signs Temp 36.6 C 10/20/19 14:04 Pulse 106 H 10/20/19 14:04 Resp 18 10/20/19 14:04 BP 138/75 10/20/19 14:04 Pulse Ox 95 10/20/19 14:04 - Orders/Labs/Meds Orders: Active Orders 24 hr Category Date Time Status CORONAVIRUS COVID-19, [facility] Stat Lab 10/20/19 14:53 Received Departure - Departure Time of Disposition: 14:50 Disposition: Home, Self-Care 01 Condition: Good Clinical Impression: Sinusitis Qualifiers: Sinusitis location: unspecified location Chronicity: acute Recurrence: non- recurrent Qualified Code(s): J01.90 - Acute sinusitis, unspecified Bronchitis, acute Qualifiers: Bronchitis organism: unspecified organism Qualified Code(s): J20.9 - Acute bronchitis, unspecified - Discharge Information *PRESCRIPTION DRUG MONITORING PROGRAM REVIEWED*: Not Applicable *COPY OF PRESCRIPTION DRUG MONITORING REPORT IN PATIENT SAVANNA: Not Applicable Instructions: Sinusitis, Adult, Acute Bronchitis, Adult Referrals: Vero Delaney CNM [Primary Care Provider] - Forms: ED Department Discharge Additional Instructions: you cannot return to work until24 hours post nonsuppressed fever Augmentin twice daily for 10 days prednisone taper increase fluid intake to 1.5-2 liters Sepsis Event Note (ED) - Evaluation Sepsis Screening Result: Possible Sepsis Risk - Focused Exam Vital Signs: Vital Signs Temp Pulse Resp BP Pulse Ox 10/20/19 14:04 36.6 C 106 H 18 138/75 95 - My Orders Last 24 Hours: My Active Orders 10/20/19 14:53 CORONAVIRUS COVID-19, NICOLLE Stat - Assessment/Plan Last 24 Hours: My Active Orders 10/20/19 14:53 CORONAVIRUS COVID-19, NICOLLE Stat
== END 2019-10-20 15:04 | disposition home or self-care (01) ==
LOC: JP.ED 13:42
DX: J01.90 Acute sinusitis, unspecified (principal); J20.9 Acute bronchitis, unspecified; I10 Essential (primary) hypertension; J45.909 Unspecified asthma, uncomplicated; K21.9 Gastro-esophageal reflux disease without esophagitis; F31.9 Bipolar disorder, unspecified; F41.9 Anxiety disorder, unspecified; R56.9 Unspecified convulsions; Z79.899 Other long term (current) drug therapy; Z87.891 Personal history of nicotine dependence; Z20.828 Contact with and (suspected) exposure to other viral communicable diseases
CPT/HCPCS: 99283; U0002

== ENCOUNTER 2020-07-27 20:08 | Emergency (ER) | payer MEDICAID ==
[2020-07-28] MEDS ORDERED: Acetaminophen/HYDROcodone 325-5 MG Tab PO ONE (00:12)
[2020-07-28] MEDS ORDERED: Cyclobenzaprine 10 MG Tab PO ONE (00:14)
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
--- NOTE | 2020-07-29 10:02 | CR ---
Hip Min 2V or 3V Rt CLINICAL HISTORY: Right hip arthroplasty FINDINGS: Patient has a total right hip arthroplasty. Components appear well seated. There is an increasing amount of very articular ossification superior lateral to the acetabulum and femoral head prosthesis. IMPRESSION: Total right hip arthroplasty Increasing periarticular ossification when compared to 2020
== END 2020-07-28 01:54 | disposition home or self-care (01) ==
LOC: JP.ED 20:08
DX: M25.551 Pain in right hip (principal); I10 Essential (primary) hypertension; J45.909 Unspecified asthma, uncomplicated; K21.9 Gastro-esophageal reflux disease without esophagitis; R56.9 Unspecified convulsions; Z79.899 Other long term (current) drug therapy; Z72.0 Tobacco use; Z96.641 Presence of right artificial hip joint; W08.XXXA Fall from other furniture, initial encounter
CPT/HCPCS: 73502; 99283; A9270

== ENCOUNTER 2020-10-06 19:41 | Emergency (ER) | payer MEDICAID ==
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
[2020-10-06] MEDS ORDERED: Dexamethasone 4 MG/ML SDV IVPUSH ONE (20:22)
[2020-10-06] MEDS ORDERED: Ketorolac 30 MG/ML SDV IVPUSH ONE (20:22)
[2020-10-06] MEDS ORDERED: diphenhydrAMINE 50 MG/ML SDV IVPUSH ONE (20:22)
[2020-10-06] MEDS ORDERED: Sodium Chloride 0.9% 10 ML Syringe FLUSH PRN (20:22)
[2020-10-06] MEDS ORDERED: Prochlorperazine 10 MG/2 ML SDV IVPUSH ONE (20:22)
[2020-10-06] MEDS ORDERED: Sodium Chloride 0.9% 1,000 ML IV SCH (20:30)
== END 2020-10-06 23:34 | disposition home or self-care (01) ==
LOC: JP.ED 19:41
DX: G43.119 Migraine with aura, intractable, without status migrainosus (principal); R07.81 Pleurodynia; I10 Essential (primary) hypertension; K21.9 Gastro-esophageal reflux disease without esophagitis; Z79.899 Other long term (current) drug therapy; Z72.0 Tobacco use
CPT/HCPCS: 36415; 80053; 85025; 86140; 96374; 96375; 99284; J0780; J1100; J1200; J1885; J7030

== ENCOUNTER 2021-02-24 19:30 | Emergency (ER) | payer MEDICAID ==
[2021-02-24 21:13] LABS: CORONAVIRUS COVID-19 NAA POSITIVE (NEGATIVE)
== END 2021-02-24 21:24 | disposition home or self-care (01) ==
LOC: JP.ED 19:30
DX: U07.1 COVID-19 (principal); J01.80 Other acute sinusitis; B96.89 Other specified bacterial agents as the cause of diseases classified elsewhere; I10 Essential (primary) hypertension; J45.909 Unspecified asthma, uncomplicated; K21.9 Gastro-esophageal reflux disease without esophagitis; Z79.899 Other long term (current) drug therapy
CPT/HCPCS: 0241U; 36415; 71045; 85025; 86140; 99283

== ENCOUNTER 2021-03-07 19:11 | Emergency (ER) | payer MEDICAID ==
[2021-03-07] MEDS ORDERED: Acetaminophen/HYDROcodone 325-5 MG Tab PO ONE (21:33)
== END 2021-03-07 22:37 | disposition home or self-care (01) ==
LOC: JP.ED 19:11
DX: S82.831A Other fracture of upper and lower end of right fibula, initial encounter for closed fracture (principal); I10 Essential (primary) hypertension; J45.909 Unspecified asthma, uncomplicated; K21.9 Gastro-esophageal reflux disease without esophagitis; G40.909 Epilepsy, unspecified, not intractable, without status epilepticus; Z72.0 Tobacco use; Z79.899 Other long term (current) drug therapy; X50.1XXA Overexertion from prolonged static or awkward postures, initial encounter; Y93.01 Activity, walking, marching and hiking; Y92.039 Unspecified place in apartment as the place of occurrence of the external cause
CPT/HCPCS: 73610-26-RT; 73610-RT; 99283-25; A9270-GY

== ENCOUNTER 2021-03-08 14:02 | Emergency (ER) | payer MEDICAID ==
[2021-03-08] MEDS ORDERED: Sodium Chloride 0.9% 1,000 ML IV SCH (15:00)
== END 2021-03-08 18:44 | disposition home or self-care (01) ==
LOC: JP.ED 14:02
DX: R56.9 Unspecified convulsions (principal); T43.295A Adverse effect of other antidepressants, initial encounter; I10 Essential (primary) hypertension; K21.9 Gastro-esophageal reflux disease without esophagitis; Z79.899 Other long term (current) drug therapy; Z72.0 Tobacco use
CPT/HCPCS: 36415; 70450; 71045; 80053; 80305; 81001; 85025; 99283; 99284; J7030

== ENCOUNTER 2021-05-18 22:11 | Emergency (ER) | payer MEDICAID ==
[2021-05-18] MEDS ORDERED: Potassium Chloride 20 MEQ Tab.ER PO ONE (23:49)
== END 2021-05-19 00:26 | disposition home or self-care (01) ==
LOC: JP.ED 22:11
DX: R56.9 Unspecified convulsions (principal); F43.10 Post-traumatic stress disorder, unspecified; F90.2 Attention-deficit hyperactivity disorder, combined type; E87.6 Hypokalemia; K21.9 Gastro-esophageal reflux disease without esophagitis; Z79.899 Other long term (current) drug therapy
CPT/HCPCS: 36415; 80053; 80156; 80175; 80305-QW; 81001; 82550; 83605; 85025; 99283; 99284; A9270-GY

== ENCOUNTER 2021-06-02 11:48 | Emergency (ER) | payer MEDICAID | END 2021-06-02 13:32 | disposition home or self-care (01) | LOC: JP.ED 11:48 | DX: S00.03XA Contusion of scalp, initial encounter (principal); R56.9 Unspecified convulsions; E83.51 Hypocalcemia; I10 Essential (primary) hypertension; K21.9 Gastro-esophageal reflux disease without esophagitis; Z88.8 Allergy status to other drugs, medicaments and biological substances; Z79.899 Other long term (current) drug therapy; Z72.0 Tobacco use; W22.09XA Striking against other stationary object, initial encounter | CPT/HCPCS: 36415; 80053; 80305-QW; 81001; 82550; 85025; 99283; 99285 ==

== ENCOUNTER 2021-07-07 15:12 | Emergency (ER) | payer MEDICAID ==
[2021-07-07] MEDS ORDERED: Ketorolac 30 MG/ML SDV IM ONE (15:31)
== END 2021-07-07 20:33 | disposition left against medical advice (07) ==
LOC: JP.ED 15:12
DX: F44.5 Conversion disorder with seizures or convulsions (principal); F43.10 Post-traumatic stress disorder, unspecified; I10 Essential (primary) hypertension; K21.9 Gastro-esophageal reflux disease without esophagitis; F17.210 Nicotine dependence, cigarettes, uncomplicated; Z88.8 Allergy status to other drugs, medicaments and biological substances; Z79.899 Other long term (current) drug therapy; Z20.822 Contact with and (suspected) exposure to COVID-19; Z86.59 Personal history of other mental and behavioral disorders; Z87.820 Personal history of traumatic brain injury
CPT/HCPCS: 36415; 80048; 80305; 81001; 81025; 85025; 87635; 96372; 99284; J1885; 99285; U0002

== ENCOUNTER 2021-07-14 18:11 | Emergency (ER) | payer MEDICAID ==
[2021-07-14] MEDS ORDERED: Methocarbamol 500 MG Tab PO ONE (18:35)
[2021-07-14] MEDS ORDERED: Acetaminophen/HYDROcodone 325-5 MG Tab PO ONE (18:37)
== END 2021-07-14 19:00 | disposition home or self-care (01) ==
LOC: JP.ED 18:11
DX: G89.29 Other chronic pain (principal); M54.50 Low back pain, unspecified; K21.9 Gastro-esophageal reflux disease without esophagitis; F17.210 Nicotine dependence, cigarettes, uncomplicated; Z79.899 Other long term (current) drug therapy
CPT/HCPCS: 99283; A9270-GY

== ENCOUNTER 2021-07-16 19:02 | Emergency (ER) | payer MEDICAID ==
[2021-07-16] MEDS ORDERED: Promethazine 25 MG/ML SDV IM ONE (20:10)
[2021-07-16] MEDS ORDERED: hydrOXYzine HCL 100 MG/2 ML SDV IM ONE (21:18)
[2021-07-16] MEDS ORDERED: Ketorolac 30 MG/ML SDV IVPUSH ONE (21:18)
== END 2021-07-16 21:47 | disposition home or self-care (01) ==
LOC: JP.ED 19:02
DX: G89.29 Other chronic pain (principal); M54.50 Low back pain, unspecified; M25.551 Pain in right hip; I10 Essential (primary) hypertension; K21.9 Gastro-esophageal reflux disease without esophagitis; F17.210 Nicotine dependence, cigarettes, uncomplicated; Z88.8 Allergy status to other drugs, medicaments and biological substances; Z79.899 Other long term (current) drug therapy
CPT/HCPCS: 72040; 72040-26; 72100; 72100-26; 73502-26-RT; 73502-RT; 96372; 96374; 99283; 99284-25; J2550

== ENCOUNTER 2021-08-05 20:50 | Emergency (ER) | payer MEDICAID | END 2021-08-05 22:59 | disposition home or self-care (01) | LOC: JP.ED 20:50 | DX: S70.01XA Contusion of right hip, initial encounter (principal); M89.40 Other hypertrophic osteoarthropathy, unspecified site; I10 Essential (primary) hypertension; K21.9 Gastro-esophageal reflux disease without esophagitis; F17.210 Nicotine dependence, cigarettes, uncomplicated; Z88.4 Allergy status to anesthetic agent; Z88.8 Allergy status to other drugs, medicaments and biological substances; Z79.899 Other long term (current) drug therapy; W17.89XA Other fall from one level to another, initial encounter | CPT/HCPCS: 73502-26-RT; 73502-RT; 99282; 99284-25 ==

== ENCOUNTER 2021-08-22 19:15 | Emergency (ER) | payer MEDICAID ==
[2021-08-22] MEDS ORDERED: Sodium Chloride 0.9% 1,000 ML IV ONE (21:19)
[2021-08-22] MEDS ORDERED: Ketorolac 30 MG/ML SDV IVPUSH ONE (21:44)
[2021-08-22] MEDS ORDERED: Prochlorperazine 10 MG/2 ML SDV IVPUSH ONE (21:45)
[2021-08-22] MEDS ORDERED: diphenhydrAMINE 50 MG/ML SDV IVPUSH ONE (21:46)
== END 2021-08-22 22:43 | disposition home or self-care (01) ==
LOC: JP.ED 19:15
DX: G43.909 Migraine, unspecified, not intractable, without status migrainosus (principal); I10 Essential (primary) hypertension; K21.9 Gastro-esophageal reflux disease without esophagitis; F17.210 Nicotine dependence, cigarettes, uncomplicated; Z88.4 Allergy status to anesthetic agent; Z88.8 Allergy status to other drugs, medicaments and biological substances; Z79.899 Other long term (current) drug therapy
CPT/HCPCS: 96374; 96375; 99283; J0780; J1200; J1885; J7030

== ENCOUNTER 2021-09-26 09:01 | Inpatient (IN) | payer MEDICAID ==
[~2021-09-26 09:01] MED LIST changes: +Midazolam 1 MG/ML 2 ML SDV ONE; -Povidone-Iodine 10% Soln 118.25 ML Bottle ONE; +Propofol 200 MG/20 ML SDV ONE; +fentaNYL 100 MCG/2 ML SDV ONE
[2021-09-26] MEDS ORDERED: Nozin Nasal Sanitizer NASBOTH SCH (09:30)
[2021-09-26] MEDS ORDERED: Bupivacaine 0.5% 30 ML SDV ONE (09:40)
[2021-09-26 10:24] LABS: ESTIMATED GFR 118 mL/min (>60)
[2021-09-26] MEDS ORDERED: Lactated Ringers 1,000 ML IV SCH (10:30)
[2021-09-26] MEDS ORDERED: ceFAZolin 2 GM in Sodium Chloride 0.9% 50 ML IV ONE (11:00)
[2021-09-26] MEDS ORDERED: Midazolam 1 MG/ML 2 ML SDV ONE (11:03)
[2021-09-26] MEDS ORDERED: fentaNYL 100 MCG/2 ML SDV ONE ×3 (11:06→14:17)
[2021-09-26] MEDS ORDERED: Propofol 200 MG/20 ML SDV ONE ×3 (12:42→13:52)
[2021-09-26] MEDS ORDERED: Lactated Ringers 1,000 ML ONE ×2 (14:22)
[2021-09-26] MEDS ORDERED: oxyCODONE 5 MG Tab PO PRN (14:59)
[2021-09-26] MEDS ORDERED: Ondansetron 4 MG/2 ML SDV IVPUSH PRN (14:59)
[2021-09-26] MEDS ORDERED: traMADol 50 MG Tab PO PRN (14:59)
[2021-09-26] MEDS ORDERED: Ondansetron 4 MG Tab.DIS PO PRN (15:06)
[2021-09-26] MEDS ORDERED: Cyproheptadine 4 MG Tab PO PRN (15:06)
[2021-09-26] MEDS: Sodium Chloride 0.9% 1,000 ML IV SCH (16:24)
[2021-09-26] MEDS: Acetaminophen 325 MG Tab PO SCH ×2 (16:27→22:00)
[2021-09-26] MEDS: ALPRAZolam 0.5 MG Tab PO SCH ×2 (16:27→22:01)
[2021-09-26] MEDS: Gabapentin 300 MG Cap PO SCH ×2 (16:28→21:59)
[2021-09-26] MEDS: Nozin Nasal Sanitizer NASBOTH SCH (20:40)
[2021-09-26] MEDS: Ketorolac 30 MG/ML SDV IVPUSH SCH (20:41)
[2021-09-26] MEDS: carBAMazepine 200 MG Tab PO SCH (20:42)
[2021-09-26] MEDS: oxyCODONE 5 MG Tab PO PRN (20:42)
[2021-09-26] MEDS: OLANZapine 5 MG Tab PO SCH (20:42)
[2021-09-26] MEDS: Docusate Sodium 100 MG Cap PO SCH (20:43)
[2021-09-27] MEDS: oxyCODONE 5 MG Tab PO PRN ×6 (01:04→21:07)
[2021-09-27] MEDS: Sodium Chloride 0.9% 1,000 ML IV SCH (01:49)
[2021-09-27] MEDS: Acetaminophen 325 MG Tab PO SCH ×4 (03:13→21:06)
[2021-09-27] MEDS: HYDROmorphone 0.5 MG/0.5 ML Syringe IVPUSH PRN ×2 (03:17→15:33)
[2021-09-27] MEDS: Ketorolac 30 MG/ML SDV IVPUSH SCH ×3 (05:11→20:43)
[2021-09-27] MEDS: Gabapentin 300 MG Cap PO SCH ×4 (05:14→21:06)
[2021-09-27] MEDS: ALPRAZolam 0.5 MG Tab PO SCH ×4 (05:14→21:07)
[2021-09-27] MEDS: Pantoprazole 40 MG Tab.CR PO SCH (07:26)
[2021-09-27] MEDS: Nozin Nasal Sanitizer NASBOTH SCH ×2 (08:34→20:42)
[2021-09-27] MEDS: ATOMOXETINE 40 MG PO SCH (08:35)
[2021-09-27] MEDS: Docusate Sodium 100 MG Cap PO SCH ×2 (08:36→20:43)
[2021-09-27] MEDS: Enoxaparin 30 MG/0.3 ML Syringe SUBCUT SCH (08:37)
[2021-09-27] MEDS: lamoTRIgine 25 MG Tab PO SCH (08:37)
[2021-09-27] MEDS: FLUoxetine 20 MG Cap PO SCH (08:37)
[2021-09-27] MEDS: Metoprolol Succinate 50 MG Tab.ER PO SCH (08:37)
[2021-09-27] MEDS: lamoTRIgine 100 MG Tab PO SCH (08:37)
[2021-09-27] MEDS: Nicotine 14 MG/24 Hr Patch TRDERM SCH (09:09)
[2021-09-27] MEDS ORDERED: ceFAZolin 1 GM in Sodium Chloride 0.9% 50 ML IV SCH (09:15)
[2021-09-27] MEDS: ceFAZolin 1 GM in Premix Bag 1 BAG IV SCH ×2 (10:15→17:05)
[2021-09-27] MEDS: carBAMazepine 200 MG Tab PO SCH (20:42)
[2021-09-27] MEDS: OLANZapine 5 MG Tab PO SCH (20:43)
[2021-09-28] MEDS: ceFAZolin 1 GM in Premix Bag 1 BAG IV SCH ×2 (01:58→09:51)
[2021-09-28] MEDS: Acetaminophen 325 MG Tab PO SCH ×2 (04:24→09:52)
[2021-09-28] MEDS: Ketorolac 30 MG/ML SDV IVPUSH SCH (04:25)
[2021-09-28] MEDS: ALPRAZolam 0.5 MG Tab PO SCH ×2 (05:58→09:52)
[2021-09-28] MEDS: Gabapentin 300 MG Cap PO SCH ×2 (05:59→09:51)
[2021-09-28] MEDS: Pantoprazole 40 MG Tab.CR PO SCH (07:27)
[2021-09-28] MEDS: oxyCODONE 5 MG Tab PO PRN (08:32)
[2021-09-28] MEDS: Enoxaparin 30 MG/0.3 ML Syringe SUBCUT SCH (08:32)
[2021-09-28] MEDS: Nozin Nasal Sanitizer NASBOTH SCH (08:33)
[2021-09-28] MEDS: Docusate Sodium 100 MG Cap PO SCH (08:33)
[2021-09-28] MEDS: ATOMOXETINE 40 MG PO SCH (08:34)
[2021-09-28] MEDS: lamoTRIgine 25 MG Tab PO SCH (08:34)
[2021-09-28] MEDS: lamoTRIgine 100 MG Tab PO SCH (08:35)
[2021-09-28] MEDS: FLUoxetine 20 MG Cap PO SCH (08:36)
[2021-09-28] MEDS: Metoprolol Succinate 50 MG Tab.ER PO SCH ×2 (08:37→13:12)
[2021-09-28] MEDS: Nicotine 14 MG/24 Hr Patch TRDERM SCH (09:51)
== END 2021-09-28 13:14 | disposition home or self-care (01) | DRG 468 ==
LOC: JP.SDS 09:01 → JP.MS 14:59 → JP.SDS 09-27 08:31
PROVIDERS: ADMIT Specialist; ATTEND Specialist
PROC: 0SRA0JZ Replacement of Right Hip Joint, Acetabular Surface with Synthetic Substitute, Open Approach (ICD-10-PCS; principal; 2021-09-26)
PROC: 0SPA0JZ Removal of Synthetic Substitute from Right Hip Joint, Acetabular Surface, Open Approach (ICD-10-PCS; 2021-09-26)
PROC: 0QB60ZX Excision of Right Upper Femur, Open Approach, Diagnostic (ICD-10-PCS; 2021-09-26)
PROC: 0T9B70Z Drainage of Bladder with Drainage Device, Via Natural or Artificial Opening (ICD-10-PCS; 2021-09-27)
PROC: 0TPBX0Z Removal of Drainage Device from Bladder, External Approach (ICD-10-PCS; 2021-09-27)
DX: T84.030A Mechanical loosening of internal right hip prosthetic joint, initial encounter (principal); I10 Essential (primary) hypertension; Z96.641 Presence of right artificial hip joint; G40.909 Epilepsy, unspecified, not intractable, without status epilepticus; F32.A Depression, unspecified; D64.9 Anemia, unspecified; Q65.89 Other specified congenital deformities of hip; Z79.899 Other long term (current) drug therapy; Y83.8 Other surgical procedures as the cause of abnormal reaction of the patient, or of later complication, without mention of misadventure at the time of the procedure; Y92.89 Other specified places as the place of occurrence of the external cause
CPT/HCPCS: 36415; 72170; 72170-26; 80053; 81025; 82565; 85025; 85027; 85651; 86140; 86850; 86900; 86901; 87015; 87070; 87075; 87077; 87102; 87116; 87186; 87205; 87206; 88304; 88305; 88311; 97110-GP; 97162-GP; 97165-GO; 97530-GP; A9270-GY; C1713; C1776; J0690; J1170; J1580; J1650; J1885; J2250; J2704; J3010; J3370; J3490; J7030; J7050; J7120; Q0162

== ENCOUNTER 2021-11-13 08:18 | Emergency (ER) | payer MEDICAID ==
[2021-11-13] MEDS: Bacitracin Oint 1 GM U/D Packet TOP ONE (09:14)
== END 2021-11-13 09:18 | disposition home or self-care (01) ==
LOC: JP.ED 08:18
DX: L02.511 Cutaneous abscess of right hand (principal); I10 Essential (primary) hypertension; Z88.1 Allergy status to other antibiotic agents; Z88.8 Allergy status to other drugs, medicaments and biological substances; Z88.4 Allergy status to anesthetic agent; Z79.899 Other long term (current) drug therapy
CPT/HCPCS: 87070; 87077; 87186; 87205; 99283

== ENCOUNTER 2021-12-25 16:33 | Emergency (ER) | payer MEDICAID ==
[2021-12-25] MEDS ORDERED: fentaNYL 100 MCG/2 ML SDV IVPUSH ONE (17:04)
== END 2021-12-25 18:15 | disposition home or self-care (01) ==
LOC: JP.ED 16:33
DX: M25.551 Pain in right hip (principal); G40.909 Epilepsy, unspecified, not intractable, without status epilepticus; I10 Essential (primary) hypertension; K21.9 Gastro-esophageal reflux disease without esophagitis; F17.210 Nicotine dependence, cigarettes, uncomplicated; Z88.1 Allergy status to other antibiotic agents; Z88.5 Allergy status to narcotic agent; Z79.899 Other long term (current) drug therapy
CPT/HCPCS: 73501; 96374; 99283; J3010

== ENCOUNTER 2022-01-13 12:09 | Emergency (ER) | payer MEDICAID ==
[2022-01-13] MEDS ORDERED: LORazepam 2 MG/ML SDV IVPUSH ONE (12:35)
== END 2022-01-13 17:14 | disposition home or self-care (01) ==
LOC: JP.ED 12:09
DX: R56.9 Unspecified convulsions (principal); K21.9 Gastro-esophageal reflux disease without esophagitis; Z88.1 Allergy status to other antibiotic agents; Z88.5 Allergy status to narcotic agent; Z88.4 Allergy status to anesthetic agent; Z88.8 Allergy status to other drugs, medicaments and biological substances; Z79.899 Other long term (current) drug therapy
CPT/HCPCS: 80048; 80175; 80305; 84703; 85025; 96374; 99284; J2060; 36415

== ENCOUNTER 2022-01-27 13:02 | Emergency (ER) | payer MEDICAID ==
[2022-01-27 14:46] LABS: CORONAVIRUS COVID-19 NAA POSITIVE (NEGATIVE)
== END 2022-01-27 15:20 | disposition home or self-care (01) ==
LOC: JP.ED 13:02
DX: U07.1 COVID-19 (principal); I10 Essential (primary) hypertension; F17.210 Nicotine dependence, cigarettes, uncomplicated; Z88.6 Allergy status to analgesic agent; Z88.1 Allergy status to other antibiotic agents; Z88.4 Allergy status to anesthetic agent; Z79.899 Other long term (current) drug therapy
CPT/HCPCS: 0241U; 99284

== ENCOUNTER 2022-02-01 15:24 | Emergency (ER) | payer MEDICAID ==
[2022-02-01] MEDS ORDERED: Ketorolac 30 MG/ML SDV IM ONE (16:07)
[2022-02-01] MEDS ORDERED: Ondansetron 4 MG Tab.DIS PO ONE (16:07)
[2022-02-01] MEDS ORDERED: LORazepam 1 MG Tab PO ONE (16:08)
[2022-02-01 17:13] LABS: ESTIMATED GFR 123 mL/min (>60)
[2022-02-01] MEDS ORDERED: HYDROmorphone 1 MG/ML Syringe IM ONE (17:21)
[2022-02-01] MEDS ORDERED: Lactated Ringers 1,000 ML IV ONE (17:57)
== END 2022-02-01 18:26 | disposition home or self-care (01) ==
LOC: JP.ED 15:24
DX: S09.90XA Unspecified injury of head, initial encounter (principal); S70.01XA Contusion of right hip, initial encounter; I10 Essential (primary) hypertension; J45.909 Unspecified asthma, uncomplicated; K21.9 Gastro-esophageal reflux disease without esophagitis; M19.90 Unspecified osteoarthritis, unspecified site; Z72.0 Tobacco use; Z88.8 Allergy status to other drugs, medicaments and biological substances; Z88.1 Allergy status to other antibiotic agents; Z88.4 Allergy status to anesthetic agent; Z79.899 Other long term (current) drug therapy; W22.8XXA Striking against or struck by other objects, initial encounter
CPT/HCPCS: 36415; 70450; 73502; 80053; 85025; 96372; 99284; A9270; J1170; J1885; Q0162

== ENCOUNTER 2022-02-13 16:23 | Emergency (ER) | payer MEDICAID ==
[2022-02-13] MEDS ORDERED: Albuterol/Ipratropium 3.0-0.5 MG/3 ML Neb Soln NEB ONE (16:58)
[2022-02-13 17:43] LABS: CORONAVIRUS COVID-19 NAA NEGATIVE (NEGATIVE)
[2022-02-13 19:17] LABS: ESTIMATED GFR 97 mL/min (>60); TROPONIN I HIGH SENSITIVITY 4.6 pg/mL (<=60.3)
== END 2022-02-13 19:51 | disposition home or self-care (01) ==
LOC: JP.ED 16:23
DX: J06.9 Acute upper respiratory infection, unspecified (principal); I10 Essential (primary) hypertension; J45.909 Unspecified asthma, uncomplicated; K21.9 Gastro-esophageal reflux disease without esophagitis; M19.90 Unspecified osteoarthritis, unspecified site; Z88.8 Allergy status to other drugs, medicaments and biological substances; Z88.1 Allergy status to other antibiotic agents; Z88.4 Allergy status to anesthetic agent; Z79.899 Other long term (current) drug therapy; Z20.822 Contact with and (suspected) exposure to COVID-19
CPT/HCPCS: 0241U; 36415; 71046; 80053; 83605; 84484; 85025; 94640; 99284; J7620

== ENCOUNTER 2022-02-22 11:17 | Emergency (ER) | payer MEDICAID ==
[2022-02-22] MEDS ORDERED: Ketorolac 30 MG/ML SDV IM ONE (12:15)
== END 2022-02-22 13:43 | disposition home or self-care (01) ==
LOC: JP.ED 11:17
DX: R56.9 Unspecified convulsions (principal); M94.0 Chondrocostal junction syndrome [Tietze]; R29.818 Other symptoms and signs involving the nervous system; I10 Essential (primary) hypertension; K21.9 Gastro-esophageal reflux disease without esophagitis; Z88.1 Allergy status to other antibiotic agents; Z88.5 Allergy status to narcotic agent; Z88.8 Allergy status to other drugs, medicaments and biological substances; Z79.899 Other long term (current) drug therapy; Z86.16 Personal history of COVID-19; Z87.820 Personal history of traumatic brain injury
CPT/HCPCS: 71045; 93005; 96372; 99285; J1885; 93010; 99284

== ENCOUNTER 2022-06-10 22:20 | Emergency (ER) | payer MEDICAID | END 2022-06-10 22:44 | disposition home or self-care (01) | LOC: JP.ED 22:20 | DX: L03.115 Cellulitis of right lower limb (principal); I10 Essential (primary) hypertension; J45.909 Unspecified asthma, uncomplicated; K21.9 Gastro-esophageal reflux disease without esophagitis; M19.90 Unspecified osteoarthritis, unspecified site; Z86.16 Personal history of COVID-19; Z88.8 Allergy status to other drugs, medicaments and biological substances; Z88.1 Allergy status to other antibiotic agents; Z88.4 Allergy status to anesthetic agent; Z79.899 Other long term (current) drug therapy | CPT/HCPCS: 99283 ==

== ENCOUNTER 2022-06-11 19:41 | Emergency (ER) | payer MEDICAID ==
[2022-06-11] MEDS ORDERED: Prochlorperazine 10 MG/2 ML SDV IVPUSH ONE (20:10)
[2022-06-11] MEDS ORDERED: Ketorolac 15 MG/ML SDV IVPUSH ONE (20:10)
[2022-06-11] MEDS ORDERED: diphenhydrAMINE 50 MG/ML SDV IVPUSH ONE (20:10)
[2022-06-11] MEDS ORDERED: Sodium Chloride 0.9% 1,000 ML IV SCH (20:15)
[2022-06-11 20:30] LABS: ESTIMATED GFR 118 mL/min (>60)
== END 2022-06-11 21:45 | disposition home or self-care (01) ==
LOC: JP.ED 19:41
DX: S09.90XA Unspecified injury of head, initial encounter (principal); R56.9 Unspecified convulsions; I10 Essential (primary) hypertension; J45.909 Unspecified asthma, uncomplicated; K21.9 Gastro-esophageal reflux disease without esophagitis; Z79.899 Other long term (current) drug therapy; Z88.1 Allergy status to other antibiotic agents; Z88.4 Allergy status to anesthetic agent; Z88.5 Allergy status to narcotic agent; Z86.16 Personal history of COVID-19; Z72.0 Tobacco use; W18.09XA Striking against other object with subsequent fall, initial encounter; Y92.002 Bathroom of unspecified non-institutional (private) residence as the place of occurrence of the external cause
CPT/HCPCS: 36415; 70450; 80053; 81001; 83605; 85025; 96374; 96375; 99283; 99285-25; J0780; J1200; J1885

== ENCOUNTER 2022-07-10 10:54 | Emergency (ER) | payer MEDICAID ==
[2022-07-10 12:40] LABS: BASOPHILS ABSOLUTE AUTO 0.07 K/uL (0.00-0.10); BASOPHILS PERCENT AUTO 0.9 % (0.1-1.3); EOSINOPHILS ABSOLUTE AUTO 0.24 K/uL (0.00-0.40); HEMATOCRIT 37.7 % (34.3-46.0); HEMOGLOBIN 12.9 g/dL (11.2-15.5); IMMATURE GRAN PERCENT AUTO 0.3 % (0.0-0.7); LYMPHOCYTES ABSOLUTE AUTO 4.53 K/uL (0.8-3.3); LYMPHOCYTES PERCENT AUTO 57.1 % (11.4-47.7); MEAN CORPUSCULAR HEMOGLOBIN 33.9 pg (31.6-35.5); MEAN CORPUSCULAR HGB CONC 34.2 g/dL (31.6-35.5); MONOCYTES ABSOLUTE AUTO 0.52 K/uL (0.20-0.90); MONOCYTES PERCENT AUTO 6.6 % (3.3-12.6); NEUTROPHILS ABSOLUTE AUTO 2.55 K/uL (1.0-7.6); NEUTROPHILS PERCENT AUTO 32.1 % (40.0-78.1); PLATELET COUNT,PLT 357 K/uL (130-375); RED BLOOD CELL COUNT 3.81 M/uL (3.77-5.24); WHITE BLOOD CELL COUNT,WBC 7.9 K/uL (3.2-11.0)
[2022-07-10 12:41] LABS: IMMATURE GRAN ABSOLUTE AUTO 0.02 K/uL (0.00-0.23)
[2022-07-10 12:54] LABS: CALCIUM 8.4 mg/dL (8.5-10.1); CREATININE 0.6 mg/dL (0.6-1.0); EST CRCL DRUG DOSING (CG) 105.16 mL/min
== END 2022-07-10 13:54 | disposition home or self-care (01) ==
LOC: JP.ED 10:54
DX: R56.9 Unspecified convulsions (principal); I10 Essential (primary) hypertension; J45.909 Unspecified asthma, uncomplicated; K21.9 Gastro-esophageal reflux disease without esophagitis; F17.210 Nicotine dependence, cigarettes, uncomplicated; Z86.16 Personal history of COVID-19; Z79.899 Other long term (current) drug therapy; Z88.8 Allergy status to other drugs, medicaments and biological substances; Z88.1 Allergy status to other antibiotic agents; Z88.4 Allergy status to anesthetic agent
CPT/HCPCS: 36415; 80048; 85025; 99284

== ENCOUNTER 2022-07-31 10:39 | Emergency (ER) | payer MEDICAID ==
[2022-07-31 13:11] LABS: AMORPHOUS SEDIMENT,URINE NOT SEEN; APPEARANCE,URINE SLIGHTLY CLOUDY (CLEAR); BACTERIA,URINE MANY; BILIRUBIN,URINE NEGATIVE (NEGATIVE); COLOR,URINE YELLOW (YELLOW); EPITHELIAL CELLS,URINE MODERATE; GLUCOSE,URINE NEGATIVE (NEGATIVE); KETONES,URINE NEGATIVE (NEGATIVE); LEUKOCYTE ESTERASE,URINE NEGATIVE (NEGATIVE); MUCUS,URINE NOT SEEN; NITRITE,URINE NEGATIVE (NEGATIVE); OCCULT BLOOD,URINE NEGATIVE (NEGATIVE); PH,URINE 5.5 (5.0-8.0); PROTEIN,URINE NEGATIVE (NEGATIVE); RBC,URINE NOT SEEN (0-5); UROBILINOGEN,URINE 0.2 EU/dL (0.2-1.0); WBC,URINE 0-5 (0-5)
== END 2022-07-31 13:45 | disposition home or self-care (01) ==
LOC: JP.ED 10:39
DX: K52.9 Noninfective gastroenteritis and colitis, unspecified (principal); J45.909 Unspecified asthma, uncomplicated; I10 Essential (primary) hypertension; K21.9 Gastro-esophageal reflux disease without esophagitis; F17.210 Nicotine dependence, cigarettes, uncomplicated; Z88.1 Allergy status to other antibiotic agents; Z88.8 Allergy status to other drugs, medicaments and biological substances; Z79.51 Long term (current) use of inhaled steroids; Z79.899 Other long term (current) drug therapy; Z86.16 Personal history of COVID-19
CPT/HCPCS: 81001; 87651-QW; 99284

== ENCOUNTER 2022-08-14 10:51 | Emergency (ER) | payer MEDICAID ==
[2022-08-14 11:15] LABS: BASOPHILS ABSOLUTE AUTO 0.08 K/uL (0.00-0.10); BASOPHILS PERCENT AUTO 0.5 % (0.1-1.3); EOSINOPHILS ABSOLUTE AUTO 0.28 K/uL (0.00-0.40); EOSINOPHILS PERCENT AUTO 1.8 % (0.0-5.4); HEMATOCRIT 36.6 % (34.3-46.0); HEMOGLOBIN 12.7 g/dL (11.2-15.5); IMMATURE GRAN ABSOLUTE AUTO 0.06 K/uL (0.00-0.23); IMMATURE GRAN PERCENT AUTO 0.4 % (0.0-0.7); LYMPHOCYTES ABSOLUTE AUTO 4.22 K/uL (0.8-3.3); LYMPHOCYTES PERCENT AUTO 27.5 % (11.4-47.7); MEAN CORPUSCULAR HEMOGLOBIN 33.8 pg (31.6-35.5); MEAN CORPUSCULAR HGB CONC 34.7 g/dL (31.6-35.5); MEAN CORPUSCULAR VOLUME 97.3 fL (81.4-99.0); MONOCYTES PERCENT AUTO 6.5 % (3.3-12.6); NEUTROPHILS ABSOLUTE AUTO 9.71 K/uL (1.0-7.6); NEUTROPHILS PERCENT AUTO 63.3 % (40.0-78.1); PLATELET COUNT,PLT 284 K/uL (130-375); RED BLOOD CELL COUNT 3.76 M/uL (3.77-5.24); WHITE BLOOD CELL COUNT,WBC 15.4 K/uL (3.2-11.0)
[2022-08-14] MEDS ORDERED: Dextrose 5%-0.9% NaCl 1,000 ML IV SCH (11:15)
[2022-08-14 11:30] LABS: CALCIUM 8.1 mg/dL (8.5-10.1); CREATININE 0.8 mg/dL (0.6-1.0); EST CRCL DRUG DOSING (CG) 78.87 mL/min; POTASSIUM,K 3.3 mmol/L (3.6-5.2)
[2022-08-14 11:37] LABS: ANION GAP 7.3 mmol/L (5.0-14.0)
== END 2022-08-14 13:03 | disposition home or self-care (01) ==
LOC: JP.ED 10:51
DX: G40.909 Epilepsy, unspecified, not intractable, without status epilepticus (principal); F44.9 Dissociative and conversion disorder, unspecified; I10 Essential (primary) hypertension; Z88.1 Allergy status to other antibiotic agents; Z88.4 Allergy status to anesthetic agent; Z88.8 Allergy status to other drugs, medicaments and biological substances; Z79.899 Other long term (current) drug therapy; Z86.16 Personal history of COVID-19
CPT/HCPCS: 36415; 80048; 80156; 80175; 83605; 85025; 99284

== ENCOUNTER 2022-08-23 22:06 | Emergency (ER) | payer MEDICAID ==
[2022-08-23] MEDS ORDERED: LORazepam 2 MG/ML SDV IVPUSH ONE (22:55)
== END 2022-08-24 02:37 | disposition home or self-care (01) ==
LOC: JP.ED 22:06
DX: R56.9 Unspecified convulsions (principal); F17.210 Nicotine dependence, cigarettes, uncomplicated; Z86.16 Personal history of COVID-19; I10 Essential (primary) hypertension; J45.909 Unspecified asthma, uncomplicated; K21.9 Gastro-esophageal reflux disease without esophagitis; Z79.899 Other long term (current) drug therapy; Z88.1 Allergy status to other antibiotic agents; Z88.8 Allergy status to other drugs, medicaments and biological substances
CPT/HCPCS: 96374; 99284; J2060

== ENCOUNTER 2022-08-24 12:27 | Emergency (ER) | payer MEDICAID ==
[2022-08-24] MEDS ORDERED: droPERidol 5 MG/2 ML SDV IVPUSH ONE (12:39)
[2022-08-24] MEDS ORDERED: Sodium Chloride 0.9% 10 ML Syringe FLUSH PRN (12:39)
[2022-08-24] MEDS ORDERED: diphenhydrAMINE 50 MG/ML SDV IVPUSH ONE (12:41)
[2022-08-24 12:51] LABS: BASE EXCESS VENOUS -1.3 mm/L; BICARBONATE,VENOUS 22.6 mmol/L; CARBOXYHEMOGLOBIN 9.9 % (0.0-1.6); O2 SATURATION VENOUS 84.9; OXYHEMOGLOBIN 75.6 %; PH,VENOUS 7.403 (7.350-7.450); PO2 VENOUS 50.1 mm/Hg; TOTAL HEMOGLOBIN 13.6 g/dL (12.0-16.0)
[2022-08-24 12:53] LABS: BASOPHILS ABSOLUTE AUTO 0.09 K/uL (0.00-0.10); BASOPHILS PERCENT AUTO 0.5 % (0.1-1.3); EOSINOPHILS ABSOLUTE AUTO 0.09 K/uL (0.00-0.40); EOSINOPHILS PERCENT AUTO 0.5 % (0.0-5.4); HEMATOCRIT 39.9 % (34.3-46.0); HEMOGLOBIN 13.5 g/dL (11.2-15.5); IMMATURE GRAN ABSOLUTE AUTO 0.07 K/uL (0.00-0.23); IMMATURE GRAN PERCENT AUTO 0.4 % (0.0-0.7); LYMPHOCYTES ABSOLUTE AUTO 2.91 K/uL (0.8-3.3); LYMPHOCYTES PERCENT AUTO 17.5 % (11.4-47.7); MEAN CORPUSCULAR HEMOGLOBIN 33.3 pg (31.6-35.5); MEAN CORPUSCULAR HGB CONC 33.8 g/dL (31.6-35.5); MEAN CORPUSCULAR VOLUME 98.3 fL (81.4-99.0); MONOCYTES ABSOLUTE AUTO 1.39 K/uL (0.20-0.90); MONOCYTES PERCENT AUTO 8.4 % (3.3-12.6); NEUTROPHILS ABSOLUTE AUTO 12.05 K/uL (1.0-7.6); NEUTROPHILS PERCENT AUTO 72.7 % (40.0-78.1); PLATELET COUNT,PLT 507 K/uL (130-375); RED BLOOD CELL COUNT 4.06 M/uL (3.77-5.24); WHITE BLOOD CELL COUNT,WBC 16.6 K/uL (3.2-11.0)
[2022-08-24 13:12] LABS: CREATININE 0.8 mg/dL (0.6-1.0); EST CRCL DRUG DOSING (CG) 78.87 mL/min; POTASSIUM,K 4.2 mmol/L (3.6-5.2)
[2022-08-24 13:14] LABS: ANION GAP 14.2 mmol/L (5.0-14.0)
[2022-08-24 13:15] LABS: ALBUMIN 3.5 g/dL (3.4-5.0); MAGNESIUM 1.9 mg/dL (1.8-2.4)
[2022-08-24] MEDS ORDERED: Sodium Chloride 0.9% 1,000 ML IV ONE (13:43)
[2022-08-24 14:26] LABS: AMPHETAMINES SCREEN, URINE NEGATIVE (NEGATIVE); BARBITURATE SCREEN,URINE NEGATIVE (NEGATIVE); BENZODIAZEPINES SCREEN,URINE PRESUMPTIVE POSITIVE (NEGATIVE); METHADONE SCREEN, URINE NEGATIVE (NEGATIVE); METHAMPHETAMINES SCREEN, URINE NEGATIVE (NEGATIVE); OXYCODONE SCREEN,URINE NEGATIVE (NEGATIVE); PROPOXYPHENE SCREEN,URINE NEGATIVE (NEGATIVE); THC SCREEN,URINE 50 NG/ML NEGATIVE (NEGATIVE)
[2022-08-24 15:19] LABS: LYME AB IgG Negative (Negative); LYME AB IgM Positive (Negative)
[2022-08-24] MEDS ORDERED: Doxycycline 100 MG in Sodium Chloride 0.9% 100 ML IV ONE (15:38)
[2022-08-29 00:10] LABS: IGG P18 AB. Absent (.); IGG P23 AB. Absent (.); IGG P28 AB. Absent (.); IGG P30 AB. Absent (.); IGG P39 AB. Absent (.); IGG P41 AB. Absent (.); IGG P45 AB. Absent (.); IGG P58 AB. Absent (.); IGG P66 AB. Absent (.); IGG P93 AB. Absent (.); IGM P23 AB. Present (.); IGM P39 AB. Present (.); IGM P41 AB. Present (.); LYME IGG LB INTERP. Negative (.); LYME IGM LB INTERP. Positive (.)
== END 2022-08-24 17:18 | disposition home or self-care (01) ==
LOC: JP.ED 12:27
DX: S00.83XA Contusion of other part of head, initial encounter (principal); A69.20 Lyme disease, unspecified; R56.9 Unspecified convulsions; H55.00 Unspecified nystagmus; H57.04 Mydriasis; K21.9 Gastro-esophageal reflux disease without esophagitis; J45.909 Unspecified asthma, uncomplicated; I10 Essential (primary) hypertension; Z88.1 Allergy status to other antibiotic agents; Z88.8 Allergy status to other drugs, medicaments and biological substances; Z79.899 Other long term (current) drug therapy; Z86.16 Personal history of COVID-19; X58.XXXA Exposure to other specified factors, initial encounter
CPT/HCPCS: 36415; 70450; 70486; 73030; 80048; 80305; 82040; 82803; 83605; 83735; 85025; 86617; 86618; 86788; 86789; 87040; 87086; 96361; 96365; 96375; 99284; J1200; J1790; J3490; J7030

== ENCOUNTER 2022-08-27 13:43 | Emergency (ER) | payer MEDICAID ==
[2022-08-27 14:18] LABS: HEMATOCRIT 34.6 % (34.3-46.0); HEMOGLOBIN 11.7 g/dL (11.2-15.5); MEAN CORPUSCULAR HEMOGLOBIN 33.4 pg (31.6-35.5); MEAN CORPUSCULAR HGB CONC 33.8 g/dL (31.6-35.5); MEAN CORPUSCULAR VOLUME 98.9 fL (81.4-99.0); RED BLOOD CELL COUNT 3.5 M/uL (3.77-5.24); WHITE BLOOD CELL COUNT,WBC 11.2 K/uL (3.2-11.0)
[2022-08-27] MEDS ORDERED: hydrOXYzine HCL 100 MG/2 ML SDV IM ONE (14:36)
[2022-08-27 14:41] LABS: ALANINE AMINOTRANSFERASE,ALT 30 U/L (12-78); ALBUMIN 3.3 g/dL (3.4-5.0); ALKALINE PHOSPHATASE 94 U/L (46-116); ASPARTATE AMNIOTRANSFERASE,AST 35 U/L (15-37); BILIRUBIN TOTAL 0.3 mg/dL (0.2-1.0); BLOOD UREA NITROGEN,BUN 7 mg/dL (7-18); C-REACTIVE PROTEIN 1.19 mg/dL (0.0-0.3); CALCIUM 8.4 mg/dL (8.5-10.1); CARBON DIOXIDE,CO2 23 mmol/L (21-32); CHLORIDE,CL 105 mmol/L (100-108); CREATININE 0.9 mg/dL (0.6-1.0); ESTIMATED GFR 84 mL/min (>60); GLUCOSE RANDOM 82 mg/dL (74-106); MAGNESIUM 1.6 mg/dL (1.8-2.4); POTASSIUM,K 3.9 mmol/L (3.6-5.2); PROTEIN TOTAL,TP 6.7 g/dL (6.4-8.2); SODIUM,NA 139 mmol/L (140-148)
[2022-08-27 14:42] LABS: ANION GAP 14.9 mmol/L (5.0-14.0)
[2022-08-29 11:15] LABS: HBSAG SCREEN Negative (Negative)
== END 2022-08-27 15:41 | disposition home or self-care (01) ==
LOC: JP.ED 13:43
DX: F44.5 Conversion disorder with seizures or convulsions (principal); I10 Essential (primary) hypertension; J45.909 Unspecified asthma, uncomplicated; K21.9 Gastro-esophageal reflux disease without esophagitis; F17.210 Nicotine dependence, cigarettes, uncomplicated; Z86.16 Personal history of COVID-19; Z88.1 Allergy status to other antibiotic agents; Z88.4 Allergy status to anesthetic agent; Z79.899 Other long term (current) drug therapy
CPT/HCPCS: 36415; 80053; 80307; 83735; 85027; 86140; 86803; 87340; 87449; 96372; 99284; J3410

== ENCOUNTER 2022-08-27 23:04 | Emergency (ER) | payer MEDICAID ==
[2022-08-27] MEDS ORDERED: hydrOXYzine HCL 100 MG/2 ML SDV IM ONE (23:14)
[2022-08-27] MEDS ORDERED: OLANZapine 10 MG Vial IM ONE (23:14)
[2022-08-28 00:06] LABS: APPEARANCE,URINE CLEAR (CLEAR); BILIRUBIN,URINE NEGATIVE (NEGATIVE); COLOR,URINE YELLOW (YELLOW); GLUCOSE,URINE NEGATIVE (NEGATIVE); KETONES,URINE NEGATIVE (NEGATIVE); LEUKOCYTE ESTERASE,URINE TRACE (NEGATIVE); NITRITE,URINE NEGATIVE (NEGATIVE); OCCULT BLOOD,URINE TRACE-INTACT (NEGATIVE); PH,URINE 5.5 (5.0-8.0); PROTEIN,URINE TRACE mg/dL (NEGATIVE); UROBILINOGEN,URINE 0.2 EU/dL (0.2-1.0)
[2022-08-28 00:16] LABS: AMORPHOUS SEDIMENT,URINE FEW; BACTERIA,URINE FEW; EPITHELIAL CELLS,URINE MANY; MUCUS,URINE NOT SEEN; RBC,URINE 0-5 (0-5); WBC,URINE 0-5 (0-5)
[2022-08-28 00:17] LABS: AMPHETAMINES SCREEN, URINE NEGATIVE (NEGATIVE); BARBITURATE SCREEN,URINE NEGATIVE (NEGATIVE); BENZODIAZEPINES SCREEN,URINE NEGATIVE (NEGATIVE); METHADONE SCREEN, URINE NEGATIVE (NEGATIVE); METHAMPHETAMINES SCREEN, URINE NEGATIVE (NEGATIVE); OXYCODONE SCREEN,URINE NEGATIVE (NEGATIVE); PROPOXYPHENE SCREEN,URINE NEGATIVE (NEGATIVE); THC SCREEN,URINE 50 NG/ML NEGATIVE (NEGATIVE)
[2022-08-28] MEDS ORDERED: LORazepam 2 MG/ML SDV IM ONE (00:56)
[2022-08-28 02:20] LABS: BASOPHILS ABSOLUTE AUTO 0.08 K/uL (0.00-0.10); BASOPHILS PERCENT AUTO 0.5 % (0.1-1.3); EOSINOPHILS ABSOLUTE AUTO 0.03 K/uL (0.00-0.40); EOSINOPHILS PERCENT AUTO 0.2 % (0.0-5.4); HEMATOCRIT 34.4 % (34.3-46.0); HEMOGLOBIN 11.7 g/dL (11.2-15.5); IMMATURE GRAN ABSOLUTE AUTO 0.07 K/uL (0.00-0.23); IMMATURE GRAN PERCENT AUTO 0.4 % (0.0-0.7); LYMPHOCYTES ABSOLUTE AUTO 2.58 K/uL (0.8-3.3); LYMPHOCYTES PERCENT AUTO 15.2 % (11.4-47.7); MEAN CORPUSCULAR HEMOGLOBIN 33.5 pg (31.6-35.5); MEAN CORPUSCULAR VOLUME 98.6 fL (81.4-99.0); MONOCYTES ABSOLUTE AUTO 1.27 K/uL (0.20-0.90); MONOCYTES PERCENT AUTO 7.5 % (3.3-12.6); NEUTROPHILS ABSOLUTE AUTO 12.96 K/uL (1.0-7.6); NEUTROPHILS PERCENT AUTO 76.2 % (40.0-78.1); PLATELET COUNT,PLT 385 K/uL (130-375); RED BLOOD CELL COUNT 3.49 M/uL (3.77-5.24)
[2022-08-28 02:46] LABS: ALANINE AMINOTRANSFERASE,ALT 37 U/L (12-78); ALBUMIN 3.3 g/dL (3.4-5.0); ALKALINE PHOSPHATASE 95 U/L (46-116); ASPARTATE AMNIOTRANSFERASE,AST 100 U/L (15-37); BILIRUBIN TOTAL 0.5 mg/dL (0.2-1.0); BLOOD UREA NITROGEN,BUN 11 mg/dL (7-18); CARBON DIOXIDE,CO2 25 mmol/L (21-32); CHLORIDE,CL 104 mmol/L (100-108); GLUCOSE RANDOM 85 mg/dL (74-106); POTASSIUM,K 3.7 mmol/L (3.6-5.2); PROTEIN TOTAL,TP 6.5 g/dL (6.4-8.2); SODIUM,NA 139 mmol/L (140-148)
[2022-08-28 03:08] LABS: ANION GAP 13.7 mmol/L (5.0-14.0); CALCIUM 8.6 mg/dL (8.5-10.1); CREATININE 0.9 mg/dL (0.6-1.0); EST CRCL DRUG DOSING (CG) 73.19 mL/min; ESTIMATED GFR 84 mL/min (>60)
[2022-08-28] MEDS ORDERED: Benztropine 1 MG Tab PO ONE (05:44)
[2022-08-28] MEDS ORDERED: Sodium Chloride 0.9% 1,000 ML IV ONE (05:45)
[2022-08-28] MEDS ORDERED: LORazepam 2 MG/ML SDV IVPUSH STA (06:09)
[2022-08-28] MEDS ORDERED: lamoTRIgine 100 MG Tab PO ONE (06:27)
[2022-08-28] MEDS ORDERED: Gabapentin 300 MG Cap PO ONE (06:28)
== END 2022-08-28 15:48 | disposition left against medical advice (07) ==
LOC: JP.ED 23:04
DX: F44.5 Conversion disorder with seizures or convulsions (principal); I10 Essential (primary) hypertension; J45.909 Unspecified asthma, uncomplicated; K21.9 Gastro-esophageal reflux disease without esophagitis; F17.210 Nicotine dependence, cigarettes, uncomplicated; Z86.16 Personal history of COVID-19; Z79.899 Other long term (current) drug therapy; Z88.8 Allergy status to other drugs, medicaments and biological substances; Z88.1 Allergy status to other antibiotic agents; Z88.4 Allergy status to anesthetic agent; Z20.822 Contact with and (suspected) exposure to COVID-19
CPT/HCPCS: 36415; 80053; 80143; 80179; 80305; 80307; 81001; 81025; 84443; 85025; 87635; 96372; 96374; 99285; A9270; J2060; J2405; J3410; J7030; U0002

== ENCOUNTER 2022-09-13 21:13 | Emergency (ER) | payer MEDICAID ==
[2022-09-13 22:04] LABS: BASOPHILS ABSOLUTE AUTO 0.06 K/uL (0.00-0.10); BASOPHILS PERCENT AUTO 0.8 % (0.1-1.3); EOSINOPHILS ABSOLUTE AUTO 0.14 K/uL (0.00-0.40); EOSINOPHILS PERCENT AUTO 1.8 % (0.0-5.4); HEMATOCRIT 33.8 % (34.3-46.0); HEMOGLOBIN 11.4 g/dL (11.2-15.5); IMMATURE GRAN ABSOLUTE AUTO 0.01 K/uL (0.00-0.23); IMMATURE GRAN PERCENT AUTO 0.1 % (0.0-0.7); LYMPHOCYTES ABSOLUTE AUTO 3.59 K/uL (0.8-3.3); LYMPHOCYTES PERCENT AUTO 46.1 % (11.4-47.7); MEAN CORPUSCULAR HEMOGLOBIN 33.5 pg (31.6-35.5); MEAN CORPUSCULAR HGB CONC 33.7 g/dL (31.6-35.5); MEAN CORPUSCULAR VOLUME 99.4 fL (81.4-99.0); MONOCYTES ABSOLUTE AUTO 0.61 K/uL (0.20-0.90); MONOCYTES PERCENT AUTO 7.8 % (3.3-12.6); NEUTROPHILS ABSOLUTE AUTO 3.38 K/uL (1.0-7.6); NEUTROPHILS PERCENT AUTO 43.4 % (40.0-78.1); PLATELET COUNT,PLT 308 K/uL (130-375); WHITE BLOOD CELL COUNT,WBC 7.8 K/uL (3.2-11.0)
[2022-09-13 22:19] LABS: CALCIUM 8.5 mg/dL (8.5-10.1); CREATININE 0.8 mg/dL (0.6-1.0); EST CRCL DRUG DOSING (CG) 80.6 mL/min; POTASSIUM,K 4.2 mmol/L (3.6-5.2)
[2022-09-13 22:20] LABS: ANION GAP 9.2 mmol/L (5.0-14.0)
== END 2022-09-13 23:05 | disposition home or self-care (01) ==
LOC: JP.ED 21:13
DX: R56.9 Unspecified convulsions (principal); R51.9 Headache, unspecified; I10 Essential (primary) hypertension; J45.909 Unspecified asthma, uncomplicated; K21.9 Gastro-esophageal reflux disease without esophagitis; F17.210 Nicotine dependence, cigarettes, uncomplicated; Z86.16 Personal history of COVID-19; Z88.8 Allergy status to other drugs, medicaments and biological substances; Z88.1 Allergy status to other antibiotic agents; Z88.4 Allergy status to anesthetic agent; Z79.899 Other long term (current) drug therapy
CPT/HCPCS: 36415; 80048; 83605; 85025; 99284

== ENCOUNTER 2022-10-18 15:51 | Emergency (ER) | payer MEDICAID ==
[2022-10-18] MEDS ORDERED: Sodium Chloride 0.9% 1,000 ML IV SCH (16:15)
[2022-10-18 16:25] LABS: BASOPHILS ABSOLUTE AUTO 0.06 K/uL (0.00-0.10); BASOPHILS PERCENT AUTO 0.7 % (0.1-1.3); EOSINOPHILS ABSOLUTE AUTO 0.07 K/uL (0.00-0.40); EOSINOPHILS PERCENT AUTO 0.8 % (0.0-5.4); HEMATOCRIT 33.8 % (34.3-46.0); HEMOGLOBIN 11.4 g/dL (11.2-15.5); IMMATURE GRAN ABSOLUTE AUTO 0.03 K/uL (0.00-0.23); IMMATURE GRAN PERCENT AUTO 0.4 % (0.0-0.7); LYMPHOCYTES PERCENT AUTO 22.4 % (11.4-47.7); MEAN CORPUSCULAR HEMOGLOBIN 33.8 pg (31.6-35.5); MEAN CORPUSCULAR HGB CONC 33.7 g/dL (31.6-35.5); MEAN CORPUSCULAR VOLUME 100.3 fL (81.4-99.0); MONOCYTES ABSOLUTE AUTO 0.44 K/uL (0.20-0.90); MONOCYTES PERCENT AUTO 5.2 % (3.3-12.6); NEUTROPHILS ABSOLUTE AUTO 5.97 K/uL (1.0-7.6); NEUTROPHILS PERCENT AUTO 70.5 % (40.0-78.1); PLATELET COUNT,PLT 319 K/uL (130-375); RED BLOOD CELL COUNT 3.37 M/uL (3.77-5.24); WHITE BLOOD CELL COUNT,WBC 8.5 K/uL (3.2-11.0)
[2022-10-18 16:37] LABS: BILIRUBIN,URINE NEGATIVE (NEGATIVE); COLOR,URINE YELLOW (YELLOW); GLUCOSE,URINE NEGATIVE (NEGATIVE); KETONES,URINE NEGATIVE (NEGATIVE); LEUKOCYTE ESTERASE,URINE TRACE (NEGATIVE); NITRITE,URINE NEGATIVE (NEGATIVE); OCCULT BLOOD,URINE NEGATIVE (NEGATIVE); PH,URINE 7.5 (5.0-8.0); PROTEIN,URINE NEGATIVE (NEGATIVE); UROBILINOGEN,URINE 0.2 EU/dL (0.2-1.0)
[2022-10-18 16:39] LABS: BASE EXCESS VENOUS 1.9 mm/L; BICARBONATE,VENOUS 26.7 mmol/L; CARBOXYHEMOGLOBIN 8.2 % (0.0-1.6); METHEMOGLOBIN 0.5 %; O2 SATURATION VENOUS 95.2; OXYHEMOGLOBIN 86.9 %; PCO2 VENOUS 45.1 mm/Hg; TOTAL HEMOGLOBIN 11.5 g/dL (12.0-16.0)
[2022-10-18 16:44] LABS: APPEARANCE,URINE CLOUDY (CLEAR); RBC,URINE 0-5 (0-5)
[2022-10-18 16:45] LABS: AMORPHOUS SEDIMENT,URINE NOT SEEN; BACTERIA,URINE MANY; EPITHELIAL CELLS,URINE FEW; MUCUS,URINE FEW
[2022-10-18 16:54] LABS: AMPHETAMINES SCREEN, URINE NEGATIVE (NEGATIVE); BARBITURATE SCREEN,URINE NEGATIVE (NEGATIVE); BENZODIAZEPINES SCREEN,URINE NEGATIVE (NEGATIVE); METHADONE SCREEN, URINE NEGATIVE (NEGATIVE); METHAMPHETAMINES SCREEN, URINE NEGATIVE (NEGATIVE); OXYCODONE SCREEN,URINE NEGATIVE (NEGATIVE); PROPOXYPHENE SCREEN,URINE NEGATIVE (NEGATIVE); THC SCREEN,URINE 50 NG/ML NEGATIVE (NEGATIVE)
[2022-10-18 17:02] LABS: ALANINE AMINOTRANSFERASE,ALT 20 U/L (12-78); ALKALINE PHOSPHATASE 92 U/L (46-116); ASPARTATE AMNIOTRANSFERASE,AST 21 U/L (15-37); BILIRUBIN TOTAL 0.3 mg/dL (0.2-1.0); BLOOD UREA NITROGEN,BUN 6 mg/dL (7-18); CALCIUM 7.8 mg/dL (8.5-10.1); CARBON DIOXIDE,CO2 28 mmol/L (21-32); CHLORIDE,CL 102 mmol/L (100-108); CREATININE 0.7 mg/dL (0.6-1.0); ESTIMATED GFR 113 mL/min (>60); GLUCOSE RANDOM 89 mg/dL (74-106); POTASSIUM,K 3.8 mmol/L (3.6-5.2); PROTEIN TOTAL,TP 6.1 g/dL (6.4-8.2); SODIUM,NA 136 mmol/L (140-148)
[2022-10-18 17:03] LABS: ANION GAP 9.8 mmol/L (5.0-14.0)
[2022-10-18] MEDS ORDERED: Magnesium Sulfate/Water 2 GM in Premix Bag 1 BAG IV ONE (17:30)
[2022-10-18 19:36] VITALS: BP 112/71; PULSE 58
== END 2022-10-18 21:40 | disposition home or self-care (01) ==
LOC: JP.ED 15:51
DX: G40.909 Epilepsy, unspecified, not intractable, without status epilepticus (principal); F06.8 Other specified mental disorders due to known physiological condition; N39.0 Urinary tract infection, site not specified; E83.42 Hypomagnesemia; R06.4 Hyperventilation; I10 Essential (primary) hypertension; J45.909 Unspecified asthma, uncomplicated; K21.9 Gastro-esophageal reflux disease without esophagitis; Z86.16 Personal history of COVID-19; Z79.899 Other long term (current) drug therapy; Z88.1 Allergy status to other antibiotic agents; Z88.8 Allergy status to other drugs, medicaments and biological substances
CPT/HCPCS: 36415; 80053; 80305-QW; 80307; 81001; 81025; 82803; 83605; 83735; 84484; 85025; 93005; 93010; 96361; 96365; 96366; 96375; 99284; 99284-25; J3360; J3475; J7030

== ENCOUNTER 2024-01-30 08:33 | Day surgery (SDC) | payer MEDICAID ==
[2024-01-30] MEDS ORDERED: Ondansetron 4 MG/2 ML SDV ONE (08:49)
[2024-01-30] MEDS ORDERED: Succinylcholine 200 MG/10 ML MDV ONE (08:49)
[2024-01-30] MEDS ORDERED: Propofol 200 MG/20 ML SDV ONE (08:49)
[2024-01-30] MEDS ORDERED: Rocuronium 50 MG/5 ML Vial ONE (08:49)
[2024-01-30] MEDS ORDERED: Glycopyrrolate 0.2 MG/ML 5 ML MDV ONE (08:49)
[2024-01-30] MEDS ORDERED: Neostigmine Methylsulfate 10 MG/10 ML MDV ONE (08:49)
[2024-01-30] MEDS ORDERED: Dexamethasone 4 MG/ML SDV ONE (08:49)
[2024-01-30] MEDS ORDERED: fentaNYL 250 MCG/5 ML SDV ONE ×2 (08:49→11:57)
[2024-01-30] MEDS ORDERED: ceFAZolin 2 GM in Sodium Chloride 0.9% 50 ML IV ONE (09:00)
[2024-01-30 09:01] LABS: HEMATOCRIT 37.4 % (34.3-46.0); HEMOGLOBIN 12.6 g/dL (11.2-15.5); MEAN CORPUSCULAR HEMOGLOBIN 34.4 pg (31.6-35.5); MEAN CORPUSCULAR HGB CONC 33.7 g/dL (31.6-35.5); MEAN CORPUSCULAR VOLUME 102.2 fL (81.4-99.0); RED BLOOD CELL COUNT 3.66 M/uL (3.77-5.24); WHITE BLOOD CELL COUNT,WBC 10.9 K/uL (3.2-11.0)
[2024-01-30 09:20] LABS: CALCIUM 8.5 mg/dL (8.5-10.1); CREATININE 0.7 mg/dL (0.6-1.0); EST CRCL DRUG DOSING (CG) 88.37 mL/min; POTASSIUM,K 4.8 mmol/L (3.6-5.2)
[2024-01-30 09:22] LABS: ANION GAP 11.8 mmol/L (5.0-14.0)
[2024-01-30] MEDS: Nozin Nasal Sanitizer NASBOTH ONE (09:31)
[2024-01-30] MEDS: Lactated Ringers 1,000 ML IV SCH (09:51)
[2024-01-30] MEDS: ceFAZolin 1 GM in Premix Bag 1 BAG IV ONE (11:20)
[2024-01-30] MEDS: Bupivacaine 0.5% 50 ML MDV ONE (12:10)
[2024-01-30] MEDS ORDERED: Sugammadex Sodium 200 MG/2 ML VIAL IV ONE (12:27)
[2024-01-30] MEDS: Acetaminophen/oxyCODONE 325-5 MG Tab PO PRN (14:17)
== END 2024-01-30 14:47 | disposition home or self-care (01) ==
LOC: JP.SDS 08:33
PROVIDERS: ATTEND Specialist
DX: M24.851 Other specific joint derangements of right hip, not elsewhere classified (principal)
CPT/HCPCS: 01202; 29999; 36415; 76000; 80048; 81025; 85027; A9270; J0330; J0665; J0689; J1100; J1596; J2405; J2704; J2710; J3010; J3490; J7120